=== PATIENT | male | born 1935 | race Caucasian/White ===

== ENCOUNTER 2017-12-20 06:50 | Day surgery (SDC) | payer MEDICARE, OTHER ==
[~2017-12-20] VITALS: Ht 172.7 cm; Wt 117.9 kg
[~2017-12-20 06:50] MED LIST: AMLODIPINE BESY10 MG PO; ANTI-DIARRHEA2 MG PO; ASPIRIN EC325 MG PO; CYCLOBENZAPRINE10 MG PO; DOXYCYCLINE HY100 M3 PO; GLYBURIDE5 MG PO; HYDROCHLOROTH12.5 MG PO; HYDROCODON-ACE1 EA10 PO; IMODIUM MULTI-1 EACH PO; LEVAQUIN500 MG PO; LOSARTAN POTAS100 MG PO; LOSARTAN POTASS25 MG PO; METOPROLOL TART25 MG PO; NORCO 5-325 TA1 EACH PO; NORTRIPTYLINE H10 MG PO; OMEPRAZOLE40 MG PO; OXYBUTYNIN CHLOR5 MG PO; PRILOSEC40 MG PO; PROBIOTIC1 EAC1 PO; REQUIP0.25 MG PO; ROPINIROLE HCL3 MG PO; TAMSULOSIN HCL0.4 MG PO; TUMS ULTRA400 MG PO; TUMS X-STR300 MG PO; TYLENOL EXTRA500 MG PO
--- NOTE | 2017-12-20 11:22 | NUR ---
12/20/17 Pierre2 Alvina Treviño 1116-PATIENT ARRIVED TO PACU ON 4L OM O2 SAT 100% PATIENT AWAKE DENIES PAIN OR NAUSEA. PATIENT REPORTS NUMBNESS TO FINGERS ABLE TO WIGGLE FINGERS AND MOVE HAND. 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 GOOD CAP REFILL AND WARMTH.
[2017-12-20] MEDS ORDERED: OXYCODON-ACETA1 EAC2 PO (11:29)
[2017-12-20] MEDS ORDERED: IBUPROFEN600 MG PO (11:29)
--- NOTE | 2017-12-20 11:50 | NUR ---
PT RESTING IN BED, ALERT AND ORIENTED. PT WAS DOING HIS BEST TO WAIT CALMLY FOR SURGERY. PT REQUESTED PRAYER, WILL CONTINUE TO FOLLOW NEEDED
--- NOTE | 2018-01-03 14:11 | OR ---
[facility] [address], [place] [address] Signed DATE OF OPERATION: 12/20/2017 SURGEON: Michael Lira MD PREOPERATIVE DIAGNOSIS: Right carpal tunnel syndrome. POSTOPERATIVE DIAGNOSIS: Right carpal tunnel syndrome. PROCEDURE: Right carpal tunnel release. ANESTHESIA: Right [place] block ( Efren Baxter CRNA) and local 10 mL of 0.25% Marcaine. INDICATION: This 82-year-old white man is a patient Dr. Quezada and has been evaluated by Dr. Perez as well for consideration of bilateral carpal tunnel syndrome. His main complaint of his hands is he has "dropping things all the time." He does not have the typical symptoms of tingling in the index, middle, and thumb areas, but does have difficulty in perception of holding objects and drop them all the time. This includes cups, paper, and so on. He does have some tingling of the left small finger suggestive of ulnar nerve entrapment. He does admit that he has "numbness" of his hands, right greater than left, generally speaking, and this has been going on for about 3 years. He underwent neurologic testing and evaluation by Dr. Perez in [place], confirming bilateral carpal tunnel syndrome. His neurologic studies show right worse than left findings. 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 He has been recommended by Dr. Perez to proceed with right carpal tunnel release followed by left carpal tunnel release in time. He understands the risks of operation including, but not limited to bleeding, infection, motor nerve injury and most importantly failure to cure his symptoms and signs. Understanding this, he wished to proceed. FINDINGS: The Colin block was good. Good exposure was noted. The right transverse carpal ligament was well identified and transected in the usual way to the distal wrist crease and onto the palmar fascia. The nerve itself was chronically inflamed. Limited neurolysis was undertaken as well. There was no complication noted at operation. DESCRIPTION OF PROCEDURE: Electronically Signed By: MICHAEL LIRA MD 01/03/18 1411 PATIENT NAME: DEEPALI JUDD OPERATIVE REPORT DATE OF : 35 REPORT #: [id number] PHYSICIAN: MICHAEL LIRA MD PCP: NATY QUEZADA DO REPORT IS CONFIDENTIAL AND NOT TO BE RELEASED WITHOUT AUTHORIZATION [facility] [address] [place] [id number] Signed The patient was brought to the operating room and given a right [place] block by the furnace installer. Preoperative antibiotic Ancef was given 2 g. Sequential compression device stockings were used as well. He was also given intravenous sedation. The right hand was prepared with a chlorhexidine solution and draped sterilely. A rolled blue towel was placed behind the right wrist and a malleable finger retractor applied to allow for good volar visualization. A small incision was made ulnar to the right thenar crease. Dissection carried through the subcutaneous tissue and the palmaris longus incision incised longitudinally revealing the underlying transverse carpal ligament. This was incised more fully. A hemostat was placed beneath it and further transection was undertaken onto the palmar fat. The hemostat was replaced proximally and the more proximal transverse carpal ligament transected using a 15-blade as well as tenotomy scissors under direct visualization with a hemostat protecting the underlying nerve. Examination of the nerve showed there to be chronic inflammatory change. A limited neurolysis was undertaken. Examination proximally and distally showed no sign of bleeding or other problem. A 10 mL of 0.25% Marcaine was injected locally during the course of the procedure, as he did have a mild amount of sensation during this time, though the block overall was good. The wound was then closed with interrupted 2-0 nylon suture. Xeroform dressing was applied as was a rolled piece of gauze and a Flexicon applied. As we were out of the usual cock-up wrist splint, a handmade fiberglass splint was made and the arm wrapped with an Angel wrap. Pressure was applied to the operative site and the tourniquet was taken down. Tourniquet time was 24 minutes. Once rubor returned and receded from the hand, pressure was withdrawn. The patient was transferred to recovery room in good condition having suffered no known complications. Sponge, needle, and counts reported as correct x3. MD JADYN Carlos/JOANNAL /[id number] cc: DO Michael You MD Electronically Signed By: MICHAEL LIRA MD 01/03/18 1411 PATIENT NAME: DEEPALI JUDD OPERATIVE REPORT DATE OF : 35 REPORT #: [id number] PHYSICIAN: MICHAEL LIRA MD PCP: NATY QUEZADA DO REPORT IS CONFIDENTIAL AND NOT TO BE RELEASED WITHOUT AUTHORIZATION [address] [place], [place] [address] Signed Copies: NATY QUEZADA JOHN MD ~ Electronically Signed By: MICHAEL LIRA MD 01/03/18 1411 PATIENT NAME: CARLALYDEEPALI OPERATIVE REPORT DATE OF : 35 REPORT #: [id number] PHYSICIAN: MICHAEL LIRA MD PCP: NATY QUEZADA DO REPORT IS CONFIDENTIAL AND NOT TO BE RELEASED WITHOUT AUTHORIZATION
== END 2017-12-20 12:30 | disposition home or self-care (01) ==
LOC: DS 06:50 → OPS 06:50 → DS 08:15 → OPS 12:30
PROVIDERS: Surgery
PROC: 01N50ZZ Release Median Nerve, Open Approach (ICD-10-PCS; principal; 2017-12-20 08:15)
DX: G56.03 Carpal tunnel syndrome, bilateral upper limbs (principal); E11.9 Type 2 diabetes mellitus without complications; K21.9 Gastro-esophageal reflux disease without esophagitis; E78.00 Pure hypercholesterolemia, unspecified; I10 Essential (primary) hypertension; G25.81 Restless legs syndrome; E66.01 Morbid (severe) obesity due to excess calories; Z88.8 Allergy status to other drugs, medicaments and biological substances; Z79.899 Other long term (current) drug therapy; Z90.49 Acquired absence of other specified parts of digestive tract; Z98.890 Other specified postprocedural states; Z68.39 Body mass index [BMI] 39.0-39.9, adult; Z85.46 Personal history of malignant neoplasm of prostate
CPT/HCPCS: 01810; J0690; J2250; J3010; J7120

== ENCOUNTER 2017-12-26 13:24 | Emergency (ER) | payer MEDICARE, OTHER ==
[~2017-12-26] VITALS: Ht 172.7 cm; Wt 116.1 kg
[~2017-12-26 13:24] MED LIST changes: +IBUPROFEN600 MG PO; +OXYCODON-ACETA1 EAC2 PO
== END 2017-12-26 14:56 | disposition home or self-care (01) ==
LOC: ED 13:24
DX: M79.661 Pain in right lower leg (principal); E78.5 Hyperlipidemia, unspecified; I10 Essential (primary) hypertension; I25.10 Atherosclerotic heart disease of native coronary artery without angina pectoris; E11.9 Type 2 diabetes mellitus without complications; K21.9 Gastro-esophageal reflux disease without esophagitis; E66.9 Obesity, unspecified; Z88.8 Allergy status to other drugs, medicaments and biological substances; Z79.899 Other long term (current) drug therapy; Z79.2 Long term (current) use of antibiotics; Z79.82 Long term (current) use of aspirin; Z85.46 Personal history of malignant neoplasm of prostate
CPT/HCPCS: 93971; 99284

== ENCOUNTER 2018-01-07 21:59 | Emergency (ER) | payer MEDICARE, OTHER ==
[~2018-01-07] VITALS: Ht 172.7 cm; Wt 117.9 kg
== END 2018-01-08 00:15 | disposition home or self-care (01) ==
LOC: ED 21:59
DX: G89.29 Other chronic pain (principal); M54.5 Low back pain; I10 Essential (primary) hypertension; E11.9 Type 2 diabetes mellitus without complications; K21.9 Gastro-esophageal reflux disease without esophagitis; E66.9 Obesity, unspecified; Z87.891 Personal history of nicotine dependence; Z88.8 Allergy status to other drugs, medicaments and biological substances; Z79.84 Long term (current) use of oral hypoglycemic drugs; Z79.899 Other long term (current) drug therapy; Z79.82 Long term (current) use of aspirin
CPT/HCPCS: 96374; 96375; 99283; J1885; J2930

== ENCOUNTER 2019-02-07 08:40 | Emergency (ER) | payer MEDICARE, OTHER ==
[~2019-02-07] VITALS: Ht 172.7 cm; Wt 115.7 kg
--- OUTSIDE RECORDS SUMMARY | ~2019-02-07 | XMS | Encounter Summary ---
Demographics + + + | Address | [address] | | | [place] [address] | + + + | Home Phone | | + + + | Preferred Language | Unknown | + + + | Marital Status | | + + + | Christian Affiliation | Unknown | + + + | Race | Unknown | + + + | Ethnic Group | Unknown | + + + Author + + + | Author | [facility] | | | and Rezaana | + + + | Organization | [facility] | | | and Rezaana | [...] Team Providers + +------+ + | Care Euclid Operator Name | Role | Phone | + [...] | | stenosis | [address] | [place] | | | | | Lumbar | [address] | [address] | | | | | stenosis | [place], | [facility] [place] | | | | | with | [place] [address] | [address] Phone: | | | | | neurogenic | Phone: | [phone] | | | | | claudication | [phone] | Fax: | | | | | Lumbar | Fax: | [phone] | | | | | radiculopath | [phone] | | | | | | y [...] | | stenosis | [place], | [place], [place] | | | | | with | [place] [address] | [address] Phone: | | | | | neurogenic | Phone: | [phone] | | | | | claudication | [phone] | Fax: | | | | | Lumbar | Fax: | [phone] | | | | | radiculopath | [phone] | | | | | | y [...] + + | 02/04/ | Office | [facility] | Jose Martinez, | Lumbar radiculopathy | | 2019 | Visit | PHYSIATRY [address] | PA-C [address] | (Primary Dx); | | | | [place], | [address] [place] | Lumbar foraminal | | | | [place] [address] | [place] [address] | stenosis; Lumbar | | | | [phone] | [phone] | stenosis with | | | | [...] of the procedure you must provide a shuttle van driver to take you home. For all [...] press against a nerve. Date Last Reviewed: 12/27/201719994877-7457 [employer]. [address] [place] [address], [place] [address]. [facility]. This information is not intended as a substitute for professional medical care. Always follow your healthcare professional's instructions. documented in this encounter Progress Notes Jose Martinez PA-C - 02/04/2019 1040 PDTFormatting of this note might be different from th e original. Jose Martinez PA-C [address] [facility], [address] [place] [address] FAX: PHYSICAL MEDICINE AND REHABILITATION H&P CHIEF [...] Dependent edema Due to inactivity Depression Diabetes ([facility]) Gastric reflux Heart disease Hereditary and idiopathic neuropathy, unspecified High cholesterol History of blood transfusion History of fracture Pars interarticularis History of ulceration Ulcer Hypertension Left atrial enlargement Lumbago Lumbar spondylosis Murmur Echo 09/2017 Neuropathy Feet Obstructive sleep apnea (adult) (pediatric) Other spondylosis, lumbar region Peripheral neuropathy Pneumonia Prostate cancer ([facility]) 1994 Radiation: 10/1995-12/1995, [facility] Right atrial enlargement Type 2 diabetes mellitus without complication ([facility]) PAST SURGICAL HISTORY: Past Surgical History: Procedure Laterality Date CARPAL TUNNEL RELEASE Right 12/17/2017 CATARACT REMOVAL Bilateral CORONARY ARTERY BYPASS GRAFT 07/31/2004 [facility] CORONARY ARTERY BYPASS GRAFT 07/09/2012 [facility] GALLBLADDER SURGERY 04/19/2007 Dr. 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 He has appropriate fund of knowledge [...] PT (multiple sessions over the years) and resident care aide. Unfortunately Feliz Martinez continues to have significant [...] | | | [address] [facility] | | | | | | [place] [address] | | | | | | [phone] | | | | | | | | | | | | [place] | | +--------+ + + + + [...] + +--------+ + + | Dr. Auguste[facility] | Routin | Lumbar foraminal | [...]
--- OUTSIDE RECORDS SUMMARY | ~2019-02-07 | XMS | Clinical Summary ---
Demographics + + + | Address | [address] | | | [place] [address] | + + + | Home Phone | | + + + | Preferred Language | Unknown | + + + | Marital Status | | + + + | Sabianist Affiliation | Unknown | + + + | Race | Unknown | + + + | Ethnic Group | Unknown | + + + Author + + + | Author | [facility] | | | and Rezaana | + + + | Organization | [facility] | | | and Rezaana [...] Team Providers + +------+ + | Care Gimp Tacker Name | Role | Phone | + [...] LComment: | | 09/25/2016 - letter from [facility]; poss exposure NTM in bypass Nov | [...] | 2018 | Encounter | | KEVIN Accounts Pay[employer] Professional, | | | | | | [facility] [...] | | | | | | [place] [address] | | | | | | [phone] | | | | | | | | | | | | Accounts Payable Professional, [facility] | | +--------+ + + + [...] + +--------+ | MEDICARE | MEDICA | [id number] | | [phone] | | Medica | | | RE | | 000-Pr | 5 | | re | | | PART A | | esent | | | | | | AND B | | | | | | + +--------+ +--------+ + +--------+ | MODA | MODA | [id number] | 10/29/19 | [phone] | [address] | Indemn | | | HEALTH | | 14-Pre | 9 | [address] | ity | | | MDCR | | sent | | [place], | | | | [place] | | | | [place] [address] | | + +--------+ +--------+ + +--------+ [...] | [address] [place] | | | [place] | | | 5 (Home) | [address] | + +--------+ +--------+ + + Advance Directives Patient has advance care planning documents on file. For more information, please contact:[facility] [address]
--- OUTSIDE RECORDS SUMMARY | ~2019-02-07 | XMS | Encounter Summary ---
Demographics + + + | Address | [address] | | | [place] [address] | + + + | Home Phone | | + + + | Preferred Language | Unknown | + + + | Marital Status | | + + + | Anglican Affiliation | Unknown | + + + | Race | Unknown | + + + | Ethnic Group | Unknown | + + + Author + + + | Author | [facility] | + + + | Organization | [facility] | + + + | Address | Unknown | + + + | Phone | Unavailable | + + + Support + + +---------+ + | Name | Relationship | Address | Phone | + + +---------+ + | Salas Martinez | ECON | Unknown | | + + +---------+ + Care Team Providers + +------+ + | Care Acid Tester Name | Role | Phone | + [...] [place] | | | | | | [address] | | | | | | [phone] | | | +--------+ + + + [...] | | | | | | [place] [address] | | | | | | [phone] | | | | | | | | +--------+---------+ + + + as of this encounter Visit Diagnoses Not on filein this encounter"
--- OUTSIDE RECORDS SUMMARY | ~2019-02-07 | XMS | Clinical Summary ---
Demographics + + + | Address | [address] | | | [place] [address] | + + + | Home Phone | | + + + | Preferred Language | Unknown | + + + | Marital Status | | + + + | Bahai Affiliation | Unknown | + + + | Race | Unknown | + + + | Ethnic Group | Unknown | + + + Author + + + | Author | [facility] | + + + | Organization | [facility] | + + + | Address | Unknown | + + + | Phone | Unavailable | + + + Support + + +---------+ + | Name | Relationship | Address | Phone | + + +---------+ + | Salas Martinez | ECON | Unknown | | + + +---------+ + Care Team Providers + +------+ + | Care Education Rn Name | Role | Phone | + [...] log | | | | | | [phone]) | +--------+ + + + + | 01/07/ | Office | | Henok Dumont, | Hypertension, | | 2018 | Visit | | MD | unspecified type | | | | | | (Primary Dx); | | | | | | Coronary artery | | | | | | disease involving | | | | | | [place] coronary | | | | | | artery of [place] | | | | | | heart with other | | | | | | form of angina | | | | | | pectoris ([facility]); S/P | | | | | | CABG x 3; S/P PTCA | | | | | | (percutaneous | | | | | | transluminal | | | | | | coronary | | | | | | angioplasty); NSTEMI | | | | | | (non-ST elevated | | | | | | myocardial | | | | | | infarction) ([facility]); | | | | | | Hyperlipidemia, [...] | | | | | | [place] [address] | | | | | | [phone] | | | | | | | [...] | | 2015 | 5 | | [id number]: Qty: 1 on | | | | | | /[id number] | | 07/09/2012 by Davi, | | [...] + + + + | Calculated P [place] | 33 | degrees | [facility] | + + + + + | Calculated R [place] | 9 | degrees | [facility] | + + + + + | Calculated T [place] | 27 | degrees | [facility] [...] | | | | | by [facility] Read Only, | | | | | [facility] Kate ([id number]), | | | | | assignment editor oKrey Deluna | | | | | (253) on 01/07/2019 | | | | | 3:14:57 PM | | | + + + + + + + + + + | Performing | Address | City/State/Zipcode | Phone Number | | Organization | | | | + + + + + | [facility] | [address] | [place] [address] | | + + + + + [...] +------+-------+ + | MEDICARE | MEDICA | [id number] | | | [address] | | | RE | | | | [place], [place] [address] | | | IP-OP | | | | | + +--------+ +------+-------+ + | ODS HEALTH PLAN | ODS - | [id number] | | | | | | GENERI [...] | | | [place] | | | [phone] | [address] | + +--------+ +--------+ + +
--- OUTSIDE RECORDS SUMMARY | ~2019-02-07 | XMS | Encounter Summary ---
Demographics + + + | Address | [address] | | | [place] [address] | + + + | Home Phone | | + + + | Preferred Language | Unknown | + + + | Marital Status | | + + + | Methodist Affiliation | Unknown | + + + | Race | Unknown | + + + | Ethnic Group | Unknown | + + + Author + + + | Author | [facility] | + + + | Organization | [facility] | + + + | Address | Unknown | + + + | Phone | Unavailable | + + + Support + + +---------+ + | Name | Relationship | Address | Phone | + + +---------+ + | Salas Martinez | ECON | Unknown | | + + +---------+ + Care Team Providers + +------+ + | Care Broker Assistant Name | Role | Phone | [...] + + | 01/07/ | Office | [facility] | Henok Dumont, | Hypertension, | | 2019 | Visit | Cardiology Fazal | MD [address] | unspecified type | | | | [address] | [place], | (Primary Dx); | | | | [facility] [address] | [place] [address] | Coronary artery | | | | [place] [address] | [phone] | disease involving | | | | [phone] | | [place] coronary | | | | | | artery of [place] | | | | | | heart with other | | | | | | form of angina | | | | | | pectoris ([facility]); S/P | | | | | [...] | | | | | | infarction) ([facility]); | | | | | | [...] 70-80% > 3.0 x 16 mm Taxus LLOA, patent ROSA, occlud ed SVGs to OM, [...] Hypertension Neuropathy NSTEMI (non-ST elevated myocardial infarction) ([facility]) 07/05/2012 NSTEMI Occlusion of carotid artery < 50% MAICOL stenosis 2011 Prostate cancer ([facility]) 1994 radiation therapy 1995 RLS (restless [...] - REDO; Surgeon: Lauren Tomlinson MD; Location: [facility]; Service: C ardiac; Laterality: N/A; [...] Electrocardiogram, 12-lead Coronary artery disease involving [place] coronary artery of [place] heart with other form of angina pectoris (HCC) S/P CABG x 3 S/P PTCA (percutaneous transluminal coronary angioplasty) NSTEMI (non-ST elevated myocardial infarction) ([facility]) Hyperlipidemia, unspecified hyperlipidemia type Pedal edema [...] | | | | | | [place] [address] | | | | | | [phone] | | | | | | | [...] + + + + | Calculated P [place] | 33 | degrees | [facility] | + + + + + | Calculated R [place] | 9 | degrees | [facility] | + + + + + | Calculated T [place] | 27 | degrees | [facility] [...] | | | | | by [facility] [place] Read Only, | | | | | [facility] Kate (299), | | | | | greeting card editor Korey Deluna | | | | | (253) on 01/07/2019 | | | | | 3:14:57 PM | | | + + + + + + + + + + | Performing | Address | City/State/Zipcode | Phone Number | | Organization | | | | + + + + + | [facility] | [address] | [place] [address] | | + + + + + in this encounter Visit Diagnoses + + | Diagnosis | + + | Hypertension, unspecified type - Primary | + + | Coronary artery disease involving [place] coronary artery of [place] heart with other | | form of [...]
--- OUTSIDE RECORDS SUMMARY | ~2019-02-07 | XMS | Encounter Summary ---
Demographics + + + | Address | [address] | | | [place] [address] | + + + | Home Phone | | + + + | Preferred Language | Unknown | + + + | Marital Status | | + + + | Amish Affiliation | Unknown | + + + | Race | Unknown | + + + | Ethnic Group | Unknown | + + + Author + + + | Author | [facility] | | | and Rezaana | + + + | Organization | [facility] | | | and [...] Team Providers + +------+ + | Care Automatic Buffer Name | Role | Phone | + [...] | | stenosis | [address] | [place] | | | | | Lumbar | [address] | [address] | | | | | stenosis | [place], | [facility] [place] | | | | | with | [place] [address] | [address] Phone: | | | | | neurogenic | Phone: | [phone] | | | | | claudication | [phone] | Fax: | | | | | Lumbar | Fax: | [phone] | | | | | radiculopath | [phone] | | | | | | y [...] | | stenosis | [place], | [place], [place] | | | | | with | [place] [address] | [address] Phone: | | | | | neurogenic | Phone: | [phone] | | | | | claudication | [phone] | Fax: | | | | | Lumbar | Fax: | [phone] | | | | | radiculopath | [phone] | | | | | | y [...] + + | 02/04/ | Office | [facility] | Jose Martinez, | Lumbar radiculopathy | | 2019 | Visit | PHYSIATRY [address] | PA-C [address] | (Primary Dx); | | | | [place], | [address] [place] | Lumbar foraminal | | | | [place] [address] | [place] [address] | stenosis; Lumbar | | | | [phone] | [phone] | stenosis with | | | | [...] of the procedure you must provide a guard driver to take you home. For all [...] press against a nerve. Date Last Reviewed: 12/27/201719993242-7946 [employer]. [address] [place] [address], [place] [address]. All [facility] center[facility] ts reserved. This information is not intended as a substitute for professional medical care. Always follow your healthcare professional's instructions. documented in this encounter Progress Notes Jose Martinez PA-C - 02/04/2019 1040 PDTFormatting of this note might be different from th e original. Jose Martinez PA-C [address] [facility], [address] [place] [address] FAX: PHYSICAL MEDICINE AND REHABILITATION H&P CHIEF [...] Dependent edema Due to inactivity Depression Diabetes ([facility]) Gastric reflux Heart disease Hereditary and idiopathic neuropathy, unspecified High cholesterol History of blood transfusion History of fracture Pars interarticularis History of ulceration Ulcer Hypertension Left atrial enlargement Lumbago Lumbar spondylosis Murmur Echo 09/2017 Neuropathy Feet Obstructive sleep apnea (adult) (pediatric) Other spondylosis, lumbar region Peripheral neuropathy Pneumonia Prostate cancer ([facility]) 1994 Radiation: 10/1995-12/1995, [facility] Right atrial enlargement Type 2 diabetes mellitus without complication ([facility]) PAST SURGICAL HISTORY: Past Surgical History: Procedure Laterality Date CARPAL TUNNEL RELEASE Right 12/17/2017 CATARACT REMOVAL Bilateral CORONARY ARTERY BYPASS GRAFT 07/31/2004 [facility] CORONARY ARTERY BYPASS GRAFT 07/09/2012 [facility] GALLBLADDER SURGERY 04/19/2007 Dr. Vinson, [facility] PROSTATE SURGERY 1994 Prostate Cancer [...] has no apparent deficits with short or watermelon harvesting supervisor memory. He has appropriate fund of [...] PT (multiple sessions over the years) and care team coordinator scheduler. Unfortunately Feliz Martinez continues to have significant [...] | | | | [address] [facility] | | | | | | [place] [address] | | | | | | [phone] | | | | | | | | | | | | Contracting ExecutiveDarrell | | +--------+ + + + + [...] + +--------+ + + | Dr. Auguste_Neurosurgery [facility] | Routin | Lumbar foraminal | Ordered: [...]
--- OUTSIDE RECORDS SUMMARY | ~2019-02-07 | XMS | Encounter Summary ---
Demographics + + + | Address | [address] | | | [place] [address] | + + + | Home Phone | | + + + | Preferred Language | Unknown | + + + | Marital Status | | + + + | Christian Affiliation | Unknown | + + + | Race | Unknown | + + + | Ethnic Group | Unknown | + + + Author + + + | Author | [facility] | | | and Rezaana | + + + | Organization | [facility] | | | and Rezaana [...] Team Providers + +------+ + | Care Pulp Roller Name | Role | Phone | + [...] + + | 11/25/ | Office | [facility] [place] | Juan, Jose, | Lumbar foraminal | | 2019 | Visit | PHYSIATRY [address] | PA-C [address] | stenosis (Primary | | | | [place], | [address] [place] | Dx); Lumbar stenosis | | | | [place] [address] | [place] [address] | with neurogenic | | | | [phone] | [phone] | claudication; Lumbar | | | | [...] of the procedure you must provide a emt driver to take you home. For all procedur es it is recommended that someone else drive you home. documented in this encounter Progress Notes Jose Martinez PA-C - 11/25/2018 1120 PSTFormatting of this note might be different from reva alan. Jose Martinez PA-C [address] [facility], [address] [place] [address] FAX: PHYSICAL MEDICINE AND REHABILITATION [...] Pneumonia Prostate cancer (HCC) 1994 Radiation: 10/1995-12/1995, [facility] Right atrial enlargement Type 2 diabetes mellitus without complication ([facility]) PAST SURGICAL HISTORY: Past Surgical History: Procedure Laterality Date CARPAL TUNNEL RELEASE Right 12/17/2017 CATARACT REMOVAL Bilateral CORONARY ARTERY BYPASS GRAFT 07/31/2004 [facility] CORONARY ARTERY BYPASS GRAFT 07/09/2012 [facility] GALLBLADDER SURGERY 04/19/2007 Dr. Vinson, [facility] PROSTATE SURGERY 1994 Prostate Cancer [...] (multiple sessions over the years) and career development director. Unfortunately Feliz Martinez continues to have significant [...] | | | | | | [place] [address] | | | | | | [phone] | | | | | | | | | | | | Child Adolescent Psychiatrist, [facility] | | +--------+ + + + [...]
--- OUTSIDE RECORDS SUMMARY | ~2019-02-07 | XMS | Encounter Summary ---
Demographics + + + | Address | [address] | | | [place] [address] | + + + | Home Phone | | + + + | Preferred Language | Unknown | + + + | Marital Status | | + + + | Catholic Affiliation | Unknown | + + + | Race | Unknown | + + + | Ethnic Group | Unknown | + + + Author + + + | Author | [facility] | + + + | Organization | [facility] | + + + | Address | Unknown | + + + | Phone | Unavailable | + + + Support + + +---------+ + | Name | Relationship | Address | Phone | + + +---------+ + | Salas Martinez | ECON | Unknown | | + + +---------+ + Care Team Providers + +------+ + | Care Credit Union Examiner Name | Role | Phone | + [...] | | [address] | | [phone]) | | | | [place] | | | | | | [address] | | | | | | [phone] | | | +--------+ + + + [...] | | | | | | [place] [address] | | | | | | [phone] | | | | | | | | +--------+---------+ + + + as of this encounter Visit Diagnoses Not on filein this encounter"
--- OUTSIDE RECORDS SUMMARY | ~2019-02-07 | XMS | Encounter Summary ---
Demographics + + + | Address | [address] | | | [place] [address] | + + + | Home Phone | | + + + | Preferred Language | Unknown | + + + | Marital Status | | + + + | Hinduism Affiliation | Unknown | + + + | Race | Unknown | + + + | Ethnic Group | Unknown | + + + Author + + + | Author | [facility] | | | and Rezaana | + + + | Organization | [facility] | | | and Rezaana [...] Team Providers + +------+ + | Care Rubber Tubing Backer Name | Role | Phone | + [...] + + | 11/25/ | Office | [facility] [place] | Juan, Jose, | Lumbar foraminal | | 2019 | Visit | PHYSIATRY [address] | PA-C [address] | stenosis (Primary | | | | [place], | [address] [place] | Dx); Lumbar stenosis | | | | [place] [address] | [place]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 For all procedur es it is recommended that someone else drive you home. documented in this encounter Progress Notes Jose Martinez PA-C - 11/25/2018 1120 PSTFormatting of this note might be different from reva alan. Jose Martinez PA-C [address] [facility], [address] [place] [address] FAX: PHYSICAL MEDICINE AND REHABILITATION [...] Pneumonia Prostate cancer (HCC) 1994 Radiation: 10/1995-12/1995, [facility] Right atrial enlargement Type 2 diabetes mellitus without complication ([facility]) PAST SURGICAL HISTORY: Past Surgical History: Procedure Laterality Date CARPAL TUNNEL RELEASE Right 12/17/2017 CATARACT REMOVAL Bilateral CORONARY ARTERY BYPASS GRAFT 07/31/2004 [facility] CORONARY ARTERY BYPASS GRAFT 07/09/2012 [facility] GALLBLADDER SURGERY 04/19/2007 Dr. Vinson, [facility] PROSTATE SURGERY 1994 Prostate Cancer CURRENT [...] has no apparent deficits with short or assisted memory. He has appropriate fund of knowledge [...] PT (multiple sessions over the years) and ambulatory care nurse. Unfortunately Feliz Martinez continues to [...] | | | | | | [place] [address] | | | | | | [phone] | | | | | | | | | | | | Channeler Runner, [facility] | | +--------+ + + + [...]
--- OUTSIDE RECORDS SUMMARY | ~2019-02-07 | XMS | Clinical Summary ---
Demographics + + + | Address | [address] | | | [place] [address] | + + + | Home Phone | | + + + | Preferred Language | Unknown | + + + | Marital Status | | + + + | Alevism Affiliation | Unknown | + + + | Race | Unknown | + + + | Ethnic Group | Unknown | + + + Author + + + | Author | [facility] | | | and Rezaana | + + + | Organization | [facility] | | | and Rezaana | [...] Team Providers + +------+ + | Care Regional Safety Manager Name | Role | Phone | [...] LComment: | | 09/25/2016 - letter from [facility]; poss exposure NTM in bypass Nov | [...] | 2018 | Encounter | | KEVIN Residential Solar Consultant, | | | | | | [facility] [...] | | | | | | [place] [address] | | | | | | [phone] | | | | | | | | | | | | Residential Solar Consultant, [facility] | | +--------+ + + + [...] + +--------+ | MEDICARE | MEDICA | [id number] | | [phone] | | Medica | | | RE | | 000-Pr | 5 | | re | | | PART A | | esent | | | | | | AND B | | | | | | + +--------+ +--------+ + +--------+ | MODA | MODA | [id number] | 10/29/19 | [phone] | [address] | Indemn | | | HEALTH | | 14-Pre | 9 | [address] | ity | | | MDCR | | sent | | [place], | | | | [place] | | | | [place] [address] | | + +--------+ +--------+ + +--------+ [...] rosey | | | 5 (Home) | [address] | + +--------+ +--------+ + + Advance Directives Patient has advance care planning documents on file. For more information, please contact:[facility] [place] [address]
--- OUTSIDE RECORDS SUMMARY | ~2019-02-07 | XMS | Encounter Summary ---
Demographics + + + | Address | [address] | | | [place] [address] | + + + | Home Phone | | + + + | Preferred Language | Unknown | + + + | Marital Status | | + + + | Anglican Affiliation | Unknown | + + + | Race | Unknown | + + + | Ethnic Group | Unknown | + + + Author + + + | Author | [facility] | | | and Rezaana | + + + | Organization | [facility] | | | and Rezaana [...] Team Providers + +------+ + | Care Airflight Attendants Supervisor Name | Role | Phone | [...] | Lumbar | Charli, | [address] | | | | | radiculopath | Elias Leal MD | [place], | | | | | y | [address] | [place] | | | | | Procedures | [place] | [address] | | | | | [place] INJECT | [place], [place] | Phone: | | | | | ANES/STEROID | [address] | [phone] | | | | | [place] | Phone: | Fax: | | | | | LUMBAR/SACRA | [phone] | [phone] | | | | | [address] | Fax: | | | | | | GUIDE ,1 | [phone] | | | | | | L[place]EL [place] | | | | | | | [...] + + | 11/25/ | Hospital | [facility] | Jose Martinez, | Lumbar radiculopathy | | 2019 | Encounter | MED CTR XRAY [address] | PA-C [address] | | | | | [place] | [address] [place] | | | | | [place] [address] | [place] [address] | | | | | [phone] | [phone] | | | | | | | | | | | | Avionics Systems Integration SpecialistMelany | | +--------+ + + + + [...] | | | | [address] [facility] | | | | | | [place] [address] | | | | | | [phone] | | | | | | | | | | | | Avionics Systems Integration SpecialistDarrell | | +--------+ + + + + [...]
--- OUTSIDE RECORDS SUMMARY | ~2019-02-07 | XMS | Encounter Summary ---
Demographics + + + | Address | [address] | | | [place] [address] | + + + | Home Phone | | + + + | Preferred Language | Unknown | + + + | Marital Status | | + + + | Scientologist Affiliation | Unknown | + + + | Race | Unknown | + + + | Ethnic Group | Unknown | + + + Author + + + | Author | [facility] | + + + | Organization | [facility] | + + + | Address | Unknown | + + + | Phone | Unavailable | + + + Support + + +---------+ + | Name | Relationship | Address | Phone | + + +---------+ + | Salas Martinez | ECON | Unknown | | + + +---------+ + Care Team Providers + +------+ + | Care Senior Management Consultant Name | Role | Phone | [...] | | [address] | | [address]) | | | | [place] | | | | | | [address] | | | | | | [phone] | | | +--------+ + + + [...] | | | | | | [place] [address] | | | | | | [phone] | | | | | | | | +--------+---------+ + + + as of this encounter Visit Diagnoses Not on filein this encounter"
--- OUTSIDE RECORDS SUMMARY | ~2019-02-07 | XMS | Clinical Summary ---
Demographics + + + | Address | [address] | | | [place] [address] | + + + | Home Phone | | + + + | Preferred Language | Unknown | + + + | Marital Status | | + + + | Holiness Affiliation | Unknown | + + + | Race | Unknown | + + + | Ethnic Group | Unknown | + + + Author + + + | Author | [facility] [email or web address] [facility] | + + + | Organization | [facility] [email or web address] [facility] | + + + | Address | Unknown | + + + | Phone | Unavailable | + + + Support + + +---------+ + | Name | Relationship | Address | Phone | + + +---------+ + | Salas Martinez | ECON | Unknown | | + + +---------+ + Care Team Providers + +------+ + | Care Carpenter Mold Name | Role | Phone | + [...] log | | | | | | [phone]) | +--------+ + + + + | 01/07/ | Office | | Henok Dumont, | Hypertension, | | 2018 | Visit | | MD | unspecified type | | | | | | (Primary Dx); | | | | | | Coronary artery | | | | | | disease involving | | | | | | moapa coronary | | | | | | artery of mo[place] | | | | | | heart [...] | | | | | | [place] [address] | | | | | | [phone] | | | | | | | [...] | | 2015 | 5 | | [id number]: Qty: 1 on | | | | | | /[id number] | | 07/09/2012 by Davi, | | [...] + + + + | Calculated P Sinai | 33 | degrees | [facility] EKG | + + + + + | Calculated R Sinai | 9 | degrees | [facility] EKG | + + + + + | Calculated T Sinai | 27 | degrees | [facility] EKG [...] | | | | | by [facility] [place] Read Only, | | | | | ICA Kate ([id number]), | | | | | clinical editor Korey Deluna | | | | | (253) on 01/07/2019 | | | | | 3:14:57 PM | | | + + + + + + + + + + | Performing | Address | City/State/Zipcode | Phone Number | | Organization | | | | + + + + + | [facility] | [address] | [place] [address] | | + + + + + [...] +------+-------+ + | MEDICARE | MEDICA | [id number] | | | [address] | | | RE | | | | [place], [place] [address] | | | IP-OP | | | | | + +--------+ +------+-------+ + | [employer] | ODS - | [id number] | | | | | | GENERI [...] | | | rosey | | | [phone] | [phone] | + +--------+ +--------+ + +
--- OUTSIDE RECORDS SUMMARY | ~2019-02-07 | XMS | Encounter Summary ---
Demographics + + + | Address | [address] | | | [place] [address] | + + + | Home Phone | | + + + | Preferred Language | Unknown | + + + | Marital Status | | + + + | Mandaen Affiliation | Unknown | + + + | Race | Unknown | + + + | Ethnic Group | Unknown | + + + Author + + + | Author | [facility] | + + + | Organization | [facility] | + + + | Address | Unknown | + + + | Phone | Unavailable | + + + Support + + +---------+ + | Name | Relationship | Address | Phone | + + +---------+ + | Salas Martinez | ECON | Unknown | | + + +---------+ + Care Team Providers + +------+ + | Care Java Programming Professor Name | Role | Phone | [...] 01/07/ | Office | [facility] | Henok Dumont, | Hypertension, | | 2019 | Visit | Cardiology Fazal | MD [address] | unspecified type | | | | [address] | [place], | (Primary Dx); | | | | [facility] [address] | [place] [address] | Coronary artery | | | | [place] [address] | [phone] | disease involving | | | | [phone] | | [place] coronary | | | | | | artery of [place] | | | | | | heart with other | | | | | | form of angina | | | | | | pectoris ([facility]); S/P | | | | | [...] | | | | | | infarction) ([facility]); | | | | | | [...] Hypertension Neuropathy NSTEMI (non-ST elevated myocardial infarction) ([facility]) 07/05/2012 NSTEMI Occlusion of carotid artery < 50% MAICOL stenosis 2011 Prostate cancer ([facility]) 1994 radiation therapy 1995 RLS (restless [...] - REDO; Surgeon: Lauren Tomlinson MD; Location: [facility] OR; Service: C ardiac; Laterality: [...] - Electrocardiogram, 12-lead 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 3 S/P PTCA (percutaneous transluminal coronary angioplasty) NSTEMI (non-ST elevated myocardial infarction) ([facility]) Hyperlipidemia, unspecified hyperlipidemia type Pedal edema [...] | | | | | | [place] [address] | | | | | | [phone] | | | | | | | [...] + + + + | Calculated P Redford | 33 | degrees | [facility] EKG | + + + + + | Calculated R Redford | 9 | degrees | [facility] EKG | + + + + + | Calculated T Redford | 27 | degrees | [facility] EKG [...] | | | | | by [facility] [place] Read Only, | | | | | ICA Kate ([id number]), | | | | | purchase request editor Korey Deluna | | | | | (253) on 01/07/2019 | | | | | 3:14:57 PM | | | + + + + + + + + + + | Performing | Address | City/State/Zipcode | Phone Number | | Organization | | | | + + + + + | [facility] | [address] | [place] [address] | | + + + + + in this encounter Visit Diagnoses + + | Diagnosis | + + | Hypertension, unspecified type - Primary | + + | Coronary artery disease involving guidivil[place] coronary artery of guidivil[place] heart with other | | form of [...]
--- OUTSIDE RECORDS SUMMARY | ~2019-02-07 | XMS | Encounter Summary ---
Demographics + + + | Address | [address] | | | [place] [address] | + + + | Home Phone | | + + + | Preferred Language | Unknown | + + + | Marital Status | | + + + | Presybeterian Affiliation | Unknown | + + + | Race | Unknown | + + + | Ethnic Group | Unknown | + + + Author + + + | Author | [facility] | | | and Rezaana | + + + | Organization | [facility] | | | and Rezaana [...] Team Providers + +------+ + | Care Room Cleaner Name | Role | Phone | [...] | Lumbar | Charli, | [address] | | | | | radiculopath | Elias Leal MD | [place], | | | | | y | [address] | [place] | | | | | Procedures | [place] | [address] | | | | | [place] INJECT | [place] | Phone: | | | | | ANES/STEROID | [address] | [phone] | | | | | FORAMEN | Phone: | Fax: | | | | | LUMBAR/SACRA | [phone] | [phone] | | | | | L [address] IMG | Fax: | | | | | | GUIDE ,1 | [phone] | | | | | | LEVEL [...] + + | 11/25/ | Hospital | [facility] | Jose Martinez, | Lumbar radiculopathy | | 2019 | Encounter | MED CTR XRAY [address] | PA-C [address] | | | | | [place] | [address] [place] | | | | | [place] [address] | [place] [address] | | | | | [phone] | [phone] | | | | | | | | | | | | Behavioral Health TechMelany | | +--------+ + + + + [...] | | | | [address] [facility] | | | | | | [place] [address] | | | | | | [phone] | | | | | | | | | | | | Behavioral Health TechDarrell | | +--------+ + + + + [...]
--- OUTSIDE RECORDS SUMMARY | ~2019-02-07 | XMS | Encounter Summary ---
Demographics + + + | Address | [address] | | | [place] [address] | + + + | Home Phone | | + + + | Preferred Language | Unknown | + + + | Marital Status | | + + + | Synagogue Affiliation | Unknown | + + + | Race | Unknown | + + + | Ethnic Group | Unknown | + + + Author + + + | Author | [facility] [employer] [facility] | + + + | Organization | [facility] [employer] [facility] | + + + | Address | Unknown | + + + | Phone | Unavailable | + + + Support + + +---------+ + | Name | Relationship | Address | Phone | + + +---------+ + | Salas Martinez | ECON | Unknown | | + + +---------+ + Care Team Providers + +------+ + | Care Cake Maker Name | Role | Phone | + [...] [place] | | | | | | [address] | | | | | | [phone] | | | +--------+ + + + [...] | | | | | | [place] [address] | | | | | | [phone] | | | | | | | | +--------+---------+ + + + as of this encounter Visit Diagnoses Not on filein this encounter"
[~2019-02-07 08:40] MED LIST changes: +ANTI-DIARRHEAL2 MG PO; +CEPHALEXIN500 MG PO; +CHOLESTYRAMINE P4 GM PO; +COLESTIPOL HCL5 GM PO; +COLESTIPOL PO; +DICLOFENAC SOD100 G1; +DOXAZOSIN MESYLA4 MG PO; +FLUOXETINE HCL20 M1 PO; +FLUOXETINE HCL20 MG PO; +GLIMEPIRIDE4 MG PO; -HYDROCHLOROTH12.5 MG PO; +HYDROCHLOROTHIA25 MG PO; +KAOPECTATE262 MG/15 PO; +NEURONTIN100 MG PO; +NITROGLYCERIN0.4 MG SL; +NORVASC5 MG PO; +OXYBUTYNIN CHLO10 MG PO; +PRAVASTATIN SOD40 MG PO; +TOLTERODINE TART4 MG PO; +TROSPIUM CHLORI60 MG PO; +VITAMIN B-121000 MC3 PO
--- OUTSIDE RECORDS SUMMARY | 2019-02-07 08:42 | XMS ---
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 Jose Angel VISIT COUNT (12 MO.) [address] [place] [address] TOTAL 3 NOTE: Visits indicate total known visits. 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
== END 2019-02-07 10:00 | disposition home or self-care (01) ==
LOC: ED 08:40
PROC: 4A0D7LZ Measurement of Urinary Volume, Via Natural or Artificial Opening (ICD-10-PCS; principal; 2019-02-07)
DX: T83.031A Leakage of indwelling urethral catheter, initial encounter (principal); N48.1 Balanitis; E78.5 Hyperlipidemia, unspecified; E11.9 Type 2 diabetes mellitus without complications; I10 Essential (primary) hypertension; I25.10 Atherosclerotic heart disease of native coronary artery without angina pectoris; K21.9 Gastro-esophageal reflux disease without esophagitis; Z85.46 Personal history of malignant neoplasm of prostate; E66.9 Obesity, unspecified; Z95.1 Presence of aortocoronary bypass graft; Z90.49 Acquired absence of other specified parts of digestive tract; Z88.8 Allergy status to other drugs, medicaments and biological substances; Z79.899 Other long term (current) drug therapy
CPT/HCPCS: 51798; 99283-25

== ENCOUNTER 2019-02-07 12:38 | Emergency (ER) | payer MEDICARE, OTHER ==
[~2019-02-07] VITALS: Ht 172.7 cm; Wt 115.7 kg
--- OUTSIDE RECORDS SUMMARY | ~2019-02-07 | XMS | Encounter Summary ---
Demographics + + + | Address | [address] | | | [place] [address] | + + + | Home Phone | | + + + | Preferred Language | Unknown | + + + | Marital Status | | + + + | Restorationism Affiliation | Unknown | + + + | Race | Unknown | + + + | Ethnic Group | Unknown | + + + Author + + + | Author | [facility] | | | and Rezaana | + + + | Organization | [facility] | | | and Rezaana | + + + | Address | Unknown | + + + | Phone | Unavailable | + + + Support + + +---------+ + | Name | Relationship | Address | Phone | + + +---------+ + | Salas Martinez | ECON | Unknown | | + + +---------+ + Care Team Providers + +------+ + | Care Supervisor Of Operations Name | Role | Phone | + +------+ + | Angelito Maxwell | PCP | | | MD | | | + +------+ + Reason for Referral Evaluate & Treat (Routine) + + + + + + + | Status | Reason | Specialty | Diagnoses / | Referred By | Referred To | | | | | Procedures | Contact | Contact | + + + + + + + | Authorized | Specialty | Neuropsycholo | Diagnoses | Juan | Rojas Torres | | | Services | gy | Lumbar | KEVIN Garcia | Marcel, PhD [address] | | | Required | | foraminal | [address] | [place] | | | | | stenosis | [address] | [place] | | | | | Lumbar | [address] | [address] | | | | | stenosis | [place], | [facility] [place] | | | | | with | [place] [address] | [address] Phone: | | | | | neurogenic | Phone: | [phone] | | | | | claudication | [phone] | Fax: | | | | | Lumbar | Fax: | [phone] | | | | | radiculopath | [phone] | | | | | | y | | | + + + + + + + Evaluate & Treat (Routine) + + + + + + + | Status | Reason | Specialty | Diagnoses / | Referred By | Referred To | | | | | Procedures | Contact | Contact | + + + + + + + | Authorized | Specialty | Neurosurgery | Diagnoses | Juan, | Tao, | | | Services | | Lumbar | KEVIN Garcia | Tyson E, MD | | | Required | | foraminal | [address] | | | | | stenosis | [address] | [place] | | | | | Lumbar | [address] | [address] | | | | | stenosis | [place], | [place], [place] | | | | | with | [place] [address] | [address] Phone: | | | | | neurogenic | Phone: | [phone] | | | | | claudication | [phone] | Fax: | | | | | Lumbar | Fax: | [phone] | | | | | radiculopath | [phone] | | | | | | y | | | + + + + + + + Reason for Visit + + + | Reason | Comments | + + + | Follow-up | Injection: bilateral L5-S1 TFESI 11/25/18 | + + + Encounter Details +--------+---------+ + + + | Date | Type | Department | Care Team | Description | +--------+---------+ + + + | 02/04/ | Office | [facility] | Jose Martinez, | Lumbar radiculopathy | | 2019 | Visit | PHYSIATRY [address] | PA-C [address] | (Primary Dx); | | | | [place], | [address] [place] | Lumbar foraminal | | | | [place] [address] | [place] [address] | stenosis; Lumbar | | | | [phone] | [phone] | stenosis with | | | | | | neurogenic | | | | | | claudication | +--------+---------+ + + + Social History + + + +--------+ + | Tobacco Use | Types | Packs/Day | Years | Date | | | | | Used | | + + + +--------+ + | Former Smoker | Cigarettes | 1 | 5 | 02/26/1953 - | | | | | | 02/26/1958 | + + + +--------+ + + +---+---+---+ | Smokeless Tobacco: | | | | | Never Used | | | | + +---+---+---+ + + +---------+ + | Alcohol Use | Drinks/We | oz/Week | Comments | | | ek | | | + + +---------+ + | Yes | | | Social, Frequently (more than twice a week) | + + +---------+ + + + + | Sex Assigned at | Date Recorded | | | | + + + | Not on file | | + + + + + + + | Job Start Date | Occupation | Industry | + + + + | Not on file | Not on file | Not on file | + + + + + + + + | Travel History | Travel Start | Travel End | + + + + + + | No recent travel history available. | + + documented as of this encounter Last Filed Vital Signs + + + + | Vital Sign | Reading | Time Taken | + + + + | Blood Pressure | 177/75 | 02/04/20191033 PDT | + + + + | Pulse | 67 | 02/04/20194 PDT | + + + + | Temperature | - | - | + + + + | Respiratory Rate | - | - | + + + + | Oxygen Saturation | - | - | + + + + | Inhaled Oxygen | - | - | | Concentration | | | + + + + | Weight | 117.9 kg (260 lb) | 02/04/2019 1034 PDT | + + + + | Height | 172.7 cm (5' 8") | 02/04/2019 1034 PDT | + + + + | Body Mass Index | 39.53 | 02/04/2019 1034 PDT | + + + + documented in this encounter Patient Instructions Patient Instructions Jose Martinez PA-C - 02/04/2019 10:40 PDTRepeat injections ordered to day. We'll call you once approved by insurance for scheduling. DISCONTINUE ASPIRIN 7 DAYS BEFORE ANY FUTURE INJECTIONS. Follow-up at the hospital thirty minutes before your scheduled procedure to allow for time to check in. You may eat and drink as usual on the day of the procedure. If you are scheduled for an epidural injection do not take any blood thinning medications f or at least 5-7 days prior to your procedure unless you have been instructed by another phys ician not to discontinue blood thinning medications. If you are having a procedure other than an epidural injection (i.e. facet injection, media l branch block, SI joint injection or other joint injection) it is not absolutely necessary to discontinue blood thinning medications but doing so will decrease the risk of bruising or bleeding. If you have had a prior stroke, DVT or PE or if you are taking blood thinning medication be cause you have atrial fibrillation, a prosthetic cardiac valve replacement or heart stenting do not stop taking your blood thinning medications unless you have permission from your car diologist or primary care provider. All other medications should be taken as usual on the day of the procedure. Common blood thinning medications include: Aspirin (a baby aspirin is o.k.) Ibuprofen (Advil or Motrin) Naproxen (Aleve) Nabumetone (Relafen) Clopidogrel (Plavix) Dipyridamole/ASA (Aggrenox) Warfarin (Coumadin) Dabigatran (Pradaxa) Rivaroxaban (Xarelto) There are many others. If you have questions about your medications and whether or not you should stop any medications please contact our office. If you are having an epidural injection or if you take any medication for relaxation/sedati on on the day of the procedure you must provide a tow truck driver to take you home. For all procedur es it is recommended that someone else drive you home. Possible Causes of Low Back or Leg Pain BIG: The symptoms in your back or leg may be due to pressure on a nerve. This pressure may be caused by a damaged disk or by abnormal bone growth. Either way, you may feel pain, burni ng, tingling, or numbness. If you have pressure on a nerve that connects to the sciatic nerv e, pain may shoot down your leg. Pressure from the disk Constant wear and tear can weaken a disk over time and cause back pain. The disk can then b e damaged by a sudden movement or injury. If its soft center starts to bulge, the disk may p ress on a nerve. Or the outside of the disk may tear, and the soft center may squeeze throug h and pinch a nerve. Pressure from bone As a disk wears out, the vertebrae right above and below the disk start to touch. This can put pressure on a nerve. Often, abnormal bone (called bone spurs) grows where the vertebrae rub against each other. This can cause the foramen or the spinal canal to narrow (called severiano nosis) and press against a nerve. Date Last Reviewed: 12/27/201719998032-0941 [employer]. [address] [place] [address], [place] [address]. All [facility] reserved. This information is not intended as a substitute for professional medical care. Always follow your healthcare professional's instructions. documented in this encounter Progress Notes Jose Martinez PA-C - 02/04/2019 1040 PDTFormatting of this note might be different from th e original. oJse Martinez PA-C [address] [facility], [address] [place] [address] FAX: PHYSICAL MEDICINE AND REHABILITATION H&P CHIEF COMPLAINT: Chief Complaint Patient presents with Follow-up Injection: bilateral L5-S1 TFESI 11/25/18 HISTORY OF PRESENT ILLNESS: The patient is a 83 y.o. male being seen today for follow up a fter bilateral L5-S1 TFESI. Patient reports approximately 85% relief since receiving injecti on on date: 11/25/18. Patient reports that since injection they have improved functionality. Patient reports that since injection they have decreased use of medication for pain/radicula r symptoms. Patient recently begin using topical diclofenac with great relief. Today he is i nterested in pursuing the SCS trial. He reports that the injections provided significant relief for the first 2 months or so but then began to wear off shortly after. The patient reports that the pain started with no kno wn incident or trauma. The symptoms have been gradually worsening. His last round of inje ctions were to bilateral SI joints for which he reported significant relief however it was a lso lasting for only 1-2 months. Today patient reports that low back pain is beginning to return, he also complains of left hip pain in which he has to lift his left leg in order to get in the car. His third compla int is of left shoulder pain that has been present for several years. He rates the back/hip pain as moderate to severe depending on activity. The symptoms are d aily, continuous. He describes the pain as aching, dull and sharp. He rates the pain a con stant 5 out of 10 with worst pain level being 8 out of 10, usually after walking or sitting for periods of time. He states he is unable to walk more than 1 city block before hip and lo w back pain is so severe he must take a break. The patient does not describe leg pain but he does describe a heavy sensation and fatigue i n his legs that limits his ability to walk. He also reports a history of restless leg syndr ome. The patient does not report numbness. The patient reports that when he is walking ar ound a grocery store he leans forward on the shopping cart which does help relieve back pain . He recently saw a new doctor who attributed his diarrhea incontinence to his diet and lack of gallbladder and since he has changed his diet his diarrhea incontinence has decreased in frequency. His urologist attributes his urinary incontinence to his prior prostate radiatio n. His symptoms improve with changing position, specifically relieved with back extension stre tches. He does also report that 1000mg of Tylenol, twice a day helps with the pain. His symptoms worsen with standing, sitting and walking. He has tried PT, massage, TENS and heat. He has been advised not to take NSAID's due to he art problems. The patient just completed physical therapy reporting that he went 2-3 times p er week for two months. The physical therapy just ended on February 272017. He continues to do a home exercise program daily which is helpful. He describes left shoulder pain as a chronic issue that has been around for several years. He also describes that it is not so much painful but his range of motion is inhibited signi ficantly. He reports he is only able to lift his arm to approximately 80-90. PAST MEDICAL HISTORY: Past Medical History: Diagnosis Date Anxiety Arthritis Cellulitis of right lower leg DDD (degenerative disc disease), lumbar 03/18/2018 Dependent edema Due to inactivity Depression Diabetes ([facility]) Gastric reflux Heart disease Hereditary and idiopathic neuropathy, unspecified High cholesterol History of blood transfusion History of fracture Pars interarticularis History of ulceration Ulcer Hypertension Left atrial enlargement Lumbago Lumbar spondylosis Murmur Echo 09/2017 Neuropathy Feet Obstructive sleep apnea (adult) (pediatric) Other spondylosis, lumbar region Peripheral neuropathy Pneumonia Prostate cancer ([facility]) 1994 Radiation: 10/1995-12/1995, [facility] Right atrial enlargement Type 2 diabetes mellitus without complication ([facility]) PAST SURGICAL HISTORY: Past Surgical History: Procedure Laterality Date CARPAL TUNNEL RELEASE Right 12/17/2017 CATARACT REMOVAL Bilateral CORONARY ARTERY BYPASS GRAFT 07/31/2004 [facility] CORONARY ARTERY BYPASS GRAFT 07/09/2012 [facility] GALLBLADDER SURGERY 04/19/2007 Dr. Vinson, [facility] PROSTATE SURGERY 1994 Prostate Cancer CURRENT MEDICATIONS: Current Outpatient Medications Medication Sig Dispense Refill acetaminophen (TYLENOL) 500 mg tablet Take 1,000 mg by mouth as needed for Pain. amLODIPine (NORVASC) 5 mg tablet Take 5 mg by mouth Daily. aspirin 325 MG EC tablet Take 325 mg by mouth nightly. bismuth subsalicylate (KAOPECTATE) 262 mg/15 mL suspension Take 15 mLs by mouth every 6 hours as needed for Indigestion. bismuth subsalicylate (PEPTO BISMOL) 262 MG TABS Take 262 mg by mouth Daily as needed. colestipol (COLESTID) 5 g packet Take 5 g by mouth Daily. 0 cyanocobalamin (VITAMIN B-12) 1000 MCG tablet Take 1,000 mcg by mouth every morning. doxycycline (VIBRAMYCIN) 100 mg tablet Take 50 mg by mouth every morning. FLUoxetine (PROZAC) 20 mg capsule Take 20 mg by mouth Daily. gabapentin (NEURONTIN) 100 mg capsule Take 200 mg by mouth nightly. glimepiride (AMARYL) 4 mg tablet Take 8 mg by mouth every morning. hydroCHLOROthiazide 25 mg tablet Take 25 mg by mouth Daily. loperamide (IMODIUM) 2 mg capsule Take 2 mg by mouth as needed for Diarrhea. losartan (COZAAR) 100 MG tablet Take 100 mg by mouth nightly. metoprolol tartrate (LOPRESSOR) 25 mg tablet Take 25 mg by mouth. Patient taking 25 mg qam and 50 mg qpm nitroglycerin (NITROSTAT) 0.4 mg SL tablet nitroglycerin 0.4 mg sublingual tablet omeprazole (PRILOSEC) 40 MG capsule Take 40 mg by mouth in the morning and in the eveni ng. rOPINIRole (REQUIP) 3 MG tablet Take 6 mg by mouth 3 times daily. tamsulosin (FLOMAX) 0.4 mg CAPS Take 0.4 mg by mouth nightly. tolterodine (DETROL LA) 4 MG 24 hr capsule Take 4 mg by mouth every morning. 0 Trospium Chloride 60 MG CP24 Take 60 mg by mouth every morning. No current facility-administered medications for this visit. ALLERGIES: Allergies Allergen Reactions Atorvastatin Other (See Comments) Myalgia Ibuprofen Other (See Comments) Told by physician not to take this medication due to his heart condition. Lisinopril Other (See Comments) Cough Metformin Diarrhea and Nausea And Vomiting SOCIAL HISTORY: The patient reports that he quit smoking about 60 years ago. His smoking use included ciga rettes. He started smoking about 65 years ago. He has a 5.00 pack-year smoking history. He h as never used smokeless tobacco. He reports that he drinks alcohol. He reports that he does not use drugs. FAMILY HISTORY: Family History Problem Relation Age of Onset Breast cancer Mother Cancer Mother Heart disease Mother Stroke Father 77 CVA No known problems Brother No known problems Maternal Grandmother No known problems Maternal Grandfather No known problems Paternal Grandmother No known problems Paternal Grandfather No known problems Brother Seizures Daughter 44 Grand mal seizure Early Daughter 44 Grand mal seizure No known problems Daughter No known problems Son ROS GENERALLY: No fever, no night sweats, no anemia, no fatigue, no recent profound weight ch anges. EYES: + eye problems, + use of corrective lenses, no eye injury, no double vision, no blin dness. EARS, NOSE, AND THROAT: No changes in taste or smell, + hearing difficulty, + ringing in t he ears, no ear drainage, no dizziness, no voice changes, no difficulty swallowing, no signi ficant snoring, no sleep apnea, no sinus problems, + major dental work. NEUROLOGICALLY:The patient has no numbness/pain of arms, + numbness/pain of legs, no awake with numbness/pain, no weakness, no muscle aching, no coordination difficulty, no change in walk, no head injury, no neck injury, no back injury, + pain in neck, + pain in back, no str amanda, no fainting spells, no loss of consciousness, no tremor/shaking, no seizures, no headac hes, no migraine, + memory loss, no speech difficulty, no confusion and no numbness of face. PSYCHIATRIC: + depression, + sleep disorders, + anxiety, no bipolar disorder, no psychotic episodes. CARDIOVASCULAR: No heart attacks, + heart murmur, no heart fluttering, no chest pain, + an kle swelling. LUNG DISEASE: + shortness of breath, no cough, no tuberculosis, no bloody cough, no asthm a, no emphysema/COPD. GASTROINTESTINAL: No bowel disease, + nausea or vomiting, no rectal bleeding, no constipat ion, no stool incontinence, no liver disease, no gallbladder disease, no abdominal pain, no ulcers. KIDNEY DISEASE: + urinary frequency, no painful or difficult urination, no incontinence. ENDOCRINE: + diabetes, no thyroid disease, no osteopenia or osteoporosis, no breast draina ge. SKIN: No breast lumps, no skin changes, no rashes, no itches. HEMATOLOGIC/LYMPHATIC: No enlarged lymph nodes, no easy or unusual bleeding, + personal hi story of cancer. RHEUMATOLOGIC: + joint arthritis, no rheumatoid arthritis. PHYSICAL EXAMINATION: Height 1.727 m (5' 8"), weight 117.9 kg (260 lb). Body mass index is 39.53 kg/m. GENERAL: The patient is well developed and well nourished. He does appear uncomfortable wh en seated. HEENT: HEAD/FACE: EYES: Normocephalic and atraumatic. There are no areas of recent trauma. Normal sclerae without icterus. SKIN Limited skin exam shows no significant rashes or lesions. There are not scars in the lumbar region. He does have long scars on the bilateral lower legs from prior triple bypass surgery. CHEST: The patient is in no acute respiratory distress with unlabored respirations. HEART: There is lower extremity edema. ABDOMEN: The patient is overweight. NEUROLOGIC: The patient is awake, alert, and oriented to time, place, person. He follows simple and complex commands. His speech is fluent. He comprehends speech well. He has no apparent deficits with short or terminal supervisor memory. He has appropriate fund of knowledge Cranial nerves 2-12 appear grossly intact. Sensory exam does not show diminished sensation to light touch in the upper and lower extre mities. REFLEX: RIGHT LEFT PATELLAR 1+ 1+ ACHILLES 0 0 PLANTAR Downgoing Downgoing MUSCULOSKELETAL There is no major palpable deformity of the spine. Straight leg raise and slump-sit are negative. Jonathan's maneuver and impingement testing were positive for groin pain on the LEFT. There was no tenderness to palpation over the gr eater trochanters or sacral sulci. The patient localized the majority of the pain to the L4 -L5 and L5-S1 region L>R. Facet loading was negative. Strength testing of the lower extr emities showed: Left lower extremity 4/5, right 4+/5. The patient was able to heel and toe w alk without definite weakness but he has poor balance. There was no redness, effusion, warm th or joint line tenderness in the knees or ankles. Mild discomfort with forward flexion and improvement with lumbar extension. Left Hip decreased ROM with internal/external rotation. Left hip flexion 4-/5 strength. RADIOGRAPHIC REVIEW: The patient's imaging was reviewed personally by me in detail with the patient during today 's visit. The xray of the lumbar spine from 12/10/2017 shows DDD, facet arthritis. Lumbar MRI from 04/08/18 shows multilevel degenerative changes and moderate central canals s tenosis from L2-S1, most severe at L4-L5. There is prominent bilateral neural foraminal can al stenosis throughout the lumbar spine from L1-S1. Facet hypertrophy was noted from L1-L5. IMPRESSION: Encounter Diagnoses Name Primary? 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 Patient's description of symptom s, physical exam, and imaging suggest this diagnosis at this time. 2) I counseled patient on treatment options which included conservative self management usi ng OTC NSAIDs/Ice and heat packs, physical therapy, prescription medications, epidural stero id injection, as well as possible surgical intervention. 3) Imaging: As descibed above in radiology review. 4) The patient has had significant conservative care including medications (NSAIDS and narc otics), PT (multiple sessions over the years) and respiratory care assistant. Unfortunately Feliz Martinez continues to have significant discomfort. It appears to me that the pain is pr imarily coming from bilateral L5-S1 region. I did feel that Feliz Martinez would be a good candidate for interventional proce dures and I offered a repeat bilateral L5-S1 TF KLAUS to be done. spinal cord stimulator discussed great detail today. Referral to neurosurgeon was placed to discuss surgical option. Referral to Dr Torres for neuropsych eval prior to SCS trial placed today 5) Patient will follow up with me 3 weeks post injection to discuss any imaging and/or prog ress with today's treatment plan. I spent 30 minutes in visit with Feliz Martinez today with the majority of time spen t counselling the patient on his diagnosis, options for his care, and coordinating his care. ELECTRONICALLY EDITED AND SIGNED BY: Jose Martinez PA-C, 02/04/2019 documented in this encou nter Plan of Treatment +--------+ + + + + | Date | Type | Specialty | Care Team | Description | +--------+ + + + + | 03/05/ | Appointment | Radiology | Jose Martinez, | | | 2018 | | | KEVIN [address] | | | | | | [address] [facility] | | | | | | [place] [address] | | | | | | [phone] | | | | | | | | | | | | [employer] | | +--------+ + + + + + +--------+ + + | Name | Priori | Associated Diagnoses | Order Schedule | | | ty | | | + +--------+ + + | FL KLAUS Lumbar Transforaminal | Routin | Lumbar foraminal | Expected: | | | e | stenosis Lumbar | 02/04/2019, Expires: | | | | stenosis with | 02/05/2020 | | | | neurogenic | | | | | claudication Lumbar | | | | | radiculopathy | | + +--------+ + + + +--------+ + + | Name | Priori | Associated Diagnoses | Order Schedule | | | ty | | | + +--------+ + + | Dr. Auguste_Neurosurgery [facility] | Routin | Lumbar foraminal | Ordered: 02/04/2019 | | | e | stenosis Lumbar | | | | | stenosis with | | | | | neurogenic | | | | | claudication Lumbar | | | | | radiculopathy | | + +--------+ + + | PET[facility]_ Dr. Torres | Routin | Lumbar foraminal | 1 Occurrences | | | e | stenosis Lumbar | starting 02/04/2019 | | | | stenosis with | until 02/05/2020 | | | | neurogenic | | | | | claudication Lumbar | | | | | radiculopathy | | + +--------+ + + documented as of this encounter Visit Diagnoses + + | Diagnosis | + + | Lumbar radiculopathy - Primary Thoracic or lumbosacral neuritis or radiculitis, | | unspecified | + + | Lumbar foraminal stenosis Spinal stenosis, lumbar region, without neurogenic | | claudication | + + | Lumbar stenosis with neurogenic claudication Spinal stenosis, lumbar region, with | | neurogenic claudication | + + documented in this encounter
--- OUTSIDE RECORDS SUMMARY | ~2019-02-07 | XMS | Encounter Summary ---
Demographics + + + | Address | [address] | | | [place] [address] | + + + | Home Phone | | + + + | Preferred Language | Unknown | + + + | Marital Status | | + + + | Advent Affiliation | Unknown | + + + | Race | Unknown | + + + | Ethnic Group | Unknown | + + + Author + + + | Author | [facility] | + + + | Organization | [facility] | + + + | Address | Unknown | + + + | Phone | Unavailable | + + + Support + + +---------+ + | Name | Relationship | Address | Phone | + + +---------+ + | Salas Martinez | ECON | Unknown | | + + +---------+ + Care Team Providers + +------+ + | Care Buyer Agent Name | Role | Phone | + +------+ + | Angelito Maxwell MD | PCP | | + +------+ + Reason for Visit + + + | Reason | Comments | + + + | Labs Only | | + + + Encounter Details +--------+ + + + + | Date | Type | Department | Care Team | Description | +--------+ + + + + | 01/16/ | Documentati | [facility] | Erna, | Labs Only | | 2019 | on Only | Cardiology [facility] | [facility] [place] | | | | | [address] | | | | | | [place] | | | | | | [address] | | | | | | [phone] | | | +--------+ + + + [...] | | | | | | [place] [address] | | | | | | [phone] | | | | | | | | +--------+---------+ + + + as of this encounter Visit Diagnoses Not on filein this encounter"
--- OUTSIDE RECORDS SUMMARY | ~2019-02-07 | XMS | Clinical Summary ---
Demographics + + + | Address | [address] | | | [place] [address] | + + + | Home Phone | | + + + | Preferred Language | Unknown | + + + | Marital Status | | + + + | Gnosticism Affiliation | Unknown | + + + | Race | Unknown | + + + | Ethnic Group | Unknown | + + + Author + + + | Author | [facility] | | | and Rezaana | + + + | Organization | [facility] | | | and Rezaana [...] Team Providers + +------+ + | Care Vallez Filter Operator Name | Role | Phone | + +------+ + | Angelito Maxwell | PP | | | MD | | | + +------+ + Allergies + + + + + + | Active Allergy | Reactions | Severity | Noted | Comments | | | | | Date | | + + + + + + | Atorvastatin | Other (See Comments) | Medium | 07/05/20 | Myalgia | | | | | 12 | | + + + + + + | Ibuprofen | Other (See Comments) | Medium | 01/16/20 | Told by physician | | | | | 18 | not to take this | | | | | | medication due to | | | | | | his heart condition. | + + + + + + | Lisinopril | Other (See Comments) | Low | 07/05/20 | Cough | | | | | 12 | | + + + + + + | Metformin | Diarrhea, Nausea And | Low | 07/05/20 | | | | Vomiting | | 12 | | + + + + + + Medications + + + +---------+------+------+-------+ | Medication | Sig | Dispensed | Refills | Star | End | Statu | | | | | | t | Date | s | | | | | | Date | | | + + + +---------+------+------+-------+ | tamsulosin | Take 0.4 mg by mouth | | 0 | | | Activ | | (FLOMAX) 0.4 mg CAPS | nightly. | | | | | e | + + + +---------+------+------+-------+ | cyanocobalamin | Take 1,000 mcg by | | 0 | | | Activ | | (VITAMIN B-12) 1000 | mouth every morning. | | | | | e | | MCG tablet | | | | | | | + + + +---------+------+------+-------+ | rOPINIRole | Take 6 mg by mouth 3 | | 0 | | | Activ | | (REQUIP) 3 MG tablet | times daily. | | | | | e | + + + +---------+------+------+-------+ | losartan (COZAAR) | Take 100 mg by mouth | | 0 | | | Activ | | 100 MG tablet | nightly. | | | | | e | + + + +---------+------+------+-------+ | doxycycline | Take 50 mg by mouth | | 0 | | | Activ | | (VIBRAMYCIN) 100 mg | every morning. | | | | | e | | tablet | | | | | | | + + + +---------+------+------+-------+ | omeprazole | Take 40 mg by mouth | | 0 | | | Activ | | (PRILOSEC) 40 MG | in the morning and | | | | | e | | capsule | in the evening. | | | | | | + + + +---------+------+------+-------+ | metoprolol | Take 25 mg by mouth. | | 0 | | | Activ | | tartrate (LOPRESSOR) | Patient taking 25 | | | | | e | | 25 mg tablet | mg qam and 50 mg qpm | | | | | | + + + +---------+------+------+-------+ | glimepiride | Take 8 mg by mouth | | 0 | | | Activ | | (AMARYL) 4 mg tablet | every morning. | | | | | e | + + + +---------+------+------+-------+ | nitroglycerin | nitroglycerin 0.4 mg | | 0 | | | Activ | | (NITROSTAT) 0.4 mg | sublingual tablet | | | | | e | | SL tablet | | | | | | | + + + +---------+------+------+-------+ | bismuth | Take 262 mg by mouth | | 0 | | | Activ | | subsalicylate (PEPTO | Daily as needed. | | | | | e | | BISMOL) 262 MG TABS | | | | | | | + + + +---------+------+------+-------+ | acetaminophen | Take 1,000 mg by | | 0 | | | Activ | | (TYLENOL) 500 mg | mouth as needed for | | | | | e | | tablet | Pain. | | | | | | + + + +---------+------+------+-------+ | aspirin 325 MG EC | Take 325 mg by mouth | | 0 | | | Activ | | tablet | nightly. | | | | | e | + + + +---------+------+------+-------+ | bismuth | Take 15 mLs by mouth | | 0 | | | Activ | | subsalicylate | every 6 hours as | | | | | e | | (KAOPECTATE) 262 | needed for | | | | | | | mg/15 mL suspension | Indigestion. | | | | | | + + + +---------+------+------+-------+ | | Take 25 mg by mouth | | 0 | 08/2 | | Activ | | hydroCHLOROthiazide | Daily. | | | 8/20 | | e | | 25 mg tablet | | | | 18 | | | + + + +---------+------+------+-------+ | gabapentin | Take 200 mg by mouth | | 0 | | | Activ | | (NEURONTIN) 100 mg | nightly. | | | | | e | | capsule | | | | | | | + + + +---------+------+------+-------+ | loperamide | Take 2 mg by mouth | | 0 | | | Activ | | (IMODIUM) 2 mg | as needed for | | | | | e | | capsule | Diarrhea. | | | | | | + + + +---------+------+------+-------+ | colestipol | Take 5 g by mouth | | 0 | 12/2 | | Activ | | (COLESTID) 5 g | Daily. | | | 8/20 | | e | | packet | | | | 18 | | | + + + +---------+------+------+-------+ | tolterodine | Take 4 mg by mouth | | 0 | 01/2 | | Activ | | (DETROL LA) 4 MG 24 | every morning. | | | 220 | | e | | hr capsule | | | | 19 | | | + + + +---------+------+------+-------+ | doxazosin | Take 4 mg by mouth | | 1 | 03/1 | | Activ | | (CARDURA) 4 mg | nightly. | | | 220 | | e | | tablet | | | | 19 | | | + + + +---------+------+------+-------+ | pravastatin | Take 40 mg by mouth | | 1 | 03/1 | | Activ | | (PRAVACHOL) 40 MG | nightly. | | | 220 | | e | | tablet | | | | 19 | | | + + + +---------+------+------+-------+ | diclofenac | Apply 2 g topically | | 0 | 03/2 | | Activ | | (VOLTAREN) 1% GEL | 2 times daily. | | | 06/17 | | e | | | | | | 19 | | | + + + +---------+------+------+-------+ | FLUoxetine | Take 20 mg by mouth | | 0 | 08/2 | 04/0 | Disco | | (PROZAC) 20 mg | Daily. | | | 9/20 | 9/20 | ntinu | | capsule | | | | 18 | 19 | ed | + + + +---------+------+------+-------+ | amLODIPine | Take 5 mg by mouth | | 0 | | 04/0 | Disco | | (NORVASC) 5 mg | Daily. | | | | 9/20 | ntinu | | tablet | | | | | 19 | ed | + + + +---------+------+------+-------+ | Trospium Chloride | Take 60 mg by mouth | | 0 | | 04/0 | Disco | | 60 MG CP24 | every morning. | | | | 9/20 | ntinu | | | | | | | 19 | ed | + + + +---------+------+------+-------+ Active Problems + + + | Problem | Noted Date | + + + | Lumbar radiculopathy | 11/25/2018 | + + + | Sensorineural hearing loss, bilateral | 07/09/2018 | + + + + + | Overview: No comments entered for problem. | + + + + + | History of surgical procedure | 07/09/2018 | + + + + + | Overview: Sep 17, 2017Entered By: JUANCARLOS HILL LComment: | | 1995 XRT 3 months [facility] cancer [facility] [place] [facility] | | 2017Entered By: JUANCARLOS HILL LComment: 2008 [facility] | | CholycystectomyNov 2016Entered By: JUANCARLOS HILL LComment: | | 2003 CABG, 2011 CABG | |Entered By: JUANCARLOS HILL L | |Comment: 2003 CABG, 2011 CABG | + + + + + | Lumbar stenosis with neurogenic claudication | 04/10/2018 | + + + | Lumbar foraminal stenosis | 04/10/2018 | + + + | Carcinoma of prostate | 04/10/2018 | + + + + + | Overview: Sep 17, 2017 | | Entered By: JUANCARLOS HILL L | | Comment: urinary incontinence | + + + + + | Chronic diarrhea | 04/10/2018 | + + + + + | Overview: No comments entered for problem. | + + + + + | Coronary arteriosclerosis | 04/10/2018 | + + + + + | Overview: Sep 28, 2017Entered By: JUANCARLOS HILL LComment: | | 09/25/2016 - letter from [facility]; poss exposure NTM in bypass Nov | 2016Entered By: JUANCARLOS HILL LComment: 2003 CABGx3; 2011 | | second CABG x3 [facility] | |Comment: 2003 CABGx3; 2011 second CABG x3 [facility] system | + + + + + | Coronary atherosclerosis | 04/10/2018 | + + + + + | Overview: Overview: | | Multivessel, with 2 bypasses and 3 coronary stents | + + + + + | Gastroesophageal reflux disease | 04/10/2018 | + + + + + | Overview: No comments entered for problem. | + + + + + | Restless legs | 04/10/2018 | + + + + + | Overview: No comments entered for problem. | + + + + + | Chronic bilateral low back pain - he denies significant leg pain | 03/18/2018 | | but does have weakness, inability to walk a distance and also has | | | bowel/bladder incontinence | | + + + | Degeneration of intervertebral disc | 03/18/2018 | + + + | Right wrist pain | 12/11/2017 | + + + | Chest pain | 07/05/2012 | + + + | DM type 2 (diabetes mellitus, type 2) | 07/05/2012 | + + + | Morbid obesity | 07/05/2012 | + + + | NSTEMI (non-ST elevated myocardial infarction) | 07/05/2012 | + + + + + | Overview: Overview: | | NSTEMI | + + + + + | HTN (hypertension) | 07/05/2012 | + + + | Dyslipidemia | 07/05/2012 | + + + Encounters +--------+ + + + + | Date | Type | Specialty | Care Team | Description | +--------+ + + + + | 02/04/ | Office | | Jose Martinez, | Lumbar radiculopathy | | 2019 | Visit | | PA-C | (Primary Dx); | | | | | | Lumbar foraminal | | | | | | stenosis; Lumbar | | | | | | stenosis with | | | | | | neurogenic | | | | | | claudication | +--------+ + + + + | 11/25/ | Hospital | | Jose Martinez, | Lumbar radiculopathy | | 2018 | Encounter | | [facility], | | | | | | [facility] | | +--------+ + + + + | 11/25/ | Office | | Jose Martinez, | Lumbar foraminal | | 2018 | Visit | | [facility] | stenosis (Primary | | | | | | Dx); Lumbar stenosis | | | | | | with neurogenic | | | | | | claudication; Lumbar | | | | | | radiculopathy | +--------+ + + + + from Last 3 Months Family History + + +------+ + | Medical History | Relation | Name | Comments | + + +------+ + | No known problems | Brother | GENE | | + + +------+ + | No known problems | Brother | DENISE | | + + +------+ + | Early | Daughter | | Grand mal seizure | + + +------+ + | Seizures | Daughter | | Grand mal seizure | + + +------+ + | No known problems | Daughter | | | + + +------+ + | Stroke | Father | | CVA | + + +------+ + | No known problems | Maternal | | | | | Grandfath | | | | | er | | | + + +------+ + | No known problems | Maternal | | | | | Grandmoth | | | | | er | | | + + +------+ + | Breast cancer | Mother | | | + + +------+ + | Cancer | Mother | | | + + +------+ + | Heart disease | Mother | | | + + +------+ + | No known problems | Paternal | | | | | Grandfath | | | | | er | | | + + +------+ + | No known problems | Paternal | | | | | Grandmoth | | | | | er | | | + + +------+ + | No known problems | Son | | | + + +------+ + + +------+ + + | Relation | Name | Status | Comments | + +------+ + + | Brother | GENE | | | | | | (Age | | | | | 86) | | + +------+ + + | Brother | DENISE | Alive | | + +------+ + + | Daughter | | | | | | | (Age | | | | | 44) | | + +------+ + + | Daughter | | Alive | | + +------+ + + | Father | | | CVA | | | | (Age | | | | | 77) | | + +------+ + + | Maternal Grandfather | | | | + +------+ + + | Maternal Grandmother | | | | + +------+ + + | Mother | | | Cancer, Heart | | | | (Age | | | | | 79) | | + +------+ + + | Paternal Grandfather | | | | + +------+ + + | Paternal Grandmother | | | | + +------+ + + | Son | | Alive | | + +------+ + + Social History + + + [...] recent travel history available. | + + Last Filed Vital Signs + + + + | Vital Sign | Reading | Time Taken | + + + + | Blood Pressure | 177/75 | 02/04/2019 1034 PDT | + + + + | Pulse | 67 | 02/04/2019 1034 PDT | + + [...] Weight | 117.9 kg (260 lb) | 02/04/20191033 PDT | + + + + | Height | 172.7 cm (5' 8") | 02/04/20191033 PDT | + + + + | Body Mass Index | 39.53 | 02/04/20191033 PDT | + + + + Plan of Treatment +--------+ + + + + | Date | Type | Specialty | Care Team | Description | +--------+ + + + + | 03/05/ | Appointment | | Jose Martinez, | | | 2019 | | | [facility] [address] | | | | | | [address] [place] | | | | | | [place] [address] | | | | | | [phone] | | | | | | | | | | | | [facility] [facility] | | +--------+ + + + + + + + + + | Health Maintenance | Due Date | Last Done | Comments | + + + + + | Diabetic Eye Exam | | | | | | 3 | | | + + + + + | Diabetic Foot Exam | | | | | | 3 | | | + + + + + | Hemoglobin A1c | | | | | Screening | 3 | | | + + + + + | Vaccine: Zoster (1 | | | | | of 2) | 5 | | | + + + + + | Adult Annual | | | | | Wellness Visit | 5 | | | + + + + + | Vaccine: | | 02/17/2016, 01/13/1985 | | | Dtap/Tdap/Td (2 - | 6 | | | | Td) | | | | + + + + + | Vaccine: | Completed | 02/17/2016, 07/08/2012 | | | Pneumococcal 65+ | | | | | High/Highest Risk | | | | + + + + + | Vaccine: Influenza | Completed | 06/12/2018, 05/31/2017, | | | | | 05/29/2017, Additional history | | | | | exists | | + + + + + Procedures + +--------+ + + + | Procedure Name | Priori | Date/Time | Associated Diagnosis | Comments | | | ty | | | | + +--------+ + + + | FL EPIDURAL STEROID | Routin | 11/25/2018 | Lumbar | Results for this | | INJECTION LUMBAR | e | 12:58 PST | radiculopathy | procedure are in the | | TRANSFORAMINAL | | | | results section. | + +--------+ + + + from Last 3 Months Results FL KLAUS Lumbar Transforaminal (11/25/2018 12:58 PST) + + | Specimen | + + | | + + + + -+ | Narrative | Performed At | + + -+ | 11/25/2018 | [facility] | | Bilateral Transforaminal Epidural Steroid Injections Diagnosis: Lumbar | | | radiculopathy ICD-10 Code M54.16 Feliz Martinez presents to | | | the fluoroscopy suite for fluoroscopically-guided bilateral L5-S1 | | | transforaminal epidural steroid injections as part of conservative | | | management for chronic pain with lumbar radiculopathy and degenerative | | | disc disease. After informed consent was obtained, the patient lay in | | | the prone position on the fluoroscopy table. The areas were | | | identified under fluoroscopic guidance. The areas were prepped and | | | draped in sterile fashion. A 25-gauge, 1.5-inch needle was inserted | | | into each region and approximately 3 mL of buffered 1% lidocaine was | | | infused. Then, a 22-gauge spinal needle was inserted into the | | | posterior superior transforaminal space bilaterally and advanced into | | | the epidural space under fluoroscopic guidance. Confirmation into the | | | epidural space was obtained with infusion of approximately 1 mL of | | | Omnipaque contrast which showed epidural flow as well as nerve sheath | | | flow. Then, a combination of 2 mL of 1% lidocaine and 2 mL of 6 mg/mL | | | betamethasone was infused, divided between the two sides. The patient | | | tolerated the procedure well without complications. Pre- and | | | post-procedure blood pressures were stable. The patient was given | | | verbal as well as written follow-up instructions. Prior to the start | | | of the procedure, the following were performed and/or verified, | | | including correct patient identity, correct site/side marked and | | | visible, agreement on the procedure to be done, correct patient | | | positioning and an accurate procedure consent form. Any safety | | | precautions based on clinical history and/or medication use have been | | | addressed. I personally performed the procedure above. Estimated blood | | | loss: MinimalComplications: NoneFindings: As expectedAnesthesia: | | | Local 1% Lidocaine | | |visible, agreement on the procedure to be done, correct patient | | |positioning and an accurate procedure consent form. Any safety precautions | | |based on clinical history and/or medication use have been addressed. I | | |personally performed the procedure above. | | | | | |Estimated blood loss: Minimal | | |Complications: None | | |Findings: As expected | | |Anesthesia: Local 1% Lidocaine | | | | | | | | + + -+ + +---------+ + + | Performing | Address | City/State/Zipcode | Phone Number | | Organization | | | | + +---------+ + + | [facility] | | | | + +---------+ + + from Last 3 Months Insurance + +--------+ +--------+ + +--------+ | Payer | Benefi | Subscriber | Effect | Phone | Address | Type | | | t Plan | ID | go | | | | | | / | | Dates | | | | | | Group | | | | | | + +--------+ +--------+ + +--------+ | MEDICARE | MEDICA | [id number] | | [phone] | | Medica | | | RE | | 000-Pr | 5 | | re | | | PART A | | esent | | | | | | AND B | | | | | | + +--------+ +--------+ + +--------+ | MODA | MODA | [id number] | 10/29/19 | [phone] | [address] | Indemn | | | HEALTH | | 14-Pre | 9 | [phone] | ity | | | MDCR | | sent | | [place], | | | | [place] | | | | [place] [address] | | + +--------+ +--------+ + +--------+ + +--------+ +--------+ + + | Guarantor Name | Accoun | Relation to | Date | Phone | Billing Address | | | t Type | Patient | of | | | | | | | | | | + +--------+ +--------+ + + | Feliz Martinez | Person | Self | [birth year] | [address] | | [place] | al/Fam | | 1935 | [phone] | [address] [place] | | | [place] | | | [address] (Home) | [phone] | + +--------+ +--------+ + + Advance Directives Patient has advance care planning documents on file. For more information, please contact:[facility] [place] [address]
--- OUTSIDE RECORDS SUMMARY | ~2019-02-07 | XMS | Clinical Summary ---
Demographics + + + | Address | [address] | | | [place] [address] | + + + | Home Phone | | + + + | Preferred Language | Unknown | + + + | Marital Status | | + + + | Baptist Affiliation | Unknown | + + + | Race | Unknown | + + + | Ethnic Group | Unknown | + + + Author + + + | Author | [facility] | + + + | Organization | [facility] | + + + | Address | Unknown | + + + | Phone | Unavailable | + + + Support + + +---------+ + | Name | Relationship | Address | Phone | + + +---------+ + | Salas Martinez | ECON | Unknown | | + + +---------+ + Care Team Providers + +------+ + | Care Director Of First Impressions Name | Role | Phone | + [...] + | 01/16/ | Documentati | | Erna, | Labs Only | | 2019 | on Only | | BESSY Milligan | | +--------+ + + + + | 01/08/ | Documentati | | Nena Farias, | Other (Patient's | | 2019 | on Only | | [place] | blood sugar log | | | | | | [phone]) | +--------+ + + + + | 01/07/ | Office | | Henok Dumont, | Hypertension, | | 2018 | Visit | | MD | unspecified type | | | | | | (Primary Dx); | | | | | | Coronary artery | | | | | | disease involving | | | | | | [place] coronary | | | | | | artery of [place] | | | | | | heart with other | | | | | | form of angina | | | | | | pectoris ([facility]); S/P | | | | | | CABG x 3; S/P PTCA | | | | | | (percutaneous | | | | | | transluminal | | | | | | coronary | | | | | | angioplasty); NSTEMI | | | | | | (non-ST elevated | | | | | | myocardial | | | | | | infarction) ([facility]); | | | | | | Hyperlipidemia, [...] + + + + Plan of Treatment +--------+---------+ + + + | Date | Type | Specialty | Care Team | Description | +--------+---------+ + + + | 05/20/ | Office | | Henok Dumont, | | | 2018 | Visit | | MD [address] | | | | | | [place], | | | | | | [place] [address] | | | | | | [phone] | | | | | | | | +--------+---------+ + + + + + + + [...] + + + | Vaccine: Influenza | 09/01/201 | | | | (Season Ended) | [...] | | 2015 | 5 | | [id number]: Qty: 1 on | | | | | | /[id number] | | 07/09/2012 by Davi, | | | | | | 151 | | MD Lauren | | | [...] Ventricular Rate | 62 | BPM | [facility] | + + + + + | Atrial Rate | 62 | BPM | [facility] | + + + [...] + + + + | Calculated P Sherrill | 33 | degrees | [facility] | + + + + + | Calculated R [place] | 9 | degrees | [facility] | + + + + + | Calculated T [place] | 27 | degrees | [facility] [...] | | | | | by [facility] Read Only, | | | | | [facility] Kate ([id number]), | | | | | newspaper or periodical editor Korey Deluna | | | | | (253) on 01/07/2019 | | | | | 3:14:57 PM | | | + + + + + + + + + + | Performing | Address | City/State/Zipcode | Phone Number | | Organization | | | | + + + + + | [facility] | [address] | [place] [address] | | + + + + + [...] +------+-------+ + | MEDICARE | MEDICA | [id number] | | | [address] | | | RE | | | | [place], [place] [address] | | | IP-OP | | | | | + +--------+ +------+-------+ + | ODS HEALTH PLAN | ODS - | [id number] | | | | | | GENERI [...] Self | [birth year] | Home: | [address] | | | al/Fam | | 1935 | [phone] | [address] [place] | | | [place] | | | [phone] | [phone] | + +--------+ +--------+ + +
--- OUTSIDE RECORDS SUMMARY | ~2019-02-07 | XMS | Encounter Summary ---
Demographics + + + | Address | [address] | | | [place] [address] | + + + | Home Phone | | + + + | Preferred Language | Unknown | + + + | Marital Status | | + + + | Congregation Affiliation | Unknown | + + + | Race | Unknown | + + + | Ethnic Group | Unknown | + + + Author + + + | Author | [facility] | + + + | Organization | [facility] | + + + | Address | Unknown | + + + | Phone | Unavailable | + + + Support + + +---------+ + | Name | Relationship | Address | Phone | + + +---------+ + | Salas Martinez | ECON | Unknown | | + + +---------+ + Care Team Providers + +------+ + | Care General Purchasing Agent Name | Role | Phone | [...] | | [address] | | [phone]) | | | | [place] | | | | | | [address] | | | | | | [phone] | | | +--------+ + + + [...] | | | | | | [place] [address] | | | | | | [phone] | | | | | | | | +--------+---------+ + + + as of this encounter Visit Diagnoses Not on filein this encounter"
--- OUTSIDE RECORDS SUMMARY | ~2019-02-07 | XMS | Encounter Summary ---
Demographics + + + | Address | [address] | | | [place] [address] | + + + | Home Phone | | + + + | Preferred Language | Unknown | + + + | Marital Status | | + + + | Sabianist Affiliation | Unknown | + + + | Race | Unknown | + + + | Ethnic Group | Unknown | + + + Author + + + | Author | [facility] | + + + | Organization | [facility] | + + + | Address | Unknown | + + + | Phone | Unavailable | + + + Support + + +---------+ + | Name | Relationship | Address | Phone | + + +---------+ + | Salas Martinez | ECON | Unknown | | + + +---------+ + Care Team Providers + +------+ + | Care Model And Mold Maker Plaster Name | Role | Phone | + [...] + + | 01/07/ | Office | [facility] | Henok Dumont, | Hypertension, | | 2019 | Visit | Cardiology Fazal | MD [address] | unspecified type | | | | [address] | [place], | (Primary Dx); | | | | [facility] [address] | [place] [address] | Coronary artery | | | | [place] [address] | [phone] | disease involving | | | | [phone] | | [place] coronary | | | | | | artery of [place] | | | | | | heart with other | | | | | | form of angina | | | | | | pectoris ([facility]); S/P | | | | [...] | | | | | | infarction) ([facility]); | | | | | [...] Hypertension Neuropathy NSTEMI (non-ST elevated myocardial infarction) ([facility]) 07/05/2012 NSTEMI Occlusion of carotid artery < 50% MAICOL stenosis 2011 Prostate cancer ([facility]) 1994 radiation therapy 1995 RLS (restless legs [...] - REDO; Surgeon: Lauren Tomlinson MD; Location: [facility] OR; Service: C ardiac; Laterality: N/A; [...] - Electrocardiogram, 12-lead Coronary artery disease involving [place] coronary artery of [place] heart with other form of angina pectoris (HCC) S/P CABG x 3 S/P PTCA (percutaneous transluminal coronary angioplasty) NSTEMI (non-ST elevated myocardial infarction) ([facility]) Hyperlipidemia, unspecified hyperlipidemia type Pedal edema SOB (shortness of breath) on exertion in this encounter Plan of Treatment +--------+---------+ + + + | Date | Type | Specialty | Care Team | Description | +--------+---------+ + + + | 05/20/ | Office | Cardiology | Henok Dumont, | | | 2018 | Visit | | MD [address] | | | | | | [place], | | | | | | [place] [address] | | | | | | [phone] | | | | | | | [...] + + + in this encounter Results EK STANDARD 12 LEAD (01/07/2019 10:43 AM) + + + + + | Component | Value | Ref Range | Performed At | + + + + + | Ventricular Rate | 62 | BPM | [facility] | + + + + + [...] + + + + | Calculated P [place] | 33 | degrees | [facility] | + + + + + | Calculated R [place] | 9 | degrees | [facility] | + + + + + | Calculated T [place] | 27 | degrees | [facility] [...] | | | | | by [facility] [place] Read Only, | | | | | [facility] Kate ([id number]), | | | | | marketing editor Korey Deluna | | | | | (253) on 01/07/2019 | | | | | 3:14:57 PM | | | + + + + + + + + + + | Performing | Address | City/State/Zipcode | Phone Number | | Organization | | | | + + + + + | [facility] | [address] | [place] [address] | | + + + + + in this encounter Visit Diagnoses + + | Diagnosis | + + | Hypertension, unspecified type - Primary | + + | Coronary artery disease involving [place] coronary artery of [place] heart with other | | form of [...]
--- OUTSIDE RECORDS SUMMARY | ~2019-02-07 | XMS | Encounter Summary ---
Demographics + + + | Address | [address] | | | [place] [address] | + + + | Home Phone | | + + + | Preferred Language | Unknown | + + + | Marital Status | | + + + | Scientology Affiliation | Unknown | + + + | Race | Unknown | + + + | Ethnic Group | Unknown | + + + Author + + + | Author | [facility] | + + + | Organization | [facility] | + + + | Address | Unknown | + + + | Phone | Unavailable | + + + Support + + +---------+ + | Name | Relationship | Address | Phone | + + +---------+ + | Salas Martinez | ECON | Unknown | | + + +---------+ + Care Team Providers + +------+ + | Care Line Producer Name | Role | Phone | + [...] | | [address] | | [phone]) | | | | [place] | | | | | | [address] | | | | | | [phone] | | | +--------+ + + + [...] | | | | | | [place] [address] | | | | | | [phone] | | | | | | | | +--------+---------+ + + + as of this encounter Visit Diagnoses Not on filein this encounter"
--- OUTSIDE RECORDS SUMMARY | ~2019-02-07 | XMS | Encounter Summary ---
Demographics + + + | Address | [address] | | | [place] [address] | + + + | Home Phone | | + + + | Preferred Language | Unknown | + + + | Marital Status | | + + + | Yazidi Affiliation | Unknown | + + + | Race | Unknown | + + + | Ethnic Group | Unknown | + + + Author + + + | Author | [facility] | + + + | Organization | [facility] | + + + | Address | Unknown | + + + | Phone | Unavailable | + + + Support + + +---------+ + | Name | Relationship | Address | Phone | + + +---------+ + | Salas Martinez | ECON | Unknown | | + + +---------+ + Care Team Providers + +------+ + | Care Vocal Music Instructor Name | Role | Phone | + [...] [place] | | | | | | [address] | | | | | | [phone] | | | +--------+ + + + [...] | | | | | | [place] [address] | | | | | | [phone] | | | | | | | | +--------+---------+ + + + as of this encounter Visit Diagnoses Not on filein this encounter"
--- OUTSIDE RECORDS SUMMARY | ~2019-02-07 | XMS | Clinical Summary ---
Demographics + + + | Address | [address] | | | [place] [address] | + + + | Home Phone | | + + + | Preferred Language | Unknown | + + + | Marital Status | | + + + | Adventism Affiliation | Unknown | + + + | Race | Unknown | + + + | Ethnic Group | Unknown | + + + Author + + + | Author | [facility] | + + + | Organization | [facility] | + + + | Address | Unknown | + + + | Phone | Unavailable | + + + Support + + +---------+ + | Name | Relationship | Address | Phone | + + +---------+ + | Salas Martinez | ECON | Unknown | | + + +---------+ + Care Team Providers + +------+ + | Care Photograph Retoucher Name | Role | Phone | + [...] log | | | | | | [phone]) | +--------+ + + + + | 01/07/ | Office | | Henok Dumont, | Hypertension, | | 2018 | Visit | | MD | unspecified type | | | | | | (Primary Dx); | | | | | | Coronary artery | | | | | | disease involving | | | | | | [place] coronary | | | | | | artery of [place] | | | | | | heart with other | | | | | | form of angina | | | | | | pectoris ([facility]); S/P | | | | | [...] | | | | | | infarction) ([facility]); | | | | | | [...] | | | | | | [place] [address] | | | | | | [phone] | | | | | | | [...] | | 2015 | 5 | | [id number]: Qty: 1 on | | | | | | /[id number] | | 07/09/2012 by Davi, | | [...] + + + + | Calculated P [place] | 33 | degrees | [facility] EKG | + + + + + | Calculated R [place] | 9 | degrees | [facility] EKG | + + + + + | Calculated T [place] | 27 | degrees | [facility] EKG [...] | | | | | by [facility] Read Only, | | | | | [facility] (036), | | | | | index editor Korey Deluna | | | | | (253) on 01/07/2019 | | | | | 3:14:57 PM | | | + + + + + + + + + + | Performing | Address | City/State/Zipcode | Phone Number | | Organization | | | | + + + + + | [facility] | [address] | [place] [address] | | + + + + + [...] +------+-------+ + | MEDICARE | MEDICA | [id number] | | | [address] | | | RE | | | | [place], [place] [address] | | | IP-OP | | | | | + +--------+ +------+-------+ + | [employer]AN | ODS - | [id number] | | | | | | GENERI [...] | | | rosey | | | [phone] | [phone] | + +--------+ +--------+ + +
--- OUTSIDE RECORDS SUMMARY | ~2019-02-07 | XMS | Encounter Summary ---
Demographics + + + | Address | [address] | | | [place] [address] | + + + | Home Phone | | + + + | Preferred Language | Unknown | + + + | Marital Status | | + + + | Restorationism Affiliation | Unknown | + + + | Race | Unknown | + + + | Ethnic Group | Unknown | + + + Author + + + | Author | [facility] | | | and Rezaana | + + + | Organization | [facility] | | | and Rezaana [...] Team Providers + +------+ + | Care Sammying Machine Operator Name | Role | Phone | [...] + + | 11/25/ | Office | [facility] [place] | Juan, Jose, | Lumbar foraminal | | 2019 | Visit | PHYSIATRY [address] | PA-C [address] | stenosis (Primary | | | | [place], | [address] [place] | Dx); Lumbar stenosis | | | | [place] [address] | [place]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 For all procedur es it is recommended that someone else drive you home. documented in this encounter Progress Notes Jose Martinez PA-C - 11/25/2018 1120 PSTFormatting of this note might be different from reva alan. Jose Martinez PA-C [address] [facility], [address] [place] [address] FAX: PHYSICAL MEDICINE AND REHABILITATION [...] Pneumonia Prostate cancer (HCC) 1994 Radiation: 10/1995-12/1995, [facility] Right atrial enlargement Type 2 diabetes mellitus without complication ([facility]) PAST SURGICAL HISTORY: Past Surgical History: Procedure Laterality Date CARPAL TUNNEL RELEASE Right 12/17/2017 CATARACT REMOVAL Bilateral CORONARY ARTERY BYPASS GRAFT 07/31/2004 [facility] CORONARY ARTERY BYPASS GRAFT 07/09/2012 [facility] GALLBLADDER SURGERY 04/19/2007 Dr. Vinson, [facility] PROSTATE SURGERY 1994 Prostate Cancer CURRENT MEDICATIONS: [...] has no apparent deficits with short or detention memory. He has appropriate fund of knowledge [...] (multiple sessions over the years) and care management coordinator. Unfortunately Feliz Martinez continues to have significant [...] | | | | | [place] [address] | | | | | | [phone] | | | | | | | | | | | | Supervisor Waterproofing, [facility] | | +--------+ + + + [...]
--- OUTSIDE RECORDS SUMMARY | ~2019-02-07 | XMS | Encounter Summary ---
Demographics + + + | Address | [address] | | | [place] [address] | + + + | Home Phone | | + + + | Preferred Language | Unknown | + + + | Marital Status | | + + + | Synagogue Affiliation | Unknown | + + + | Race | Unknown | + + + | Ethnic Group | Unknown | + + + Author + + + | Author | [facility] | | | and Rezaana | + + + | Organization | [facility] | | | and Rezaana [...] Team Providers + +------+ + | Care Painter Chassis Name | Role | Phone | + [...] | Lumbar | Charli, | [address] | | | | | radiculopath | Elias Leal MD | [place], | | | | | y | [address] | [place] | | | | | Procedures | ST [place] | [address] | | | | | [place] INJECT | [place], [place] | Phone: | | | | | ANES/STEROID | [address] | [phone] | | | | | [place] | Phone: | Fax: | | | | | LUMBAR/SACRA | [phone] | [phone] | | | | | [address] | Fax: | | | | | | GUIDE ,1 | [phone] | | | | | | [place] | | | | | | | [...] + + | 11/25/ | Hospital | [facility] | Jose Martinez, | Lumbar radiculopathy | | 2019 | Encounter | MED CTR XRAY [address] | PA-C [address] | | | | | [place] | [address] [place] | | | | | [place] [address] | [place] [address] | | | | | [phone] | | | | | | | | | | | | Superintendent Maintenance AirportsMelany | | +--------+ + + + + [...] | | | | [address] [facility] | | | | | | [place] [address] | | | | | | [phone] | | | | | | | | | | | | Superintendent Maintenance AirportsDarrell | | +--------+ + + + + [...]
--- OUTSIDE RECORDS SUMMARY | ~2019-02-07 | XMS | Encounter Summary ---
Demographics + + + | Address | [address] | | | [place] [address] | + + + | Home Phone | | + + + | Preferred Language | Unknown | + + + | Marital Status | | + + + | Christian Affiliation | Unknown | + + + | Race | Unknown | + + + | Ethnic Group | Unknown | + + + Author + + + | Author | [facility] | | | and Rezaana | + + + | Organization | 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 For all procedur es it is recommended that someone else drive you home. documented in this encounter Progress Notes Jose Martinez PA-C - 11/25/2018 1120 PSTFormatting of this note might be different from reva alan. Jose Martinez PA-C [address] [facility], [address] [place] [address] FAX: PHYSICAL MEDICINE AND REHABILITATION [...] Pneumonia Prostate cancer (HCC) 1994 Radiation: 10/1995-12/1995, [facility] Right atrial enlargement Type 2 diabetes mellitus without complication ([facility]) PAST SURGICAL HISTORY: Past Surgical History: Procedure Laterality Date CARPAL TUNNEL RELEASE Right 12/17/2017 CATARACT REMOVAL Bilateral CORONARY ARTERY BYPASS GRAFT 07/31/2004 [facility] CORONARY ARTERY BYPASS GRAFT 07/09/2012 [facility] GALLBLADDER SURGERY 04/19/2007 Dr. Vinson, [facility] PROSTATE SURGERY 1994 Prostate Cancer CURRENT [...] has no apparent deficits with short or senior living memory. He has appropriate fund of knowledge [...] (multiple sessions over the years) and care assistant. Unfortunately Feliz Martinez continues to [...] | | | | | | [place] [address] | | | | | | [phone] | | | | | | | | | | | | Benzol Still Operator, [facility] | | +--------+ + + [...]
--- OUTSIDE RECORDS SUMMARY | ~2019-02-07 | XMS | Clinical Summary ---
Demographics + + + | Address | [address] | | | [place] [address] | + + + | Home Phone | | + + + | Preferred Language | Unknown | + + + | Marital Status | | + + + | Hoahaoism Affiliation | Unknown | + + + | Race | Unknown | + + + | Ethnic Group | Unknown | + + + Author + + + | Author | [facility] | | | and Rezaana | + + + | Organization | [facility] | | | and Rezaana [...] Providers + +------+ + | Care Director Trading Name | Role | Phone | + [...] LComment: | | 09/25/2016 - letter from [facility]; poss exposure NTM in bypass [...] | 2018 | Encounter | | KEVIN Store Leader, | | | | | | [facility] [...] | | | | | | [place] [address] | | | | | | [phone] | | | | | | | | | | | | Store Leader, [facility] | | +--------+ + + + [...] + +--------+ | MEDICARE | MEDICA | [id number] | | [phone] | | Medica | | | RE | | 000-Pr | 5 | | re | | | PART A | | esent | | | | | | AND B | | | | | | + +--------+ +--------+ + +--------+ | MODA | MODA | [id number] | 10/29/19 | [phone] | [address] | Indemn | | | HEALTH | | 14-Pre | 9 | [address] | ity | | | MDCR | | sent | | [place], | | | | [place] | | | | [place] [address] | | + +--------+ +--------+ + +--------+ [...] rosey | | | 5 (Home) | [address] | + +--------+ +--------+ + + Advance Directives Patient has advance care planning documents on file. For more information, please contact:[facility] [place] [address]
--- OUTSIDE RECORDS SUMMARY | ~2019-02-07 | XMS | Encounter Summary ---
Demographics + + + | Address | [address] | | | [place] [address] | + + + | Home Phone [...] | [facility] | | | and Rezaana | + + + | Organization | [facility] | | | and Rezaana [...] Team Providers + +------+ + | Care Physical Plant Employee Name | Role | Phone | + [...] | | stenosis | [place], | [facility] [place] | | | | | with | [place] [address] | [address] Phone: | | | | | neurogenic | Phone: | [phone] | | | | | claudication | [phone] | Fax: | | | | | Lumbar | Fax: | [phone] | | | | | radiculopath | [phone] | | | | | | y [...] | | stenosis | [place], | [place], [place] | | | | | with | [place] [address] | [address] Phone: | | | | | neurogenic | Phone: | [phone] | | | | | claudication | [phone] | Fax: | | | | | Lumbar | Fax: | [phone] | | | | | radiculopath | [phone] | | | | | | y [...] + + | 02/04/ | Office | [facility] | Jose Martinez, | Lumbar radiculopathy | | 2019 | Visit | PHYSIATRY [address] | PA-C [address] | (Primary Dx); | | | | [place], | [address] [place] | Lumbar foraminal | | | | [place] [address] | [place] [address] | stenosis; Lumbar | | | | [phone] | [phone] | stenosis with | | | | [...] of the procedure you must provide a sales route driver to take you home. For all [...] press against a nerve. Date Last Reviewed: 12/27/201719994814-6208 [employer]. [address] [place] [address], [place] [address]. All [facility] hospital[facility] ts reserved. This information is not intended as a substitute for professional medical care. Always follow your healthcare professional's instructions. documented in this encounter Progress Notes Jose Martinez PA-C - 02/04/2019 1040 PDTFormatting of this note might be different from th e original. Jose Martinez PA-C [address] [facility], [address] [place] [address] FAX: PHYSICAL MEDICINE AND REHABILITATION H&P CHIEF [...] inactivity Depression Diabetes ([facility]) Gastric reflux Heart disease Hereditary and idiopathic neuropathy, unspecified High cholesterol History of blood transfusion History of fracture Pars interarticularis History of ulceration Ulcer Hypertension Left atrial enlargement Lumbago Lumbar spondylosis Murmur Echo 09/2017 Neuropathy Feet Obstructive sleep apnea (adult) (pediatric) Other spondylosis, lumbar region Peripheral neuropathy Pneumonia Prostate cancer ([facility]) 1994 Radiation: 10/1995-12/1995, [facility] Right atrial enlargement Type 2 diabetes mellitus without complication ([facility]) PAST SURGICAL HISTORY: Past Surgical History: Procedure Laterality Date CARPAL TUNNEL RELEASE Right 12/17/2017 CATARACT REMOVAL Bilateral CORONARY ARTERY BYPASS GRAFT 07/31/2004 [facility] CORONARY ARTERY BYPASS GRAFT 07/09/2012 [facility] GALLBLADDER SURGERY 04/19/2007 Dr. Vinson, [facility] PROSTATE SURGERY 1994 Prostate Cancer CURRENT MEDICATIONS: [...] has no apparent deficits with short or intermodal owner operator truck driver memory. He has appropriate fund [...] sessions over the years) and resident care coordinator. Unfortunately Feliz Martinez continues to have [...] care. ELECTRONICALLY EDITED AND SIGNED BY: Jose Martinze PA-C, 02/04/2019 documented in this encou nter Plan of Treatment +--------+ + + + + | Date | Type | Specialty | Care Team | Description | +--------+ + + + + | 03/05/ | Appointment | Radiology | Jose Martinez, | | | 2018 | | | KEVIN [address] | | | | | | [address] [facility] | | | | | | [place] [address] | | | | | | [phone] | | | | | | | | | | | | Station ExaminerDarrell | | +--------+ + + + + [...] + +--------+ + + | Dr. Auguste_Neurosurgery [facility] | Routin | Lumbar foraminal | Ordered: [...]
--- OUTSIDE RECORDS SUMMARY | ~2019-02-07 | XMS | Encounter Summary ---
Demographics + + + | Address | [address] | | | [place] [address] | + + + | Home Phone | | + + + | Preferred Language | Unknown | + + + | Marital Status | | + + + | Church Affiliation | Unknown | + + + | Race | Unknown | + + + | Ethnic Group | Unknown | + + + Author + + + | Author | [facility] | + + + | Organization | [facility] | + + + | Address | Unknown | + + + | Phone | Unavailable | + + + Support + + +---------+ + | Name | Relationship | Address | Phone | + + +---------+ + | Salas Martinez | ECON | Unknown | | + + +---------+ + Care Team Providers + +------+ + | Care Auto Winder Name | Role | Phone | + [...] + + | 01/07/ | Office | [facility] | Henok Dumont, | Hypertension, | | 2019 | Visit | Cardiology Fazal | MD [address] | unspecified type | | | | [address] | [place], | (Primary Dx); | | | | [facility] [address] | [place] [address] | Coronary artery | | | | [place] [address] | [phone] | disease involving | | | | [phone] | | [place] coronary | | | | | | artery of pit river | | | | | | heart [...] - REDO; Surgeon: Lauren Tomlinson MD; Location: [facility] OR; Service: C ardiac; Laterality: [...] ceFAZolin (ANCEF) injection, , Intravenous, PRN, Jorden oLmeli MD, 1 g at 07/09/12 17 19 [...] - Electrocardiogram, 12-lead Coronary artery disease involving [place] coronary artery of [place] heart with other form of angina pectoris [...] 2018 | Visit | | MD [address] | | | | | | [place], | | | | | | [place] [address] | | | | | | [phone] | | | | | | | [...] + + + + | Calculated P Hawarden | 33 | degrees | [facility] EKG | + + + + + | Calculated R Hawarden | 9 | degrees | [facility] EKG | + + + + + | Calculated T Ha[place] | 27 | degrees | [facility] EKG [...] | | | | | by [facility] Maxwell Read Only, | | | | | ICA Kate ([id number]), | | | | | state editor Korey Deluna | | | | | (253) on 01/07/2019 | | | | | 3:14:57 PM | | | + + + + + + + + + + | Performing | Address | City/State/Zipcode | Phone Number | | Organization | | | | + + + + + | [facility] | [address] | [place] [address] | | + + + + + in this encounter Visit Diagnoses + + | Diagnosis | + + | Hypertension, unspecified type - Primary | + + | Coronary artery disease involving pit [place] coronary artery of [place] river heart with other | | form of [...]
--- OUTSIDE RECORDS SUMMARY | ~2019-02-07 | XMS | Encounter Summary ---
Demographics + + + | Address | [address] | | | [place] [address] | + + + | Home Phone [...] Author | [facility] | | | and Rezaana | + + + | Organization | [facility] | | | and Rezaana [...] Team Providers + +------+ + | Care Template Storage Clerk Name | Role | Phone | [...] | Lumbar | Charli, | [address] | | | | | radiculopath | Elias Leal MD | [place], | | | | | y | [address] | [place] | | | | | Procedures | [place] | [address] | | | | | [place] INJECT | [place] | Phone: | | | | | ANES/STEROID | [address] | [phone] | | | | | FORAMEN | Phone: | Fax: | | | | | LUMBAR/SACRA | [phone] | [phone] | | | | | L W IMG | Fax: | | | | | | GUIDE ,1 | [phone] | | | | | | LEVEL [place] | | | | | | | [...] + + | 11/25/ | Hospital | [facility] | Jose Martinez, | Lumbar radiculopathy | | 2019 | Encounter | MED CTR XRAY [address] | PA-C [address] | | | | | [place] | [address] [place] | | | | | [place] [address] | [place] [address] | | | | | [phone] | [phone] | | | | | | | | | | | | Soft Iron InspectorMelany | | +--------+ + + + + [...] | | | | [address] [facility] | | | | | | [place] [address] | | | | | | [phone] | | | | | | | | | | | | Soft Iron InspectorDarrell | | +--------+ + + + + [...]
--- OUTSIDE RECORDS SUMMARY | 2019-02-07 12:40 | XMS ---
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 Jose Angel VISIT COUNT (12 MO.) [address] [place] [address] TOTAL 4 NOTE: Visits indicate total known visits. 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 - Gastro-esophageal reflux disease without esophagitis - Allergy status to other drugs, medicaments and biological substances status - Obesity, unspecified - Personal history of nicotine dependence - lobsterman (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
== END 2019-02-07 15:42 | disposition home or self-care (01) ==
LOC: ED 12:38
PROC: 0T9B70Z Drainage of Bladder with Drainage Device, Via Natural or Artificial Opening (ICD-10-PCS; principal; 2019-02-07)
DX: T83.091A Other mechanical complication of indwelling urethral catheter, initial encounter (principal); N48.1 Balanitis; E78.5 Hyperlipidemia, unspecified; E11.9 Type 2 diabetes mellitus without complications; I10 Essential (primary) hypertension; I25.10 Atherosclerotic heart disease of native coronary artery without angina pectoris; K21.9 Gastro-esophageal reflux disease without esophagitis; E66.9 Obesity, unspecified; Z85.46 Personal history of malignant neoplasm of prostate; Z90.49 Acquired absence of other specified parts of digestive tract; Z95.1 Presence of aortocoronary bypass graft; Z95.5 Presence of coronary angioplasty implant and graft; Z88.8 Allergy status to other drugs, medicaments and biological substances; Z79.899 Other long term (current) drug therapy; Z79.82 Long term (current) use of aspirin
CPT/HCPCS: 51702; 99283-25

== ENCOUNTER 2019-02-21 00:03 | Emergency (ER) | payer MEDICARE, OTHER ==
[~2019-02-21] VITALS: Ht 172.7 cm; Wt 115.7 kg
--- OUTSIDE RECORDS SUMMARY | ~2019-02-21 | XMS | Encounter Summary ---
Demographics + + + | Address | [address] [facility] [address] | | | [place] [address] | + + + | Home Phone | | + + + | Preferred Language | Unknown | + + + | Marital Status | | + + + | Islam Affiliation | Unknown | + + + | Race | Unknown | + + + | Ethnic Group | Unknown | + + + Author + + + | Author | [facility] | | | and Rezaana | + + + | Organization | [facility] | | | and Rezaana | [...] Team Providers + +------+ + | Care Family And Marriage Counsellor Name | Role | Phone | + +------+ + | Angelito Maxwell | PCP | | | MD | | | + +------+ + Reason for Referral Evaluate & Treat (Routine) +--------+ + + + + + | Status | Reason | Specialty | Diagnoses / | Referred By | Referred To | | | | | Procedures | Contact | Contact | +--------+ + + + + + | Closed | Specialty | Neuropsycholo | Diagnoses | Juan | Rojas Torres | | | Services | gy | Lumbar | KEVIN Garcia | Marcel, PhD [address] | | | Required | | foraminal | [address] | [place] | | | | | stenosis | [address] | [place] | | | | | Lumbar | [address] | [address] | | | | | stenosis | [place], | [place], [place] | | | | | with | [place] [address] | [address] Phone: | | | | | neurogenic | Phone: | [phone] | | | | | claudication | [phone] | Fax: | | | | | Lumbar | Fax: | [phone] | | | | | radiculopath | [phone] | | | | | | y | | | +--------+ + + + + + Evaluate & [...] | Lumbar | KEVIN Garcia | Tyson Barksdale MD | | | Required | | foraminal | [address] | [address] | | | | | stenosis | [address] | [place] | | | | | Lumbar | [address] | Drive | | | | | stenosis | [place], | [place], [place] | | | | | with | [place] [address] | [address] Phone: | | | | | neurogenic | Phone: | [phone] | | | | | claudication | [phone] | Fax: | | | | | Lumbar | Fax: | [phone] | | | | | radiculopath | [phone] | | | | | | y [...] + + | 02/04/ | Office | [facility] | Jose Martinez, | Lumbar radiculopathy | | 2019 | Visit | PHYSIATRY [address] | PA-C [address] | (Primary Dx); | | | | [place], | [address] [place] | Lumbar foraminal | | | | [place] [address] | [place] [address] | stenosis; Lumbar | | | | [phone] | [phone] | stenosis with | | | | [...] + + | Pulse | 67 | 02/04/20191033 PDT | + + + [...] of the procedure you must provide a hazmat truck driver to take you home. For [...] press against a nerve. Date Last Reviewed: 12/27/201719992326-3741 [employer]. [address] [place] [address]. All [facility] ts reserved. This information is not intended as a substitute for professional medical care. Always follow your healthcare professional's instructions. documented in this encounter Progress Notes Jose Martinez PA-C - 02/04/2019 1040 PDTFormatting of this note might be different from th e original. Jose Martinez PA-C [address] [facility], [address] [place] [address] FAX: PHYSICAL MEDICINE AND REHABILITATION H&P CHIEF [...] Dependent edema Due to inactivity Depression Diabetes (HCC) Gastric reflux Heart disease Hereditary and idiopathic neuropathy, unspecified High cholesterol History of blood transfusion History of fracture Pars interarticularis History of ulceration Ulcer Hypertension Left atrial enlargement Lumbago Lumbar spondylosis Murmur Echo 09/2017 Neuropathy Feet Obstructive sleep apnea (adult) (pediatric) Other spondylosis, lumbar region Peripheral neuropathy Pneumonia Prostate cancer ([facility]) 1994 Radiation: 10/1995-12/1995, [facility] Right atrial enlargement Type 2 diabetes mellitus without complication ([facility]) PAST SURGICAL HISTORY: Past Surgical History: Procedure Laterality Date CARPAL TUNNEL RELEASE Right 12/17/2017 CATARACT REMOVAL Bilateral CORONARY ARTERY BYPASS GRAFT 07/31/2004 [facility] CORONARY ARTERY BYPASS GRAFT 07/09/2012 [facility] GALLBLADDER SURGERY 04/19/2007 Dr. Vinson, [facility] PROSTATE SURGERY 1994 Prostate Cancer CURRENT MEDICATIONS: [...] has no apparent deficits with short or chcf memory. He has appropriate fund of knowledge [...] PT (multiple sessions over the years) and out of school hours care worker. Unfortunately Feliz Martinez continues to have significant [...] | | | | [address] [facility] | | | | | | [place] [address] | | | | | | [phone] | | | | | | | | | | | | Accounting ManagerDarrell | | +--------+ + + + + [...] + +--------+ + + | Dr. Auguste_Neurosurgery [facility] | Routin | Lumbar foraminal | [...]
--- OUTSIDE RECORDS SUMMARY | ~2019-02-21 | XMS | Encounter Summary ---
Demographics + + + | Address | [address] | | | [place] [address] | + + + | Home Phone | | + + + | Preferred Language | Unknown | + + + | Marital Status | | + + + | Jain Affiliation | Unknown | + + + | Race | Unknown | + + + | Ethnic Group | Unknown | + + + Author + + + | Author | [facility] | + + + | Organization | [facility] | + + + | Address | Unknown | + + + | Phone | Unavailable | + + + Support + + +---------+ + | Name | Relationship | Address | Phone | + + +---------+ + | Salas Martinez | ECON | Unknown | | + + +---------+ + Care Team Providers + +------+ + | Care Project Controller Name | Role | Phone | + +------+ + | Angelito Maxwell MD | PCP | | + +------+ + Reason for Visit +--------+ + | Reason | Comments | +--------+ + | Other | Patient's blood sugar log | +--------+ + Encounter Details +--------+ + + + + | Date | Type | Department | Care Team | Description | +--------+ + + + + | 01/08/ | Documentati | [facility] | Nena Farias, | Other (Patient's | | 2019 | on Only | Cardiology Ike | IMER | blood sugar log | | | | [address] | | [phone]) | | | | [place] | | | | | | [address] | | | | | | [phone] | | | +--------+ + + + [...] as of this encounter Plan of Treatment +--------+---------+ + + + | Date | Type | Specialty | Care Team | Description | +--------+---------+ + + + | 05/20/ | Office | Cardiology | Henok Dumont, | | | 2018 | Visit | | MD [address] | | | | | | [place], | | | | | | [place] [address] | | | | | | [phone] | | | | | | | | +--------+---------+ + + + as of this encounter Visit Diagnoses Not on filein this encounter"
--- OUTSIDE RECORDS SUMMARY | ~2019-02-21 | XMS | Encounter Summary ---
Demographics + + + | Address | [address] [facility] [address] | | | [place] [address] | + + + | Home Phone | | + + + | Preferred Language | Unknown | + + + | Marital Status | | + + + | Evangelical Affiliation | Unknown | + + + | Race | Unknown | + + + | Ethnic Group | Unknown | + + + Author + + + | Author | [facility] | | | and Rezaana | + + + | Organization | [facility] | | | and Rezaana | [...] Team Providers + +------+ + | Care Large Animal Veterinarian Name | Role | Phone | + +------+ + | Angelito Maxwell | PCP | | | MD | | | + +------+ + Reason for Visit Service/Procedure (Routine) +--------+--------+ + + + + | Status | Reason | Specialty | Diagnoses / | Referred By | Referred To | | | | | Procedures | Contact | Contact | +--------+--------+ + + + + | Closed | | Radiology | Diagnoses | | [facility] | | | | | Lumbar | Charli, | [address] | | | | | radiculopath | Elias Leal MD | Jesika Canchola, | | | | | y | [address] | [place] | | | | | Procedures | [address] [place] | [address] | | | | | MT INJECT | [place] | Phone: | | | | | ANES/STEROID | [address] | [phone] | | | | | FORAMEN | Phone: | Fax: | | | | | LUMBAR/SACRA | [phone] | [phone] | | | | | L W IMG | Fax: | | | | | | GUIDE ,1 | [phone] | | | | | | LEVEL MT | | | | | | | TRIAMCINOLON | | | | | | | E ACET INJ | | | | | | | NOS, 10 MG | | | | | | | Same Day | | | | | | | 11/25/18 | | | | | | | Bilat. L5-S1 | | | | | | | TFESI | | | +--------+--------+ + + + + Encounter Details +--------+ + + + + | Date | Type | Department | Care Team | Description | +--------+ + + + + | 11/25/ | Hospital | [facility] | Jose Martinez, | Lumbar radiculopathy | | 2019 | Encounter | MED CTR XRAY [address] | PA-C [address] | | | | | [place] | [address] [place] | | | | | [place] [address] | [place] [address] | | | | | [phone] | | | | | | | | | | | | Aircraft Engine InstallerMelany | | +--------+ + + + + Social History + + [...] this encounter Last Filed Vital Signs + +---------+ + | Vital Sign | Reading | Time Taken | + +---------+ + | Blood Pressure | 201/87 | 11/25/2018 1300 PST | + +---------+ + | Pulse | 68 | 11/25/2018 1300 PST | + +---------+ + | Temperature | - | - | + +---------+ + | Respiratory Rate | - | - | + +---------+ + | Oxygen Saturation | - | - | + +---------+ + | Inhaled Oxygen | - | - | | Concentration | | | + +---------+ + | Weight | - | - | + +---------+ + | Height | - | - | + +---------+ + | Body Mass Index | - | - | + +---------+ + documented in this encounter Medications at Time of Discharge + + + +---------+ + + | Medication | Sig | Dispensed | Refills | Start | End Date | | | | | | Date | | + + + +---------+ + + | acetaminophen | Take 1,000 mg by | | 0 | | | | (TYLENOL) 500 mg | mouth as needed for | | | | | | tablet | Pain. | | | | | + + + +---------+ + + | aspirin 325 MG EC | Take 325 mg by mouth | | 0 | | | | tablet | nightly. | | | | | + + + +---------+ + + | bismuth | Take 15 mLs by mouth | | 0 | | | | subsalicylate | every 6 hours as | | | | | | (KAOPECTATE) 262 | needed for | | | | | | mg/15 mL suspension | Indigestion. | | | | | + + + +---------+ + + | bismuth | Take 262 mg by mouth | | 0 | | | | subsalicylate (PEPTO | Daily as needed. | | | | | | BISMOL) 262 MG TABS | | | | | | + + + +---------+ + + | colestipol | Take 5 g by mouth | | 0 | 10/25/20 | | | (COLESTID) 5 g | Daily. | | | 18 | | | packet | | | | | | + + + +---------+ + + | cyanocobalamin | Take 1,000 mcg by | | 0 | | | | (VITAMIN B-12) 1000 | mouth every morning. | | | | | | MCG tablet | | | | | | + + + +---------+ + + | doxycycline | Take 50 mg by mouth | | 0 | | | | (VIBRAMYCIN) 100 mg | every morning. | | | | | | tablet | | | | | | + + + +---------+ + + | gabapentin | Take 200 mg by mouth | | 0 | | | | (NEURONTIN) 100 mg | nightly. | | | | | | capsule | | | | | | + + + +---------+ + + | glimepiride | Take 8 mg by mouth | | 0 | | | | (AMARYL) 4 mg tablet | every morning. | | | | | + + + +---------+ + + | | Take 25 mg by mouth | | 0 | 06/25/20 | | | hydroCHLOROthiazide | Daily. | | | 18 | | | 25 mg tablet | | | | | | + + + +---------+ + + | loperamide | Take 2 mg by mouth | | 0 | | | | (IMODIUM) 2 mg | as needed for | | | | | | capsule | Diarrhea. | | | | | + + + +---------+ + + | losartan (COZAAR) | Take 100 mg by mouth | | 0 | | | | 100 MG tablet | nightly. | | | | | + + + +---------+ + + | metoprolol | Take 25 mg by mouth. | | 0 | | | | tartrate (LOPRESSOR) | Patient taking 25 | | | | | | 25 mg tablet | mg qam and 50 mg qpm | | | | | + + + +---------+ + + | nitroglycerin | nitroglycerin 0.4 mg | | 0 | | | | (NITROSTAT) 0.4 mg | sublingual tablet | | | | | | SL tablet | | | | | | + + + +---------+ + + | omeprazole | Take 40 mg by mouth | | 0 | | | | (PRILOSEC) 40 MG | in the morning and | | | | | | capsule | in the evening. | | | | | + + + +---------+ + + | rOPINIRole | Take 6 mg by mouth 3 | | 0 | | | | (REQUIP) 3 MG tablet | times daily. | | | | | + + + +---------+ + + | tamsulosin | Take 0.4 mg by mouth | | 0 | | | | (FLOMAX) 0.4 mg CAPS | nightly. | | | | | + + + +---------+ + + | tolterodine | Take 4 mg by mouth | | 0 | 11/19/19 | | | (DETROL LA) 4 MG 24 | every morning. | | | 19 | | | hr capsule | | | | | | + + + +---------+ + + | amLODIPine | Take 5 mg by mouth | | 0 | | | | (NORVASC) 5 mg | Daily. | | | | 9 | | tablet | | | | | | + + + +---------+ + + | FLUoxetine | Take 20 mg by mouth | | 0 | 06/26/20 | | | (PROZAC) 20 mg | Daily. | | | 18 | 9 | | capsule | | | | | | + + + +---------+ + + | Trospium Chloride | Take 60 mg by mouth | | 0 | | | | 60 MG CP24 | every morning. | | | | 9 | + + + +---------+ + + documented as of this encounter Plan of Treatment +--------+ + + + + | Date | Type | Specialty | Care Team | Description | +--------+ + + + + | 03/05/ | Appointment | Radiology | Jose Martinez, | | | 2019 | | | KEV[address] | | | | | | [address] [facility] | | | | | | [place] [address] | | | | | | [phone] | | | | | | | | | | | | Aircraft Engine InstallerDarrell | | +--------+ + + + + documented as of this encounter Procedures + +--------+ [...] section. | + +--------+ + + + documented in this encounter Results FL KLAUS Lumbar Transforaminal (11/25/2018 12:58 [...] | | | + +---------+ + + documented in this encounter Visit Diagnoses + + | Diagnosis | + + | Lumbar radiculopathy Thoracic or lumbosacral neuritis or radiculitis, unspecified | + + documented in this encounter Administered Medications + +--------+ +-------+------+------+ | Medication Order | MAR | Action | Dose | Rate | Site | | | Action | Date | | | | + +--------+ +-------+------+------+ | betamethasone (CELESTONE | Given | 11/25/19 | 12 mg | | | | SOLUSPAN) injection 12 mg 12 mg, | | 19 12:40 | | | | | Other, ONCE, 11/25/18 at | | PST | | | | | 1245, For 1 dose, Shake well. Not | | | | | | | for IV use., | | | | | | + +--------+ +-------+------+------+ +---+---+ | | | +---+---+ + +-------+ +-------+---+---+ | iohexol (OMNIPAQUE 300) 300 | Given | 11/25/19 | 4 mLs | | | | mg/mL injection 4 mL 4 mL, | | 19 12:35 | | | | | INTRATHECAL, ONCE, 11/25/18 at | | PST | | | | | 1245, For 1 dose | | | | | | + +-------+ +-------+---+---+ +---+---+ | | | +---+---+ + +-------+ +-------+---+---+ | lidocaine (PF) 1% injection 2 | Given | 11/25/19 | 2 mLs | | | | mL 2 mL, Other, ONCE, Mon | | 19 12:40 | | | | | 11/25/18 at 1245, For 1 dose | | PST | | | | + +-------+ +-------+---+---+ +---+---+ | | | +---+---+ + +-------+ +--------+---+ + | lidocaine buffered 0.9% | Given | 11/25/19 | 10 mLs | | Other | | injection 10 mL 10 mL, | | 19 12:30 | | | (Comment | | Intradermal, ONCE, 11/25/18 at | | PST | | | ) | | 1245, For 1 dose | | | | | | + +-------+ +--------+---+ + +---+---+ | | | +---+---+ documented in this encounter"
--- OUTSIDE RECORDS SUMMARY | ~2019-02-21 | XMS | Clinical Summary ---
Demographics + + + | Address | [address] | | | [place] [address] | + + + | Home Phone | | + + + | Preferred Language | Unknown | + + + | Marital Status | | + + + | Moravian Affiliation | Unknown | + + + | Race | Unknown | + + + | Ethnic Group | Unknown | + + + Author + + + | Author | [facility] | | | and Rezaana | + + + | Organization | [facility] | | | and [...] Providers + +------+ + | Care Acid Concentrator Name | Role | Phone | + [...] LComment: | | 09/25/2016 - letter from [facility]; poss exposure NTM in bypass Nov [...] | 2018 | Encounter | | [facility] Hamper Maker, | | | | | | [facility] [...] | | | | | | [place] [address] | | | | | | [phone] | | | | | | | | | | | | Hamper Maker, [facility] | | +--------+ + + + [...] + +--------+ | MEDICARE | MEDICA | [id number] | | [phone] | | Medica | | | RE | | 000-Pr | 5 | | re | | | PART A | | esent | | | | | | AND B | | | | | | + +--------+ +--------+ + +--------+ | MODA | MODA | [id number] | 10/29/19 | [phone] | [address] | Indemn | | | HEALTH | | 14-Pre | 9 | [address] | ity | | | MDCR | | sent | | [place], | | | | [place] | | | | [place] [address] | | + +--------+ +--------+ + +--------+ [...] rosey | | | 5 (Home) | [address] | + +--------+ +--------+ + + Advance Directives Patient has advance care planning documents on file. For more information, please contact:[facility] [place] [address]
--- OUTSIDE RECORDS SUMMARY | ~2019-02-21 | XMS | Encounter Summary ---
Demographics + + + | Address | [address] [facility] [address] | | | [place] [address] | + + + | Home Phone | | + + + | Preferred Language | Unknown | + + + | Marital Status | | + + + | Confucianism Affiliation | Unknown | + + + | Race | Unknown | + + + | Ethnic Group | Unknown | + + + Author + + + | Author | [facility] | | | and Rezaana | + + + | Organization | [facility] | | | and [...] Team Providers + +------+ + | Care Pbx Repairer Name | Role | Phone | + +------+ + | Angelito Maxwell | PCP | | | MD | | | + +------+ + Reason for Visit + + + | Reason | Comments | + + + | Follow-up | Same Day Injection | + + + Encounter Details +--------+---------+ + + + | Date | Type | Department | Care Team | Description | +--------+---------+ + + + | 11/25/ | Office | [facility] [place] | Juan, Jose, | Lumbar foraminal | | 2019 | Visit | PHYSIATRY [address] | PA-C [address] | stenosis (Primary | | | | [place], | [address] [place] | Dx); Lumbar stenosis | | | | [place] [address] | [place] [address] | with neurogenic | | | | [phone] | [phone] | claudication; Lumbar | | | | | | radiculopathy | +--------+---------+ + + + Social History [...] + + + | Blood Pressure | 169/81 | 11/25/20181051 PST | + + + + | Pulse | 74 | 11/25/20181051 PST | + + + + | Temperature [...] Weight | 117.9 kg (260 lb) | 11/25/2018 1052 PST | + + + + | Height | 172.7 cm (5' 8") | 11/25/2018 1052 PST | + + + + | Body Mass Index | 39.53 | 11/25/2018 1052 PST | + + + + documented in this encounter Patient Instructions Patient Instructions Jose Martinez PA-C - 11/25/2018 11:20 PSTFollow up with Jose Martinez PA-C approximately 3 weeks after injection. Please remember to complete pain log form for t his visit. DISCONTINUE ASPIRIN 7 DAYS BEFORE ANY FUTURE [...] of the procedure you must provide a vibratory pile driver to take you home. For all procedur es it is recommended that someone else drive you home. documented in this encounter Progress Notes Jose Martinez PA-C - 11/25/2018 1120 PSTFormatting of this note might be different from reva alan. Jose Martinez PA-C [address] [facility] [place] [address] FAX: PHYSICAL MEDICINE AND REHABILITATION H&P CHIEF COMPLAINT: Chief Complaint Patient presents with Follow-up Same Day Injection HISTORY OF PRESENT ILLNESS: The patient is a 83 y.o. male being seen today for same day bi lateral L5-S1 TFESI. Received this injection the past with about 85% relief. Most recent i njection was in June 2018. He reports that the injections provided significant relief for the first month or so but then began to wear off shortly after The patient reports that the pain started with no known incident or trauma. The symptoms have been gradually worsen ing. His last round of injections were to bilateral SI joints for which she reported signif icant relief however it was also lasting for only 1-2 months. Today patient [...] which does help relieve back pain . The patient does report diarrhea which if difficult to predict but denies saddle anesthesia /bowel bladder incontinence. He does have a history of external beam radiation for prostate cancer ~20 years ago. He recently saw a new doctor who attributed his diarrhea incontinence to his diet and lack of gallbladder and since he has changed his diet his diarrhea incontin ence has decreased in frequency. His urologist attributes his urinary incontinence to his p rior prostate radiation. His symptoms improve with changing position, specifically [...] lumbar region Peripheral neuropathy Pneumonia Prostate cancer (HCC) 1994 Radiation: 10/1995-12/1995, [facility] Right atrial enlargement Type 2 diabetes mellitus without complication ([facility]) PAST SURGICAL HISTORY: Past Surgical History: Procedure Laterality Date CARPAL TUNNEL RELEASE Right 12/17/2017 CATARACT REMOVAL Bilateral CORONARY ARTERY BYPASS GRAFT 07/31/2004 [facility] CORONARY ARTERY BYPASS GRAFT 07/09/2012 [facility] GALLBLADDER SURGERY 04/19/2007 Dr. Vinson, [facility] PROSTATE SURGERY 1994 Prostate Cancer CURRENT MEDICATIONS: Current Outpatient Prescriptions Medication Sig Dispense Refill acetaminophen (TYLENOL) 500 [...] 60 years ago. His smoking use included Ciga rettes. He started smoking about 65 years ago. He has a 5.00 pack-year smoking history. He h as never used smokeless tobacco. He reports that he drinks alcohol. He reports that he does not use drugs. FAMILY HISTORY: Family History Problem Relation Age of Onset Breast cancer Mother Cancer Mother Heart disease Mother Stroke Father 77 CVA No Known Problems Brother No Known Problems Maternal Grandmother No Known Problems Maternal Grandfather No Known Problems Paternal Grandmother No Known Problems Paternal Grandfather No Known Problems Brother Seizures Daughter 44 Grand mal seizure Early Daughter 44 Grand mal seizure No Known Problems Daughter No Known Problems Son ROS GENERALLY: No fever, no night [...] joint arthritis, no rheumatoid arthritis. PHYSICAL EXAMINATION: Blood pressure 169/81, pulse 74, height 1.727 m (5' 8"), weight 117.9 kg (260 lb). Body mas s index is 39.53 kg/m. GENERAL: The patient [...] has no apparent deficits with short or care home memory. He has appropriate fund of knowledge [...] the lower extr emities showed: Left lower 4-/5, right 4+/5. The patient was able to heel and toe walk witho ut definite weakness but he has poor balance. There was no redness, effusion, warmth or faustino nt line tenderness in the knees or ankles. Mild discomfort with forward flexion and improvem ent with lumbar extension. Left Hip decreased ROM [...] stenosis Yes Lumbar stenosis with neurogenic claudication Lumbar radiculopathy PLAN: 1) Today we discussed the patient's [...] PT (multiple sessions over the years) and healthcare account manager. Unfortunately Feliz Martinez continues to have significant discomfort. It appears to me that the pain is pr imarily coming from bilateral L5-S1 region. I did feel that Feliz Martinez would be a good candidate for interventional proce dures and I offered a repeat bilateral L5-S1 TF KLAUS to be done. spinal cord stimulator discussed great detail today. Patient has received relief with i njections however is only 1-2 months of relief. At that radiate require several more inject ions per year than recommended. Patient does have multilevel central canal stenosis however he is not open to surgery. I encouraged him to at least me with a neurosurgeon if this inj ection is unsuccessful for a second opinion regarding his lumbar spine. If he is adamantly rejecting surgery then we will refer him to Dr. Torres for neuropsychol ogical evaluation and subsequent spinal cord stimulator trial. Spinal stimulator handouts we re provided today. 5) Patient will follow up with me 3 weeks post injection to discuss any imaging and/or prog ress with today's treatment plan. I spent 30 minutes in visit with Feliz Martinez today with the majority of time spen t counselling the patient on his diagnosis, options for his care, and coordinating his care. ELECTRONICALLY EDITED AND SIGNED BY: Jose Martinez PA-C, 11/25/2018 documented in this encou nter Plan of Treatment +--------+ + + + + | Date | Type | Specialty | Care Team | Description | +--------+ + + + + | 03/05/ | Appointment | Radiology | Jose Martinez, | | | 2018 | | | [address] | | | | | | [address] [place] | | | | | | [place] [address] | | | | | | [phone] | | | | | | | | | | | | [facility]d [facility], [facility] | | +--------+ + + + + documented as of this encounter Visit Diagnoses + + | Diagnosis | + + | Lumbar foraminal stenosis - Primary Spinal stenosis, lumbar region, without | | neurogenic claudication | + + | Lumbar stenosis with neurogenic claudication Spinal stenosis, lumbar region, with | | neurogenic claudication | + + | Lumbar radiculopathy Thoracic or lumbosacral neuritis or radiculitis, unspecified | + + documented in this encounter
--- OUTSIDE RECORDS SUMMARY | ~2019-02-21 | XMS | Encounter Summary ---
Demographics + + + | Address | [address] | | | [place] [address] | + + + | Home Phone | | + + + | Preferred Language | Unknown | + + + | Marital Status | | + + + | Jew Affiliation | Unknown | + + + | Race | Unknown | + + + | Ethnic Group | Unknown | + + + Author + + + | Author | [facility] | + + + | Organization | [facility] | + + + | Address | Unknown | + + + | Phone | Unavailable | + + + Support + + +---------+ + | Name | Relationship | Address | Phone | + + +---------+ + | Salas Martinez | ECON | Unknown | | + + +---------+ + Care Team Providers + +------+ + | Care Furnace Repairer Name | Role | Phone | [...] | | [address] | | [phone]) | | | | [place] | | | | | | [address] | | | | | | [phone] | | | +--------+ + + + [...] | | | | | | [place] [address] | | | | | | [phone] | | | | | | | | +--------+---------+ + + + as of this encounter Visit Diagnoses Not on filein this encounter"
--- OUTSIDE RECORDS SUMMARY | ~2019-02-21 | XMS | Encounter Summary ---
Demographics + + + | Address | [address] | | | [place] [address] | + + + | Home Phone | | + + + | Preferred Language | Unknown | + + + | Marital Status | | + + + | Hindu Affiliation | Unknown | + + + | Race | Unknown | + + + | Ethnic Group | Unknown | + + + Author + + + | Author | [facility] | + + + | Organization | [facility] | + + + | Address | Unknown | + + + | Phone | Unavailable | + + + Support + + +---------+ + | Name | Relationship | Address | Phone | + + +---------+ + | Salas Martinez | ECON | Unknown | | + + +---------+ + Care Team Providers + +------+ + | Care Chlorination Operator Name | Role | Phone | [...] [place] | | | | | | [address] | | | | | | [phone] | | | +--------+ + + + [...] | | | | | | [place] [address] | | | | | | [phone] | | | | | | | | +--------+---------+ + + + as of this encounter Visit Diagnoses Not on filein this encounter"
--- OUTSIDE RECORDS SUMMARY | ~2019-02-21 | XMS | Encounter Summary ---
Demographics + + + | Address | [address] | | | [place] [address] | + + + | Home Phone | | + + + | Preferred Language | Unknown | + + + | Marital Status | | + + + | Christian Affiliation | Unknown | + + + | Race | Unknown | + + + | Ethnic Group | Unknown | + + + Author + + + | Author | [facility] | + + + | Organization | [facility] | + + + | Address | Unknown | + + + | Phone | Unavailable | + + + Support + + +---------+ + | Name | Relationship | Address | Phone | + + +---------+ + | Salas Martinez | ECON | Unknown | | + + +---------+ + Care Team Providers + +------+ + | Care Watch Commander Name | Role | Phone | + [...] | 01/07/ | Office | [facility] | Henok Dumont, | Hypertension, | | 2019 | Visit | Cardiology [place] | MD [address] | unspecified type | | | | [address] | [place], | (Primary Dx); | | | | [facility] [address] | [place] [address] | Coronary artery | | | | [place] [address] | [phone] | disease involving | | | | [phone] | | solomon coronary | | | | | | artery of solomon | | | | | | heart with other | | | | | | form of angina | | | | | | pectoris ([facility]); S/P | | | | | | [...] | | | | infarction) ([facility]); | | | | | | Hyperlipidemia, [...] Hypertension Neuropathy NSTEMI (non-ST elevated myocardial infarction) ([facility]) 07/05/2012 NSTEMI Occlusion of carotid artery < 50% MAICOL stenosis 2011 Prostate cancer ([facility]) 1994 radiation therapy 1995 RLS (restless legs [...] - REDO; Surgeon: Lauren Tomlinson MD; Location: [facility] MAIN OR; Service: C ardiac; Laterality: [...] - Electrocardiogram, 12-lead 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 3 S/P PTCA (percutaneous transluminal coronary angioplasty) NSTEMI (non-ST elevated myocardial infarction) ([facility]) Hyperlipidemia, unspecified hyperlipidemia type Pedal edema SOB [...] | | | | | | [place] [address] | | | | | | [phone] | | | | | | | [...] + + + + | Calculated P [place] | 33 | degrees | [facility] EKG | + + + + + | Calculated R [place] | 9 | degrees | [facility] EKG | + + + + + | Calculated T [place] | 27 | degrees | [facility] EKG [...] | | | | | by [facility] Read Only, | | | | | [facility] ([id number]), | | | | | online content editor Korey Deluna | | | | | ([phone]) on 01/07/2019 | | | | | 3:14:57 PM | | | + + + + + + + + + + | Performing | Address | City/State/Zipcode | Phone Number | | Organization | | | | + + + + + | [facility] | [address] | [place] [address] | | + + + + + in this encounter Visit Diagnoses + + | Diagnosis | + + | Hypertension, unspecified type - Primary | + + | Coronary artery disease involving solomon coronary artery of solomon heart with other | | form of [...]
--- OUTSIDE RECORDS SUMMARY | ~2019-02-21 | XMS | Encounter Summary ---
Demographics + + + | Address | [address] [facility] [address] | | | [place] [address] | + + + | Home Phone | | + + + | Preferred Language | Unknown | + + + | Marital Status | | + + + | Presybeterian Affiliation | Unknown | + + + | Race | Unknown | + + + | Ethnic Group | Unknown | + + + Author + + + | Author | [facility] | | | and Rezaana | + + + | Organization | [facility] | | | and Rezaana [...] Team Providers + +------+ + | Care Marine Water Tender Name | Role | Phone | + [...] + | 11/25/ | [facility] | [facility] [place] | Juan, Jose, | Lumbar foraminal | | 2019 | Visit | PHYSIATRY [address] | PA-C [address] | stenosis (Primary | | | | [place], | [address] [place] | Dx); Lumbar stenosis | | | | [place] [address] | [place] [address] | with neurogenic | | | | [phone] | [phone] | claudication; Lumbar | | | | [...] of the procedure you must provide a party bus driver to take you home. For all procedur es it is recommended that someone else drive you home. documented in this encounter Progress Notes Jose Martinez PA-C - 11/25/2018 1120 PSTFormatting of this note might be different from reva alan. Jose Martinez PA-C [address] [facility], [address] [place] [address] FAX: PHYSICAL MEDICINE AND REHABILITATION [...] Pneumonia Prostate cancer (HCC) 1994 Radiation: 10/1995-12/1995, [facility] Right atrial enlargement Type 2 diabetes mellitus without complication ([facility]) PAST SURGICAL HISTORY: Past Surgical History: Procedure Laterality Date CARPAL TUNNEL RELEASE Right 12/17/2017 CATARACT REMOVAL Bilateral CORONARY ARTERY BYPASS GRAFT 07/31/2004 [facility] CORONARY ARTERY BYPASS GRAFT 07/09/2012 [facility] GALLBLADDER SURGERY 04/19/2007 Dr. Vinson, [facility] PROSTATE SURGERY 1994 Prostate Cancer CURRENT [...] has no apparent deficits with short or fci memory. He has appropriate fund of knowledge [...] PT (multiple sessions over the years) and rn care transition. 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
--- OUTSIDE RECORDS SUMMARY | ~2019-02-21 | XMS | Encounter Summary ---
Demographics + + + | Address | [address] | | | [place] [address] | + + + | Home Phone | | + + + | Preferred Language | Unknown | + + + | Marital Status | | + + + | Samaritan Affiliation | Unknown | + + + | Race | Unknown | + + + | Ethnic Group | Unknown | + + + Author + + + | Author | [facility] [facility] | + + + | Organization | [facility] [employer] [facility] | + + + | Address | Unknown | + + + | Phone | Unavailable | + + + Support + + +---------+ + | Name | Relationship | Address | Phone | + + +---------+ + | Salas Martinez | ECON | Unknown | | + + +---------+ + Care Team Providers + +------+ + | Care Entrepreneurial Finance Professor Name | Role | Phone | + [...] + + | 01/07/ | Office | [facility] | Henok Dumont, | Hypertension, | | 2019 | Visit | Cardiology Fazal | MD [address] | unspecified type | | | | [address] | [place], | (Primary Dx); | | | | [facility] [address] | [place] [address] | Coronary artery | | | | [place] [address] | [phone] | disease involving | | | | [phone] | | little traverse coronary | | | | | | artery of little traverse | | | | | | heart with other | | | | | | form of angina | | | | | | pectoris ([facility]); S/P | | | | [...] | | | | | | infarction) ([facility]); | | | | | [...] Hypertension Neuropathy NSTEMI (non-ST elevated myocardial infarction) ([facility]) 07/05/2012 NSTEMI Occlusion of carotid artery < 50% MAICOL stenosis 2011 Prostate cancer ([facility]) 1994 radiation therapy 1995 RLS [...] - REDO; Surgeon: Lauren Tomlinson MD; Location: [facility] MAIN OR; Service: C ardiac; [...] - Electrocardiogram, 12-lead 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 S/P PTCA (percutaneous transluminal coronary angioplasty) NSTEMI (non-ST elevated myocardial infarction) ([facility]) Hyperlipidemia, unspecified hyperlipidemia type Pedal [...] | | | | | | [place] [address] | | | | | | [phone] | | | | | | | [...] + + + + | Calculated P [place] | 33 | degrees | [facility] EKG | + + + + + | Calculated R [place] | 9 | degrees | [facility] EKG | + + + + + | Calculated T [place] | 27 | degrees | [facility] EKG [...] | | | | | by [facility] [place] Read Only, | | | | | [facility] Kate ([id number]), | | | | | web editor Korey Deluna | | | | | (253) on 01/07/2019 | | | | | 3:14:57 PM | | | + + + + + + + + + + | Performing | Address | City/State/Zipcode | Phone Number | | Organization | | | | + + + + + | [facility] | [address] 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
--- OUTSIDE RECORDS SUMMARY | ~2019-02-21 | XMS | Clinical Summary ---
Demographics + + + | Address | [address] | | | [place] [address] | + + + | Home Phone | | + + + | Preferred Language | Unknown | + + + | Marital Status | | + + + | Evangelical Affiliation | Unknown | + + + | Race | Unknown | + + + | Ethnic Group | Unknown | + + + Author + + + | Author | [facility] [employer] [facility] | + + + | Organization | [facility] [employer] [facility] | + + + | Address | Unknown | + + + | Phone | Unavailable | + + + Support + + +---------+ + | Name | Relationship | Address | Phone | + + +---------+ + | Salas Martinez | ECON | Unknown | | + + +---------+ + Care Team Providers + +------+ + | Care Financial Planner Name | Role | Phone | + [...] log | | | | | | [phone]) | +--------+ + + + + | 01/07/ | Office | | Henok Dumont, | Hypertension, | | 2018 | Visit | | MD | unspecified type | | | | | | (Primary Dx); | | | | | | Coronary artery | | | | | | disease involving | | | | | | [place] coronary | | | | | | artery of [place] | | | | | | heart [...] | | | | | | [place] [address] | | | | | | [phone] | | | | | | | [...] | | 2015 | 5 | | [id number]: Qty: 1 on | | | | | | /[id number] | | 07/09/2012 by Davi, | | [...] + + + + | Calculated P [place] | 33 | degrees | [facility] EKG | + + + + + | Calculated R [place] | 9 | degrees | [facility] EKG | + + + + + | Calculated T [place] | 27 | degrees | [facility] EKG [...] | | | | | by [facility] [place] Read Only, | | | | | [facility] Kate ([id number]), | | | | | food editor Korey Deluna | | | | | (253) on 01/07/2019 | | | | | 3:14:57 PM | | | + + + + + + + + + + | Performing | Address | City/State/Zipcode | Phone Number | | Organization | | | | + + + + + | [facility] | [address] | [place] [address] | | + + + + + [...] +------+-------+ + | MEDICARE | MEDICA | [id number] | | | [address] | | | RE | | | | [place], [place] [address] | | | IP-OP | | | | | + +--------+ +------+-------+ + | ODS HEALTH PLAN | ODS - | [id number] | | | | | | GENERI [...] | | | [place] | | | [address] | [address] | + +--------+ +--------+ + +
--- OUTSIDE RECORDS SUMMARY | ~2019-02-21 | XMS | Encounter Summary ---
Demographics + + + | Address | [address] [facility] [address] | | | [place] [address] | + + + | Home Phone | | + + + | Preferred Language | Unknown | + + + | Marital Status | | + + + | Samaritan Affiliation | Unknown | + + + | Race | Unknown | + + + | Ethnic Group | Unknown | + + + Author + + + | Author | [facility] | | | and Rezaana | + + + | Organization | [facility] | | | and Rezaana [...] Team Providers + +------+ + | Care Loft Worker Pile Driving Name | Role | Phone | + [...] | | stenosis | [place], | [place], [place] | | | | | with | [place] [address] | [address] Phone: | | | | | neurogenic | Phone: | [phone] | | | | | claudication | [phone] | Fax: | | | | | Lumbar | Fax: | [phone] | | | | | radiculopath | [phone] | | | | | | y [...] | | stenosis | [place], | [place], [place] | | | | | with | [place] [address] | [address] Phone: | | | | | neurogenic | Phone: | [phone] | | | | | claudication | [phone] | Fax: | | | | | Lumbar | Fax: | [phone] | | | | | radiculopath | [phone] | | | | | | y [...] + + | 02/04/ | Office | [facility] | Jose Martinez, | Lumbar radiculopathy | | 2019 | Visit | PHYSIATRY [address] | PA-C [address] | (Primary Dx); | | | | [facility], | [address] [place] | Lumbar foraminal | | | | [place] [address] | [place] [address] | stenosis; Lumbar | | | | [phone] | [phone] | stenosis with | | | | [...] of the procedure you must provide a route sales driver to take you home. For all [...] press against a nerve. Date Last Reviewed: 12/27/201719996835-1145 [employer]. [address] [place] [address]. All [facility] ts reserved. This information is not intended as a substitute for professional medical care. Always follow your healthcare professional's instructions. documented in this encounter Progress Notes Jose Martinez PA-C - 02/04/2019 1040 PDTFormatting of this note might be different from th e original. Jose Martinez PA-C [address] [facility], [address] [place] [address] FAX: PHYSICAL MEDICINE AND REHABILITATION H&P CHIEF [...] lumbar region Peripheral neuropathy Pneumonia Prostate cancer ([facility]) 1994 Radiation: 10/1995-12/1995, [facility] Right atrial enlargement Type 2 diabetes mellitus without complication ([facility]) PAST SURGICAL HISTORY: Past Surgical History: Procedure Laterality Date CARPAL TUNNEL RELEASE Right 12/17/2017 CATARACT REMOVAL Bilateral CORONARY ARTERY BYPASS GRAFT 07/31/2004 [facility] CORONARY ARTERY BYPASS GRAFT 07/09/2012 [facility] GALLBLADDER SURGERY 04/19/2007 Dr. Vinson, [facility] PROSTATE SURGERY 1994 Prostate Cancer CURRENT [...] has no apparent deficits with short or retirement memory. He has appropriate fund of knowledge [...] PT (multiple sessions over the years) and medical care manager. Unfortunately Feliz Martinez continues to have [...] | | | | [address] [facility] | | | | | | [place] [address] | | | | | | [phone] | | | | | | | | | | | | Border PoliceDarrell | | +--------+ + + + + [...] + +--------+ + + | Dr. Auguste_Neurosurgery [facility] | Routin | Lumbar foraminal | [...]
--- OUTSIDE RECORDS SUMMARY | ~2019-02-21 | XMS | Encounter Summary ---
Demographics + + + | Address | [address] | | | [place] [address] | + + + | Home Phone | | + + + | Preferred Language | Unknown | + + + | Marital Status | | + + + | Orthodoxy Affiliation | Unknown | + + + | Race | Unknown | + + + | Ethnic Group | Unknown | + + + Author + + + | Author | [facility] [facility] [facility] | + + + | Organization | [facility] [facility] [facility] | + + + | Address | Unknown | + + + | Phone | Unavailable | + + + Support + + +---------+ + | Name | Relationship | Address | Phone | + + +---------+ + | Salas Martinez | ECON | Unknown | | + + +---------+ + Care Team Providers + +------+ + | Care Rod Mill Operator Name | Role | Phone | [...] [place] | | | | | | [address] | | | | | | [phone] | | | +--------+ + + + [...] | | | | | | [place] [address] | | | | | | [phone] | | | | | | | | +--------+---------+ + + + as of this encounter Visit Diagnoses Not on filein this encounter"
--- OUTSIDE RECORDS SUMMARY | ~2019-02-21 | XMS | Encounter Summary ---
Demographics + + + | Address | [address] [facility] [address] | | | [place] [address] | + + + | Home Phone | | + + + | Preferred Language | Unknown | + + + | Marital Status | | + + + | Muslim Affiliation | Unknown | + + + | Race | Unknown | + + + | Ethnic Group | Unknown | + + + Author + + + | Author | [facility] | | | and Rezaana | + + + | Organization | [facility] | | | and Rezaana | [...] Team Providers + +------+ + | Care Living Advisor Name | Role | Phone | + [...] | Lumbar | Charli, | [address] | | | | | radiculopath | Elias Leal MD | Jesika Canchola, | | | | | y | [address] | [place] | | | | | Procedures | [place] | [address] | | | | | NE INJECT | [place], [place] | Phone: | | | | | ANES/STEROID | [address] | [phone] | | | | | FORAMEN | Phone: | Fax: | | | | | LUMBAR/SACRA | [phone] | [phone] | | | | | L W IMG | Fax: | | | | | | GUIDE ,1 | [phone] | | | | | | LEVEL NE | | | | | | | [...] + + | 11/25/ | Hospital | [facility] | Jose Martinez, | Lumbar radiculopathy | | 2019 | Encounter | MED CTR XRAY [address] | PA-C [address] | | | | | [address] [place] | [address] [place] | | | | | [place] [address] | [place] [address] | | | | | [phone] | [phone] | | | | | | | | | | | | Swatch ClerkMelany | | +--------+ + + + + [...] | | | [address] [facility] | | | | | | [place] [address] | | | | | | [phone] | | | | | | | | | | | | Swatch ClerkDarrell | | +--------+ + + + + [...]
--- OUTSIDE RECORDS SUMMARY | ~2019-02-21 | XMS | Clinical Summary ---
Demographics + + + | Address | [address] | | | [place] [address] | + + + | Home Phone | | + + + | Preferred Language | Unknown | + + + | Marital Status | | + + + | Moravian Affiliation | Unknown | + + + | Race | Unknown | + + + | Ethnic Group | Unknown | + + + Author + + + | Author | [facility] [employer] [facility] | + + + | Organization | [facility] [employer] [facility] | + + + | Address | Unknown | + + + | Phone | Unavailable | + + + Support + + +---------+ + | Name | Relationship | Address | Phone | + + +---------+ + | Salas Martinez | ECON | Unknown | | + + +---------+ + Care Team Providers + +------+ + | Care Director Shopper Marketing Name | Role | Phone | + [...] log | | | | | | [phone]) | +--------+ + + + + | 01/07/ | Office | | Henok Dumont, | Hypertension, | | 2018 | Visit | | MD | unspecified type | | | | | | (Primary Dx); | | | | | | Coronary artery | | | | | | disease involving | | | | | | [place]on coronary | | | | | | artery of benton | | | | | | heart with other | | | | | | form of angina | | | | | | pectoris ([facility]); S/P | | | | [...] | | | | | | infarction) ([facility]); | | | | | [...] | | | | | | [place] [address] | | | | | | [phone] | | | | | | | [...] | | 2015 | 5 | | [id number]: Qty: 1 on | | | | | | /[id number] | | 07/09/2012 by Davi, | | [...] + + + + | Calculated P [place] | 33 | degrees | [facility] EKG | + + + + + | Calculated R [place] | 9 | degrees | [facility] EKG | + + + + + | Calculated T [place] | 27 | degrees | [facility] EKG [...] | | | | | by [facility] [employer] Read Only, | | | | | [facility] Kate ([id number]), | | | | | map editor Korey Deluna | | | | | (253) on 01/07/2019 | | | | | 3:14:57 PM | | | + + + + + + + + + + | Performing | Address | City/State/Zipcode | Phone Number | | Organization | | | | + + + + + | [facility] | [address] | [place] [address] | | + + + + + [...] +------+-------+ + | MEDICARE | MEDICA | [id number] | | | [address] | | | RE | | | | [place], [place] [address] | | | IP-OP | | | | | + +--------+ +------+-------+ + | [employer]DS HEALTH PLAN | ODS - | [id number] | | | | | | GENERI [...] | | | [place] | | | [address] | [address] | + +--------+ +--------+ + +
--- OUTSIDE RECORDS SUMMARY | ~2019-02-21 | XMS | Clinical Summary ---
Demographics + + + | Address | [address] | | | [place] [address] | + + + | Home Phone | | + + + | Preferred Language | Unknown | + + + | Marital Status | | + + + | Gnosticist Affiliation | Unknown | + + + | Race | Unknown | + + + | Ethnic Group | Unknown | + + + Author + + + | Author | [facility] | | | and Rezaana | + + + | Organization | [facility] | | | and Rezaana [...] Team Providers + +------+ + | Care Boiler Room Helper Name | Role | Phone | [...] LComment: | | 09/25/2016 - letter from [facility]; poss exposure NTM in bypass Nov [...] | 2018 | Encounter | | KEVIN Story Editor, | | | | | | [facility] [...] | | | | | | [place] [address] | | | | | | [phone] | | | | | | | | | | | | Story Editor, [facility] | | +--------+ + + + [...] + +--------+ | MEDICARE | MEDICA | [id number] | | [phone] | | Medica | | | RE | | 000-Pr | 5 | | re | | | PART A | | esent | | | | | | AND B | | | | | | + +--------+ +--------+ + +--------+ | MODA | MODA | [id number] | 10/29/19 | [phone] | [address] | Indemn | | | HEALTH | | 14-Pre | 9 | [address] | ity | | | MDCR | | sent | | [place], | | | | [place] | | | | [place] [address] | | + +--------+ +--------+ + +--------+ [...] [place] | | | 5 (Home) | [address] | + +--------+ +--------+ + + Advance Directives Patient has advance care planning documents on file. For more information, please contact:[facility] [address]
--- OUTSIDE RECORDS SUMMARY | 2019-02-21 00:06 | XMS ---
PreManage Notification: DEEPALI JUDD Security Bow String Maker Events No recent Security Events currently on file CRITERIA MET - [facility] - Has Care Guidelines - [facility] - 2 Visits in 30 Days CARE PROVIDERS KATHE RAJPUT Family Medicine 02/10/2019-Current PHONE: Unknown Vernon Irving MD Primary Care 01/08/2018 PHONE: [phone] Jude Lawrence Primary Care Current PHONE: [phone] Niko has no Care Guidelines for this patient. Care History Medical/Surgical 02/10/2019 [facility] - PATIENT HAS NOT SEEN UROLOGIST DR SCANLON SINCE 07/25/2018 AND CANCELLED HIS FOLLOWING APTS. - W NOTIFIED DR SCANLON UROLOGIST OF THE CURRENT ED VISITS- ED NOTES PROVIDED. - [facility] CONTACTED DR RAJPUT OFFICE- PATIENT HAS A FOLLOW UP APT WITH DR RAJPUT ON 03/04/19. Jose Angel VISIT COUNT (12 MO.) 5 [facility]TH[facility] [place] TOTAL 5 NOTE: Visits indicate total known visits. ED/UCC VISIT TRACKING (12 MO.) 02/21/2019 00:04 [facility] [place] TYPE: Emergency COMPLAINT: - URINE PROBLEM 02/07/2019 12:38 [facility] [place] TYPE: Emergency COMPLAINT: - CATH PROBLEM DIAGNOSES: - Presence of aortocoronary bypass graft - Type 2 diabetes mellitus without complications - Obesity, unspecified - skilled nursing (current) use of aspirin - Presence of coronary angioplasty implant and graft - Essential (primary) hypertension - Acquired absence of other specified parts of digestive tract - Leakage of indwelling urethral catheter, initial encounter - Other mechanical complication of indwelling urethral catheter, initial encounter - Balanitis - Hyperlipidemia, unspecified - 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 - Other supervisor intermediates (current) drug therapy - Allergy status to other drugs, medicaments and biological substances status - Personal history of malignant neoplasm of prostate - Gastro-esophageal reflux disease without esophagitis 02/07/2019 08:40 [facility] [place] TYPE: Emergency COMPLAINT: - CATHETER PROBLEM DIAGNOSES: - Allergy status to other drugs, medicaments and biological substances status - Gastro-esophageal reflux disease without esophagitis - Hyperlipidemia, unspecified - Obesity, unspecified - Type 2 diabetes mellitus without complications - Presence of aortocoronary bypass graft - Other supervisor intermediates (current) drug therapy - Acquired absence of other specified parts of digestive tract - Balanitis - Personal history of malignant neoplasm of prostate - Essential (primary) hypertension - Leakage of indwelling urethral catheter, initial encounter - 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 02/06/2019 20:05 [facility] [place] TYPE: Emergency COMPLAINT: - URINE PROBLEM DIAGNOSES: - Obesity, unspecified - Acquired absence of other specified parts of digestive tract - Presence of coronary angioplasty implant and graft - Retention of urine, unspecified - Type 2 diabetes mellitus without complications - Dysuria - Personal history of malignant neoplasm of prostate - Essential (primary) hypertension - Hyperlipidemia, unspecified - Gastro-esophageal reflux disease without esophagitis - 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 - Presence of aortocoronary bypass graft - skilled nursing (current) use of aspirin - Balanitis - Other supervisor intermediates (current) drug therapy - intermediate project manager (current) use of oral hypoglycemic drugs 09/12/2018 09:12 [facility] [place] TYPE: Emergency COMPLAINT: - CHEST PAIN/DIZZINESS DIAGNOSES: - skilled nursing (current) use of aspirin - Gastro-esophageal reflux disease without esophagitis - Allergy status to other drugs, medicaments and biological substances status - Obesity, unspecified - Personal history of nicotine dependence - skilled nursing (current) use of oral hypoglycemic drugs - 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
== END 2019-02-21 01:02 | disposition home or self-care (01) ==
LOC: ED 00:03
PROC: 0T9B70Z Drainage of Bladder with Drainage Device, Via Natural or Artificial Opening (ICD-10-PCS; principal; 2019-02-21)
PROC: 4A0D7LZ Measurement of Urinary Volume, Via Natural or Artificial Opening (ICD-10-PCS; 2019-02-21)
DX: R33.9 Retention of urine, unspecified (principal); E78.5 Hyperlipidemia, unspecified; E11.9 Type 2 diabetes mellitus without complications; I10 Essential (primary) hypertension; I25.2 Old myocardial infarction; K21.9 Gastro-esophageal reflux disease without esophagitis; E66.9 Obesity, unspecified; Z85.46 Personal history of malignant neoplasm of prostate; Z87.891 Personal history of nicotine dependence; Z95.5 Presence of coronary angioplasty implant and graft; Z95.1 Presence of aortocoronary bypass graft; Z90.49 Acquired absence of other specified parts of digestive tract; Z88.8 Allergy status to other drugs, medicaments and biological substances; Z79.82 Long term (current) use of aspirin; Z79.84 Long term (current) use of oral hypoglycemic drugs; Z79.899 Other long term (current) drug therapy
CPT/HCPCS: 51702; 51798; 99283-25

== ENCOUNTER 2019-03-01 11:17 | Emergency (ER) | payer MEDICARE, OTHER ==
[~2019-03-01] VITALS: Ht 172.7 cm; Wt 115.7 kg
--- OUTSIDE RECORDS SUMMARY | ~2019-03-01 | XMS | Encounter Summary ---
Demographics + + + | Address | [address] | | | [place] [address] | + + + | Home Phone | | + + + | Preferred Language | Unknown | + + + | Marital Status | | + + + | Oriental Orthodox Affiliation | Unknown | + + + | Race | Unknown | + + + | Ethnic Group | Unknown | + + + Author + + + | Author | [facility] | | | and Rezaana | + + + | Organization | [facility] | | | and [...] Team Providers + +------+ + | Care Packaging Sales Consultant Name | Role | Phone | + [...] | | stenosis | [address] | [place] | | | | | Lumbar | [address] | [address] | | | | | stenosis | [place], | [place], [place] | | | | | with | [place] [address] | [address] Phone: | | | | | neurogenic | Phone: | [phone] | | | | | claudication | [phone] | Fax: | | | | | Lumbar | Fax: | [phone] | | | | | radiculopath | [phone] | | | | | | y [...] | | stenosis | [place], | [place], [place] | | | | | with | [place] [address] | [address] Phone: | | | | | neurogenic | Phone: | [phone] | | | | | claudication | [phone] | Fax: | | | | | Lumbar | Fax: | [phone] | | | | | radiculopath | [phone] | | | | | | y [...] + + | 02/04/ | Office | [facility] | Jose Martinez, | Lumbar radiculopathy | | 2019 | Visit | PHYSIATRY [address] | PA-C [address] | (Primary Dx); | | | | [place], | [address] [place] | Lumbar foraminal | | | | [place] [address] | [place] [address] | stenosis; Lumbar | | | | [phone] | [phone] | stenosis with | | | | [...] of the procedure you must provide a rolloff truck driver to take you home. For [...] press against a nerve. Date Last Reviewed: 12/27/201719998941-2312 [employer]. [address] [place] [address]. All [facility] ts reserved. This information is not intended as a substitute for professional medical care. Always follow your healthcare professional's instructions. documented in this encounter Progress Notes Jose Martinez PA-C - 02/04/2019 1040 PDTFormatting of this note might be different from th e original. Jose Martinez PA-C [address] [facility], [address] [place] [address] FAX: PHYSICAL MEDICINE AND REHABILITATION H&P CHIEF [...] lumbar region Peripheral neuropathy Pneumonia Prostate cancer ([facility]) 1994 Radiation: 10/1995-12/1995, [facility] Right atrial enlargement Type 2 diabetes mellitus without complication ([facility]) PAST SURGICAL HISTORY: Past Surgical History: Procedure Laterality Date CARPAL TUNNEL RELEASE Right 12/17/2017 CATARACT REMOVAL Bilateral CORONARY ARTERY BYPASS GRAFT 07/31/2004 [facility] CORONARY ARTERY BYPASS GRAFT 07/09/2012 [facility] GALLBLADDER SURGERY 04/19/2007 Dr. Vinson, [facility] PROSTATE SURGERY 1994 Prostate Cancer CURRENT [...] has no apparent deficits with short or long-term memory. 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 Unfortunately Feliz Martinez continues to have significant [...] | | | | [address] [facility] | | | | | | [place] [address] | | | | | | [phone] | | | | | | | | | | | | Lead DesignerDarrell | | +--------+ + + + + [...] + +--------+ + + | Dr. Auguste_Neurosurgery [facility] | Routin | Lumbar foraminal | [...]
--- OUTSIDE RECORDS SUMMARY | ~2019-03-01 | XMS | Encounter Summary ---
Demographics + + + | Address | [address] | | | [place] [address] | + + + | Home Phone | | + + + | Preferred Language | Unknown | + + + | Marital Status | | + + + | Zoroastrianism Affiliation | Unknown | + + + | Race | Unknown | + + + | Ethnic Group | Unknown | + + + Author + + + | Author | [facility] [employer] [facility] | + + + | Organization | [facility] [employer] [facility] | + + + | Address | Unknown | + + + | Phone | Unavailable | + + + Support + + +---------+ + | Name | Relationship | Address | Phone | + + +---------+ + | Salas Martinez | ECON | Unknown | | + + +---------+ + Care Team Providers + +------+ + | Care Wildlife Ecologist Name | Role | Phone | + [...] | | [address] | | [phone] | | | | [place] | | | | | | [address] | | | | | | [phone] | | | +--------+ + + + [...] | 05/20/ | Office | Cardiology | Heonk Dumont, | | | 2018 | Visit | | MD [address] | | | | | | [place], | | | | | | [place] [address] | | | | | | [phone] | | | | | | | | +--------+---------+ + + + as of this encounter Visit Diagnoses Not on filein this encounter"
--- OUTSIDE RECORDS SUMMARY | ~2019-03-01 | XMS | Encounter Summary ---
Demographics + + + | Address | [address] | | | [place] [address] | + + + | Home Phone | | + + + | Preferred Language | Unknown | + + + | Marital Status | | + + + | Latter-Day Affiliation | Unknown | + + + | Race | Unknown | + + + | Ethnic Group | Unknown | + + + Author + + + | Author | [facility] [email or web address] [facility] | + + + | Organization | [facility] [employer] [facility] | + + + | Address | Unknown | + + + | Phone | Unavailable | + + + Support + + +---------+ + | Name | Relationship | Address | Phone | + + +---------+ + | Salas Martinez | ECON | Unknown | | + + +---------+ + Care Team Providers + +------+ + | Care Floorworker Name | Role | Phone | + [...] | | [address] | | [phone]) | | | | [place] | | | | | | [address] | | | | | | [phone] | | | +--------+ + + + [...] | | | | | | [place] [address] | | | | | | [phone] | | | | | | | | +--------+---------+ + + + as of this encounter Visit Diagnoses Not on filein this encounter"
--- OUTSIDE RECORDS SUMMARY | ~2019-03-01 | XMS | Encounter Summary ---
Demographics + + + | Address | [address] | | | [place] [address] | + + + | Home Phone | | + + + | Preferred Language | Unknown | + + + | Marital Status | | + + + | Buddhist Affiliation | Unknown | + + + | Race | Unknown | + + + | Ethnic Group | Unknown | + + + Author + + + | Author | [facility] | + + + | Organization | [facility] | + + + | Address | Unknown | + + + | Phone | Unavailable | + + + Support + + +---------+ + | Name | Relationship | Address | Phone | + + +---------+ + | Salas Martinez | ECON | Unknown | | + + +---------+ + Care Team Providers + +------+ + | Care Director Hospice Operations Name | Role | Phone | [...] + + | 01/07/ | Office | [facility] | Henok Dumont, | Hypertension, | | 2019 | Visit | Cardiology Fazal | MD [address] | unspecified type | | | | [address] | [place], | (Primary Dx); | | | | [facility] [address] | [place] [address] | Coronary artery | | | | [place] [address] | [phone] | disease involving | | | | [phone] | | [place] coronary | | | | | | artery of [place] | | | | | | heart with other | | | | | | form of angina | | | | | | pectoris ([facility]); S/P | | | | | [...] | | | | | | infarction) ([facility]); | | | | | | [...] Hypertension Neuropathy NSTEMI (non-ST elevated myocardial infarction) ([facility]) 07/05/2012 NSTEMI Occlusion of carotid artery < 50% MAICOL stenosis 2011 Prostate cancer ([facility]) 1994 radiation therapy 1995 RLS (restless [...] REDO; Surgeon: Lauren Tomlinson MD; Location: [facility] MAIN OR; Service: C ardiac; [...] - Electrocardiogram, 12-lead Coronary artery disease involving [place] coronary artery of [place] heart with other form of angina pectoris (HCC) S/P CABG x 3 S/P PTCA (percutaneous transluminal coronary angioplasty) NSTEMI (non-ST elevated myocardial infarction) ([facility]) Hyperlipidemia, unspecified hyperlipidemia type Pedal edema [...] | | | | | | [place] [address] | | | | | | [phone] | | | | | | | [...] + + + + | Calculated P H[place] | 33 | degrees | [facility] EKG | + + + + + | Calculated R Hague | 9 | degrees | [facility] EKG | + + + + + | Calculated T Hague | 27 | degrees | [facility] EKG [...] | | | | | by [facility] [place] Read Only, | | | | | [facility] Kate ([id number]), | | | | | medical transcription editor Korey Deluna | | | | | (253) on 01/07/2019 | | | | | 3:14:57 PM | | | + + + + + + + + + + | Performing | Address | City/State/Zipcode | Phone Number | | Organization | | | | + + + + + | [facility] | [address] | [place] [address] | | + + + + + in this encounter Visit Diagnoses + + | Diagnosis | + + | Hypertension, unspecified type - Primary | + + | Coronary artery disease involving [place] coronary artery of [place] heart with other | | form of [...]
--- OUTSIDE RECORDS SUMMARY | ~2019-03-01 | XMS | Clinical Summary ---
Demographics + + + | Address | [address] | | | [place] [address] | + + + | Home Phone | | + + + | Preferred Language | Unknown | + + + | Marital Status | | + + + | Scientology Affiliation | Unknown | + + + | Race | Unknown | + + + | Ethnic Group | Unknown | + + + Author + + + | Author | [facility] | + + + | Organization | [facility] | + + + | Address | Unknown | + + + | Phone | Unavailable | + + + Support + + +---------+ + | Name | Relationship | Address | Phone | + + +---------+ + | Salas Martinez | ECON | Unknown | | + + +---------+ + Care Team Providers + +------+ + | Care Access Clerk Name | Role | Phone | + [...] log | | | | | | [phone]) | +--------+ + + + + | 01/07/ | Office | | Henok Dumont, | Hypertension, | | 2018 | Visit | | MD | unspecified type | | | | | | (Primary Dx); | | | | | | Coronary artery | | | | | | disease involving | | | | | | [place] coronary | | | | | | artery of [place] | | | | | | heart with other | | | | | | form of angina | | | | | | pectoris ([facility]); S/P | | | | [...] | | | | infarction) ([facility]); | | | | | [...] | | | | | | [place] [address] | | | | | | [phone] | | | | | | | [...] | | 2015 | 5 | | [id number]: Qty: 1 on | | | | | | /[id number] | | 07/09/2012 by Davi, | | [...] + + + + | Calculated P [place] | 33 | degrees | [facility] E[facility] | + + + + + | Calculated R [place] | 9 | degrees | [facility] E[facility] | + + + + + | Calculated T [place] | 27 | degrees | [facility] E[facility] [...] | | | | | by [facility] [place] Read Only, | | | | | [facility] Kate ([id number]), | | | | | wind farm operations manager Korey Deluna | | | | | (253) on 01/07/2019 | | | | | 3:14:57 PM | | | + + + + + + + + + + | Performing | Address | City/State/Zipcode | Phone Number | | Organization | | | | + + + + + | [facility] | [address] | [place] [address] | | + + + + + [...] +------+-------+ + | MEDICARE | MEDICA | [id number] | | | [address] | | | RE | | | | [place], [place] [address] | | | IP-OP | | | | | + +--------+ +------+-------+ + | [employer] PLAN | ODS - | [id number] | | | | | | GENERI [...] | | | [place] | | | [phone] | [address] | + +--------+ +--------+ + +
--- OUTSIDE RECORDS SUMMARY | ~2019-03-01 | XMS | Clinical Summary ---
Demographics + + + | Address | [address] | | | [place] [address] | + + + | Home Phone | | + + + | Preferred Language | Unknown | + + + | Marital Status | | + + + | Christianity Affiliation | Unknown | + + + | Race | Unknown | + + + | Ethnic Group | Unknown | + + + Author + + + | Author | [facility] | | | and Rezaana | + + + | Organization | [facility] | | | and Rezaana [...] Team Providers + +------+ + | Care Process Consultant Name | Role | Phone | [...] XRT 3 months prostate cancer - [facility] [place] , | | 2017Entered By: JUANCARLOS [...] LComment: | | 09/25/2016 - letter from [facility]; poss exposure NTM in bypass Nov [...] | | | | | | [address] [place] | | | | | | [place] [address] | | | | | | [phone] | | | | | | | | | | | | Rotary Drill Operator, [facility] | | +--------+ + + + [...] + +--------+ | MEDICARE | MEDICA | [id number] | | [phone] | | Medica | | | RE | | 000-Pr | 5 | | re | | | PART A | | esent | | | | | | AND B | | | | | | + +--------+ +--------+ + +--------+ | MODA | MODA | [id number] | 10/29/19 | [phone] | [address] | Indemn | | | HEALTH | | 14-Pre | 9 | [address] | ity | | | MDCR | | sent | | [place], | | | | [place] | | | | [place] [address] | | + +--------+ +--------+ + +--------+ [...] | [address] | | [address]orje | [address]/Y[address] | | 1935 | [phone] | [address] [place] | | | [place] | | | 5 (Home) | [address] | + +--------+ +--------+ + + Advance Directives Patient has advance care planning documents on file. For more information, please contact:[facility] [place] [address]
--- OUTSIDE RECORDS SUMMARY | ~2019-03-01 | XMS | Clinical Summary ---
Demographics + + + | Address | [address] | | | [place] [address] | + + + | Home Phone | | + + + | Preferred Language | Unknown | + + + | Marital Status | | + + + | Jewish Affiliation | Unknown | + + + | Race | Unknown | + + + | Ethnic Group | Unknown | + + + Author + + + | Author | [facility] | | | and Rezaana | + + + | Organization | [facility] | | | and [...] Team Providers + +------+ + | Care Certified Nurses Aide Name | Role | Phone | + [...] LComment: | | 09/25/2016 - letter from [facility]; poss exposure NTM in bypass Nov [...] [address] | | | | | | [place] [address] | | | | | | [phone] | | | | | | | | | | | | Heel Lining Paster, [facility] | | +--------+ + + + [...] + +--------+ | MEDICARE | MEDICA | [id number] | | [phone] | | Medica | | | RE | | 000-Pr | 5 | | re | | | PART A | | esent | | | | | | AND B | | | | | | + +--------+ +--------+ + +--------+ | MODA | MODA | [id number] | 10/29/19 | [phone] | [address] | Indemn | | | HEALTH | | 14-Pre | 9 | [address] | ity | | | MDCR | | sent | | [place], | | | | [place] | | | | [place] [address] | | + +--------+ +--------+ + +--------+ [...] Jorje | bren[address]/Yonas | | 1935 | [phone] | [address] [place] | | | [place] | | | 5 (Home) | [address] | + +--------+ +--------+ + + Advance Directives Patient has advance care planning documents on file. For more information, please contact:[facility] [place] [address]
--- OUTSIDE RECORDS SUMMARY | ~2019-03-01 | XMS | Encounter Summary ---
Demographics + + + | Address | [address] | | | [place] [address] | + + + | Home Phone | | + + + | Preferred Language | Unknown | + + + | Marital Status | | + + + | Christianity Affiliation | Unknown | + + + | Race | Unknown | + + + | Ethnic Group | Unknown | + + + Author + + + | Author | [facility] | + + + | Organization | [facility] | + + + | Address | Unknown | + + + | Phone | Unavailable | + + + Support + + +---------+ + | Name | Relationship | Address | Phone | + + +---------+ + | Salas Martinez | ECON | Unknown | | + + +---------+ + Care Team Providers + +------+ + | Care Windrower Operator Name | Role | Phone | [...] [place] | | | | | | [address] | | | | | | [phone] | | | +--------+ + + + [...] | 05/20/ | Office | Cardiology | Henko Dumont, | | | 2018 | Visit | | MD [address] | | | | | | [place], | | | | | | [place] [address] | | | | | | [phone] | | | | | | | | +--------+---------+ + + + as of this encounter Visit Diagnoses Not on filein this encounter"
--- OUTSIDE RECORDS SUMMARY | ~2019-03-01 | XMS | Encounter Summary ---
Demographics + + + | Address | [address] | | | [place] [address] | + + + | Home Phone | | + + + | Preferred Language | Unknown | + + + | Marital Status | | + + + | Restorationism Affiliation | Unknown | + + + | Race | Unknown | + + + | Ethnic Group | Unknown | + + + Author + + + | Author | [facility] | | | and Rezaana | + + + | Organization | [facility] | [...] Team Providers + +------+ + | Care Hazardous Waste Management Specialist Name | Role | Phone | + [...] | | stenosis | [address] | [place] | | | | | Lumbar | [address] | [address] | | | | | stenosis | [place], | [place], [place] | | | | | with | [place] [address] | [address] Phone: | | | | | neurogenic | Phone: | [phone] | | | | | claudication | [phone] | Fax: | | | | | Lumbar | Fax: | [phone] | | | | | radiculopath | [phone] | | | | | | y [...] | | stenosis | [place], | [place], [place] | | | | | with | [place] [address] | [address] Phone: | | | | | neurogenic | Phone: | [phone] | | | | | claudication | [phone] | Fax: | | | | | Lumbar | Fax: | [phone] | | | | | radiculopath | [phone] | | | | | | y [...] + + | 02/04/ | Office | [facility] | Jose Martinez, | Lumbar radiculopathy | | 2019 | Visit | PHYSIATRY [address] | PA-C [address] | (Primary Dx); | | | | [place], | [address] [place] | Lumbar foraminal | | | | [place] [address] | [place] [address] | stenosis; Lumbar | | | | [phone] | [phone] | stenosis with | | | | [...] of the procedure you must provide a pickup driver to take you home. For all [...] press against a nerve. Date Last Reviewed: 12/27/201719994332-1983 [employer]. [address] [place] [address]. All [facility] ts reserved. This information is not intended as a substitute for professional medical care. Always follow your healthcare professional's instructions. documented in this encounter Progress Notes Jose Martinez PA-C - 02/04/2019 1040 PDTFormatting of this note might be different from th e original. Jose Martinez PA-C [address] [facility], [address] [place] [address] FAX: PHYSICAL MEDICINE AND REHABILITATION H&P CHIEF [...] lumbar region Peripheral neuropathy Pneumonia Prostate cancer ([facility]) 1994 Radiation: 10/1995-12/1995, [facility] Right atrial enlargement Type 2 diabetes mellitus without complication ([facility]) PAST SURGICAL HISTORY: Past Surgical History: Procedure Laterality Date CARPAL TUNNEL RELEASE Right 12/17/2017 CATARACT REMOVAL Bilateral CORONARY ARTERY BYPASS GRAFT 07/31/2004 [facility] CORONARY ARTERY BYPASS GRAFT 07/09/2012 [facility] GALLBLADDER SURGERY 04/19/2007 Dr. 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 Unfortunately Feliz Martinez continues to have significant [...] | | | | [address] [facility] | | | | | | [place] [address] | | | | | | [phone] | | | | | | | | | | | | Tool SupervisorDarrell | | +--------+ + + + + [...]
--- OUTSIDE RECORDS SUMMARY | ~2019-03-01 | XMS | Encounter Summary ---
Demographics + + + | Address | [address] | | | [place] [address] | + + + | Home Phone | | + + + | Preferred Language | Unknown | + + + | Marital Status | | + + + | Protestant Affiliation | Unknown | + + + | Race | Unknown | + + + | Ethnic Group | Unknown | + + + Author + + + | Author | [facility] | + + + | Organization | [facility] | + + + | Address | Unknown | + + + | Phone | Unavailable | + + + Support + + +---------+ + | Name | Relationship | Address | Phone | + + +---------+ + | Salas Martinez | ECON | Unknown | | + + +---------+ + Care Team Providers + +------+ + | Care Refinery Superintendent Name | Role | Phone | + [...] [place] | | | | | | [address] | | | | | | [phone] | | | +--------+ + + + [...] | | | | | | [place] [address] | | | | | | [phone] | | | | | | | | +--------+---------+ + + + as of this encounter Visit Diagnoses Not on filein this encounter"
--- OUTSIDE RECORDS SUMMARY | ~2019-03-01 | XMS | Encounter Summary ---
Demographics + + + | Address | [address] | | | [place] [address] | + + + | Home Phone | | + + + | Preferred Language | Unknown | + + + | Marital Status | | + + + | Church Affiliation | Unknown | + + + | Race | Unknown | + + + | Ethnic Group | Unknown | + + + Author + + + | Author | [facility] | + + + | Organization | [facility] [facility] | + + + | Address | Unknown | + + + | Phone | Unavailable | + + + Support + + +---------+ + | Name | Relationship | Address | Phone | + + +---------+ + | Salas Martinez | ECON | Unknown | | + + +---------+ + Care Team Providers + +------+ + | Care Lime Plant Operator Name | Role | Phone | [...] | (Primary Dx); | | | | [facility] [address] | [place] [address] | Coronary artery | | | | [place] [address] | [phone] | disease involving | | | | [phone] | | [place] coronary | | | | | | artery of [place] | | | | | | [...] - REDO; Surgeon: Lauren Tomlinson MD; Location: [facility] MAIN OR; Service: C ardiac; Laterality: [...] 07/09/12 1046 midazolam (VERSED) injection, , , PRNJoredn MD, 3 mg at 07/09/12 1608 protamine [...] - Electrocardiogram, 12-lead Coronary artery disease involving [place] coronary artery of [place] heart with other form of angina [...] | | | | | | [place] [address] | | | | | | [phone] | | | | | | | [...] + + + + | Calculated P Felt | 33 | degrees | [facility] E[facility] | + + + + + | Calculated R Felt | 9 | degrees | [facility] E[facility] | + + + + + | Calculated T Felt | 27 | degrees | [facility] EKG [...] | | | | | by [facility] [place] Read Only, | | | | | [facility] Kate ([id number]), | | | | | manuscript editor Korey Deluna | | | | | (253) on 01/07/2019 | | | | | 3:14:57 PM | | | + + + + + + + + + + | Performing | Address | City/State/Zipcode | Phone Number | | Organization | | | | + + + + + | [facility] | [address] | [place] [address] | | + + + + + in this encounter Visit Diagnoses + + | Diagnosis | + + | Hypertension, unspecified type - Primary | + + | Coronary artery disease involving [place] coronary artery of [place] heart with other | | form [...]
--- OUTSIDE RECORDS SUMMARY | ~2019-03-01 | XMS | Clinical Summary ---
Demographics + + + | Address | [address] | | | [place] [address] | + + + | Home Phone | | + + + | Preferred Language | Unknown | + + + | Marital Status | | + + + | Confucianism Affiliation | Unknown | + + + | Race | Unknown | + + + | Ethnic Group | Unknown | + + + Author + + + | Author | [facility] | + + + | Organization | [facility] | + + + | Address | Unknown | + + + | Phone | Unavailable | + + + Support + + +---------+ + | Name | Relationship | Address | Phone | + + +---------+ + | Salas Martinez | ECON | Unknown | | + + +---------+ + Care Team Providers + +------+ + | Care Manager Services Name | Role | Phone | + [...] log | | | | | | [phone]) | +--------+ + + + + | 01/07/ | Office | | Henok Dumont, | Hypertension, | | 2018 | Visit | | MD | unspecified type | | | | | | (Primary Dx); | | | | | | Coronary artery | | | | | | disease involving | | | | | | [place] coronary | | | | | | artery of [place] | | | | | | heart with other | | | | | | form of angina | | | | | | pectoris ([facility]); S/P | | | | [...] | | | | infarction) ([facility]); | | | | | [...] | | | | | | [address], | | | | | | [place] [address] | | | | | | [phone] | | | | | | | [...] | | 2015 | 5 | | [id number]: Qty: 1 on | | | | | | /[id number] | | 07/09/2012 by Davi, | | [...] + + + + | Calculated P [place] | 33 | degrees | [facility] | + + + + + | Calculated R [place] | 9 | degrees | [facility] | + + + + + | Calculated T [place] | 27 | degrees | [facility] [...] | | | | | by [facility] Read Only, | | | | | [facility] Kate ([id number]), | | | | | assistant film editor Korey Deluna | | | | | (253) on 01/07/2019 | | | | | 3:14:57 PM | | | + + + + + + + + + + | Performing | Address | City/State/Zipcode | Phone Number | | Organization | | | | + + + + + | [facility] | [address] | [place] [address] | | + + + + + [...] +------+-------+ + | MEDICARE | MEDICA | [id number] | | | [address] | | | RE | | | | [place], [place] [address] | | | IP-OP | | | | | + +--------+ +------+-------+ + | [employer]AN | ODS - | [id number] | | | | | | GENERI [...] | | | [place] | | | [phone] | [phone] | + +--------+ +--------+ + +
--- OUTSIDE RECORDS SUMMARY | 2019-03-01 11:20 | XMS ---
PreManage Notification: DEEPALI JUDD Security Cyber Operator Events No recent Security Events currently on file CRITERIA MET - 6 ED Visits in 6 Months - [facility] - Has Care Guidelines - [facility] - 2 Visits in 30 Days CARE PROVIDERS KATHE RAJPUT Family Medicine 02/10/2019-Current PHONE: Unknown Vernon Irving MD Primary Care 01/08/2018 PHONE: [phone] Jude Lawrence Primary Care Current PHONE: [phone] Niko has no Care Guidelines for this patient. Care History Medical/Surgical 02/21/2019 [facility] - PER RECENT ED VISIT- PATIENT IS NOW SEEING DR CORTES -UROLOGIST [place]. - PATIENT HAS AN APT WITH UROLOGIST ON SUNDAY FEBRUARY 24, 2019. 02/10/2019 [facility] - PATIENT HAS NOT SEEN UROLOGIST DR SCANLON SINCE 07/25/2018 AND CANCELLED HIS FOLLOWING APTS. - W NOTIFIED DR SCANLON UROLOGIST OF THE CURRENT ED VISITS- ED NOTES PROVIDED. - CHW CONTACTED DR RAJPUT OFFICE- PATIENT HAS A FOLLOW UP APT WITH DR RAJPUT ON 03/04/19. E.D. VISIT COUNT (12 MO.) 6 [facility] TOTAL 6 NOTE: Visits indicate total known visits. ED/UCC VISIT TRACKING (12 MO.) 03/01/2019 11:17 [facility] [place] TYPE: Emergency COMPLAINT: - POSS STROKE SYMPTOMS 02/21/2019 00:04 [facility] [place] TYPE: Emergency COMPLAINT: - URINE PROBLEM DIAGNOSES: - Obesity, unspecified - Other exterminator (current) drug therapy - termite exterminator (current) use of oral hypoglycemic drugs - Retention of urine, unspecified - Personal history of malignant neoplasm of prostate - Presence of aortocoronary bypass graft - Essential (primary) hypertension - Acquired absence of other specified parts of digestive tract - Type 2 diabetes mellitus without complications - Personal history of nicotine dependence - Gastro-esophageal reflux disease without esophagitis - half-way (current) use of aspirin - Hyperlipidemia, unspecified - Presence of coronary angioplasty implant and graft - Old myocardial infarction - Allergy status to other drugs, medicaments and biological substances status 02/07/2019 12:38 [facility] [place] TYPE: Emergency COMPLAINT: - CATH PROBLEM DIAGNOSES: - Presence of aortocoronary bypass graft - Type 2 diabetes mellitus without complications - Obesity, unspecified - termite exterminator (current) use of aspirin - Presence of coronary angioplasty implant and graft - Essential (primary) hypertension - Acquired absence of other specified parts of digestive tract - Leakage of indwelling urethral catheter, initial encounter - Other mechanical complication of indwelling urethral catheter, initial encounter - Balanitis - Hyperlipidemia, unspecified - Atherosclerotic heart disease of [place] coronary artery without angina pectoris - Other half-way (current) drug therapy - Allergy status to [...] Presence of aortocoronary bypass graft - Other exterminator (current) drug therapy - Acquired absence of other specified parts of digestive tract - Balanitis - Personal history of malignant neoplasm of prostate - Essential (primary) hypertension - Leakage of indwelling urethral catheter, initial encounter - Atherosclerotic heart disease of [place] coronary artery without angina pectoris 02/06/2019 20:05 [...] without esophagitis - Atherosclerotic heart disease of [place] coronary artery without angina pectoris - Presence of aortocoronary bypass graft - termite exterminator (current) use of aspirin - Balanitis - Other exterminator (current) drug therapy - termite exterminator (current) use of oral hypoglycemic drugs 09/12/2018 09:12 [facility] [place] TYPE: Emergency COMPLAINT: - CHEST PAIN/DIZZINESS DIAGNOSES: - termite exterminator (current) use of aspirin - Gastro-esophageal reflux disease without esophagitis - Allergy status to other drugs, medicaments and biological substances status - Obesity, unspecified - Personal history of nicotine dependence - termite exterminator (current) use of oral hypoglycemic drugs - Atherosclerotic heart disease of [place] coronary artery without angina pectoris - Dehydration - Other chest pain - Essential (primary) hypertension - Type 2 diabetes mellitus without complications - Other half-way (current) drug therapy INPATIENT VISIT TRACKING (12 MO.) No inpatient visits to display in this time frame [email or web address]
[2019-03-01] MEDS ORDERED: AMOXICILLIN500 MG (12:00)
--- NOTE | 2019-03-01 18:45 | EKG ---
[facility] [address] [facility] [place] [address] Signed Normal sinus rhythm Incomplete right bundle branch block Minimal voltage criteria for LVH, may be normal variant Inferior infarct (cited on or before 05-SEP-2016) Abnormal ECG When compared with ECG of 12-SEP-2018 09:19, No significant change was found Confirmed by DONTE BUTTS DO ([id number]) on 03/01/2019 6:45:37 PM Electronically Signed By: DONTE BUTTS DO 03/01/19 1845 PATIENT NAME: NOAH JUDDGERI WHYTE Electrocardiogram DATE OF : 35 PHYSICIAN: DONTE BUTTS DO REPORT #: [id number] REPORT IS CONFIDENTIAL AND NOT TO BE RELEASED WITHOUT AUTHORIZATION
== END 2019-03-01 16:00 | disposition short-term general hospital (02) ==
LOC: ED 11:17
DX: I63.9 Cerebral infarction, unspecified (principal); E78.5 Hyperlipidemia, unspecified; E11.9 Type 2 diabetes mellitus without complications; I25.10 Atherosclerotic heart disease of native coronary artery without angina pectoris; K21.9 Gastro-esophageal reflux disease without esophagitis; I10 Essential (primary) hypertension; E66.9 Obesity, unspecified; Z85.46 Personal history of malignant neoplasm of prostate; Z90.49 Acquired absence of other specified parts of digestive tract; Z95.5 Presence of coronary angioplasty implant and graft; Z95.1 Presence of aortocoronary bypass graft; Z79.84 Long term (current) use of oral hypoglycemic drugs; Z79.899 Other long term (current) drug therapy; Z79.82 Long term (current) use of aspirin
CPT/HCPCS: 70450; 70496; 70498; 71045; 80053; 84484; 85025; 85610; 85730; 93005; 93010; 99291; G0390; J2997; Q9967

== ENCOUNTER → 2019-03-23 | Emergency (ER) | payer MEDICARE, OTHER ==
[~2019-03-23] VITALS: Ht 172.7 cm; Wt 115.7 kg
[~2019-03-23] MED LIST changes: +AMOXICILLIN500 MG
--- OUTSIDE RECORDS SUMMARY | ~2019-03-23 | XMS | Clinical Summary ---
Demographics + + + | Address | [address] | | | [place] [address] | + + + | Home Phone | | + + + | Preferred Language | Unknown | + + + | Marital Status | | + + + | Christian Affiliation | Unknown | + + + | Race | Unknown | + + + | Ethnic Group | Unknown | + + + Author + + + | Author | [facility] | + + + | Organization | [facility] | + + + | Address | Unknown | + + + | Phone | Unavailable | + + + Support + + +---------+ + | Name | Relationship | Address | Phone | + + +---------+ + | Salas Martinez | ECON | Unknown | | + + +---------+ + Care Team Providers + +------+ + | Care Communication Manager Name | Role | Phone | + +------+ + | Angelito Maxwell MD | PP | | + +------+ + Allergies + [...] + + + + | Lisinopril | Cough | Low | 07/05/20 | | | | | | 12 | | + + + + + + | Metformin | Diarrhea | Low | 07/05/20 | | | | | | 12 | | + + + + + + Current Medications + + +--------+---------+------+------+-------+ | Prescription | Sig. | Disp. | Refills | Star | End | Statu | | | | | | t | Date | s | | | | | | Date | | | + + +--------+---------+------+------+-------+ | omeprazole | Take 40 mg by mouth | | | | | Activ | | (PRILOSEC) 40 MG | 2 (two) times daily. | | | | | e | | capsule | | | | | | | + + +--------+---------+------+------+-------+ | doxycycline | Take 50 mg by mouth | | | | | Activ | | (VIBRAMYCIN) 50 MG | daily. | | | | | e | | capsule | | | | | | | + + +--------+---------+------+------+-------+ | ropinirole | Take 3 mg by mouth 3 | | | | | Activ | | (REQUIP) 3 MG | (three) times | | | | | e | | tabletIndications: | daily. 3 mg in am, 6 | | | | | | | Restless Leg | mg at 1600, 6 mg at | | | | | | | Syndrome | bedtime. | | | | | | | | Indications: | | | | | | | | Restless Leg | | | | | | | | Syndrome | | | | | | + + +--------+---------+------+------+-------+ | aspirin 325 MG EC | Take 325 mg by mouth | | | | | Activ | | tablet | every evening. | | | | | e | + + +--------+---------+------+------+-------+ | | Take 25 mg by mouth | | | | | Activ | | hydrochlorothiazide | every morning. | | | | | e | | (HYDRODIURIL) 25 MG | | | | | | | | tablet | | | | | | | + + +--------+---------+------+------+-------+ | gabapentin | Take 100 mg by mouth | | | | | Activ | | (NEURONTIN) 100 MG | 2 (two) times | | | | | e | | capsule | daily. | | | | | | + + +--------+---------+------+------+-------+ | losartan (COZAAR) | Take 100 mg by mouth | | | | | Activ | | 100 MG tablet | every evening. | | | | | e | + + +--------+---------+------+------+-------+ | glimepiride | Take 4 mg by mouth 2 | | | | | Activ | | (AMARYL) 4 MG tablet | (two) times daily. | | | | | e | + + +--------+---------+------+------+-------+ | tamsulosin | Take 0.4 mg by mouth | | | | | Activ | | (FLOMAX) 0.4 MG | After dinner. | | | | | e | | capsule | | | | | | | + + +--------+---------+------+------+-------+ | acetaminophen | Take 1,000 mg by | | | | | Activ | | (TYLENOL) 500 MG | mouth 3 (three) | | | | | e | | tablet | times daily. | | | | | | + + +--------+---------+------+------+-------+ | cyanocobalamin | Take 1,000 mcg by | | | | | Activ | | (VITAMIN B-12) 1000 | mouth every morning. | | | | | e | | MCG tablet | | | | | | | + + +--------+---------+------+------+-------+ | Bismuth | Take 262 mg by mouth | | | | | Activ | | Subsalicylate | daily as needed. | | | | | e | | (KAOPECTATE) 262 MG | | | | | | | | TABS | | | | | | | + + +--------+---------+------+------+-------+ | metoprolol | 1 pill every AM, 2 | 90 | 11 | 07/3 | | Activ | | (LOPRESSOR) 25 MG | pills (50 mg) every | tablet | | 11/17 | | e | | tablet | evening | | | 18 | | | + + +--------+---------+------+------+-------+ | tolterodine | Take 4 mg by mouth | | | | | Activ | | (DETROL LA) 4 MG 24 | daily. | | | | | e | | hr capsule | | | | | | | + + +--------+---------+------+------+-------+ | UNABLE TO FIND | Med Name: colestipol | | | | | Activ | | | hydrochloride | | | | | e | + + +--------+---------+------+------+-------+ | loperamide | Take 2 mg by mouth 4 | | | | | Activ | | (IMODIUM) 2 MG | (four) times daily | | | | | e | | capsule | as needed for | | | | | | | | Diarrhea. | | | | | | + + +--------+---------+------+------+-------+ | pravastatin | Take 1 tablet by | 30 | 11 | 03/1 | 03/1 | Activ | | (PRAVACHOL) 40 MG | mouth nightly. | tablet | | 2/20 | 1/20 | e | | tablet | | | | 19 | 20 | | + + +--------+---------+------+------+-------+ | nitroGLYCERIN | Place 1 tablet under | 25 | 11 | 03/1 | | Activ | | (NITROSTAT) 0.4 MG | the tongue every 5 | tablet | | 2/20 | | e | | SL tablet | (five) minutes as | | | 19 | | | | | needed for Chest | | | | | | | | pain. | | | | | | + + +--------+---------+------+------+-------+ | doxazosin | Take 1 tablet by | 30 | 11 | 12/27 | 12/27 | Activ | | (CARDURA) 4 MG | mouth nightly. | tablet | | 12/18 | 11/17 | e | | tablet | | | | 19 | 20 | | + + +--------+---------+------+------+-------+ Active Problems + + + | Problem | Noted Date | + + + | Chest pain | 07/05/2012 | + + + | HTN (hypertension) | 07/05/2012 | + + + | DM type 2 (diabetes mellitus, type 2) | 07/05/2012 | + + + | Dyslipidemia | 07/05/2012 | + + + | GERD (gastroesophageal reflux disease) | 07/05/2012 | + + + | Morbid obesity (HCC) | 07/05/2012 | + + + | NSTEMI (non-ST elevated myocardial infarction) | 07/05/2012 | + + + | NSTEMI (non-ST elevated myocardial infarction) (HCC) | 07/05/2012 | + + + + + | Overview: NSTEMI | + + + +---+ | Coronary artery disease | | + +---+ + + | Overview: Multivessel, with 2 bypasses and 3 coronary stents | + + Encounters +--------+ + + + + | Date | Type | Specialty | Care Team | Description | +--------+ + + + + | 03/19/ | Documentati | | Yanni Sullivan, | | | 2018 | on Only | | MD | | +--------+ + + + + | 03/14/ | Documentati | | Mitchell Auguste DO | | | 2019 | on Only | | | | +--------+ + + + + | 01/16/ | Documentati | | Tori Umanzor Only | | 2019 | on Only | | BESSY Milligan | | +--------+ + + + + | 01/08/ | Documentati | | Nena Farias, | Other (Patient's | | 2019 | on Only | | [place] | blood sugar log | | | | | | [phone]) | +--------+ + + + + | 01/07/ | Office | | Henok Dumont, | Hypertension, | | 2019 | Visit | | MD | unspecified type | | | | | | (Primary Dx); | | | | | | Coronary artery | | | | | | disease involving | | | | | | [place] coronary | | | | | | artery of [place] | | | | | | heart with other | | | | | | form of angina | | | | | | pectoris ([facility]); S/P | | | | | | CABG x 3; S/P PTCA | | | | | | (percutaneous | | | | | | transluminal | | | | | | coronary | | | | | | angioplasty); NSTEMI | | | | | | (non-ST elevated | | | | | | myocardial | | | | | | infarction) ([facility]); | | | | | | Hyperlipidemia, | | | | | | unspecified | | | | | | hyperlipidemia type; | | | | | | Pedal edema; SOB | | | | | | (shortness of | | | | | | breath) on exertion | +--------+ + + + + from Last 3 Months Immunizations + + + + | Name | Dates Previously Given | Next Due | + + + + | Pneumococcal | 07/08/2012 | | | Polysaccharide | | | | 23-valent | | | + + + + Family History + + +------+ + | Medical History | Relation | Name | Comments | + + +------+ + | Seizures | Daughter | | | + + +------+ + | Restless Leg | Daughter | | | | Syndrome | | | | + + +------+ + | Hypertension | Father | | | + + +------+ + | Stroke | Father | | | + + +------+ + | Cancer | Mother | | breast CA | + + +------+ + | Diabetes type II | Mother | | | + + +------+ + | Restless Leg | Son | | | | Syndrome | | | | + + +------+ + + +------+ + + | Relation | Name | Status | Comments | + +------+ + + | Brother | | | unknown cause of | | | | (Age | | | | | 87) | | + +------+ + + | Brother | | Alive | | + +------+ + + | Daughter | | | seizure | | | | (Age | | | | | 44) | | + +------+ + + | Daughter | | Alive | | + +------+ + + | Father | | | HTN, CVA | | | | (Age | | | | | 77) | | + +------+ + + | Mother | | | breast cancer, DMII | | | | (Age | | | | | 79) | | + +------+ + + | Son | | Alive | | + +------+ + + Social History + +-------+ +--------+ [...] on file | | + + + Last Filed Vital Signs + + + + | Vital Sign | Reading | Time Taken | + + + + | Blood Pressure | 156/68 | 01/07/2019 10:37 AM PDT | + + + + | Pulse | 67 | 01/07/2019 10:37 AM PDT | + + + + | Temperature | 36.7 C (98.1 F) | 05/07/2018 11:56 AM PDT | + + + + | Respiratory Rate | 18 | 05/07/2018 2:43 PM PDT | + + + + | Oxygen Saturation | 94% | 01/07/2019 10:37 AM PDT | + + + + | Inhaled Oxygen | - | - | | Concentration | | | + + + + | Weight | 116.2 kg (256 lb 3.2 | 01/07/2019 10:37 AM PDT | | | oz) | | + + + + | Height | 172.7 cm (5' 8") | 01/07/2019 10:37 AM PDT | + + + + | Body Mass Index | 38.96 | 01/07/2019 10:37 AM PDT | + + + + Plan of Treatment +--------+ + + + + | Date | Type | Specialty | Care Team | Description | +--------+ + + + + | 03/25/ | Documentati | | | | | 2019 | on Only | | | | +--------+ + + + + | 04/04/ | Office | | Mehul Cash ARNP | | | 2019 | Visit | | [address] | | | | | | [place] [address] | | | | | | [phone] | | | | | | | | +--------+ + + + + | 05/20/ | Office | | Henok Dumont, | | | 2018 | Visit | | MD [address] | | | | | | [place], | | | | | | [place] [address] | | | | | | [phone] | | | | | | | | +--------+ + + + + | 06/25/ | Documentati | | | | | 2019 | on Only | | | | +--------+ + + + + | 09/24/ | Documentati | | | | | 2019 | on Only | | | | +--------+ + + + + | 12/24/ | Documentati | | | | | 2020 | on Only | | | | +--------+ + + + + + + + + + | Health Maintenance | Due Date | Last Done | Comments | + + + + + | Diabetic Eye Exam | | | | | | 5 | | | + + + + + | Diabetic Foot Exam | | | | | | 5 | | | + + + + + | Microalbumin | | | | | Screening | 5 | | | + + + + + | Vaccine: | | | | | Dtap/Tdap/Td (1 - | 4 | | | | Tdap) | | | | + + + + + | Vaccine: Zoster (1 | | | | | of 2) | 5 | | | + + + + + | Hemoglobin A1c | | 07/10/2012 | | | | 2 | | | + + + + + | Vaccine: Influenza | | | | | (Season Ended) | 9 | | | + + + + + | Vaccine: | Completed | 02/17/2016, 07/08/2012 | | | Pneumococcal 65+ | | | | | Low/Medium Risk | | | | + + + + + Implants + +------+-------+ +--------+--------+--------+ | Implanted | Type | Area | Manufacture | Device | Expira | Model | | | | | r | | tion | / | | | | | | Identi | Date | Serial | | | | | | fier | | / Lot | + +------+-------+ +--------+--------+--------+ | Pacing Wire Dual | | N/A: | MEDLINE | | 09/27/ | 030-00 | | 030-005 - | | Heart | | | 2015 | 5 | | [id number]: Qty: 1 on | | | | | | [id number] | | 07/09/2012 by Davi, | | | | | | 5 /151 | | MD Lauren | | | | | | | + +------+-------+ +--------+--------+--------+ Procedures + +--------+ + + + | Procedure Name | Priori | Date/Time | Associated Diagnosis | Comments | | | ty | | | | + +--------+ + + + | EKG STANDARD 12 LEAD | Routin | 01/07/2019 | Hypertension, | Results for this | | | e | 10:43 AM | unspecified type | procedure are in the | | | | PDT | | results section. | + +--------+ + + + from Last 3 Months Results EKG STANDARD 12 LEAD (01/07/2019 10:43 AM) + + + + + | Component | Value | Ref Range | Performed At | + + + + + | Ventricular Rate | 62 | BPM | [facility] | + + + + + | Atrial Rate | 62 | BPM | [facility] | + + + + + | P-R Interval | 192 | ms | [facility] | + + + + + | QRS Duration | 112 | ms | [facility] | + + + + + | Q-T Interval | 422 | ms | [facility] | + + + + + | QTC Calculation | 428 | ms | [facility] | | (Bezet) | | | | + + + + + | Calculated P [place] | 33 | degrees | [facility] | + + + + + | Calculated R [place] | 9 | degrees | [facility] | + + + + + | Calculated T [place] | 27 | degrees | [facility] | + + + + + | Diagnosis | Normal sinus | | [facility] | | | rhythmIncomplete right | | | | | bundle branch | | | | | blockBorderline ECGWhen | | | | | compared with ECG of | | | | | 15-JAN-2018 14:28,No | | | | | significant change was | | | | | foundPlease refer to | | | | | Providers office visit | | | | | note for Providers | | | | | Interpretation.Confirmed | | | | | by [facility] [place] Read Only, | | | | | [facility] Enrique ([id number]), | | | | | food editor Korey Deluna | | | | | ([id number]) on 01/07/2019 | | | | | 3:14:57 PM | | | + + + + + + + + + + | Performing | Address | City/State/Zipcode | Phone Number | | Organization | | | | + + + + + | [facility] | [address] | [facility] [place] [address] | | + + + + + from Last 3 Months Insurance + +--------+ +------+-------+ + | Payer | Benefi | Subscriber | Type | Phone | Address | | | t Plan | ID | | | | | | / | | | | | | | Group | | | | | + +--------+ +------+-------+ + | MEDICARE | MEDICA | [id number] | | | [address] | | | RE | | | | [place] [phone] | | | IP-OP | | | | | + +--------+ +------+-------+ + | [employer]AN | ODS - | [id number] | | | | | | GENERI | | | | | | | C | | | | | + +--------+ +------+-------+ + + +--------+ +--------+ + + | Guarantor Name | Accoun | Relation to | Date | Phone | Billing Address | | | t Type | Patient | of | | | | | | | | | | + +--------+ +--------+ + + | DEEPALI MARTINEZ | Person | Self [birth year] Home: | [address] | | | al/Fam | | [phone] | [phone] [address] [place] | | | [place] | | | [phone] | + +--------+ +--------+ + +
--- OUTSIDE RECORDS SUMMARY | ~2019-03-23 | XMS | Encounter Summary ---
Demographics + + + | Address | [address] | | | [place] [address] | + + + | Home Phone | | + + + | Preferred Language | Unknown | + + + | Marital Status | | + + + | Jewish Affiliation | Unknown | + + + | Race | Unknown | + + + | Ethnic Group | Unknown | + + + Author + + + | Author | [facility] | + + + | Organization | [facility] | + + + | Address | Unknown | + + + | Phone | Unavailable | + + + Support + + +---------+ + | Name | Relationship | Address | Phone | + + +---------+ + | Salas Martinez | ECON | Unknown | | + + +---------+ + Care Team Providers + +------+ + | Care Malware Analyst Name | Role | Phone | + +------+ + | Angelito Maxwell MD | PCP | | + +------+ + Encounter Details +--------+ + + + + | Date | Type | Department | Care Team | Description | +--------+ + + + + | 03/14/ | Documentati | [facility] | Mitchell Auguste DO | | | 2019 | on Only | [facility] | [address] | | | | | [address] | [place] | | | | | [place] | [address] | | | | | [address] | | | | | | [phone] | | | +--------+ + + + [...] + as of this encounter Progress Notes [facility] - 03/14/2019 1:37 PM PDTReferralin this encounter Plan of Treatment +--------+ + + + + | Date | Type | Specialty | Care Team | Description | +--------+ + + + + | 03/25/ | Documentati | Cardiology | | | | 2019 | on Only | | | | +--------+ + + + + | 04/04/ | Office | Orthopedic Surgery | Mehul Cash ARNP | | | 2019 | Visit | | [address] | | | | | | [place] [address] | | | | | | [phone] | | | | | | | | +--------+ + + + + | 05/20/ | Office | Cardiology | Henok Dumont, | | | 2018 | Visit | | MD [address] | | | | | | [place], | | | | | | [place] [address] | | | | | | [phone] | | | | | | | [...]
--- OUTSIDE RECORDS SUMMARY | ~2019-03-23 | XMS | Encounter Summary ---
Demographics + + + | Address | [address] | | | [place] [address] | + + + | Home Phone | | + + + | Preferred Language | Unknown | + + + | Marital Status | | + + + | Yarsani Affiliation | Unknown | + + + | Race | Unknown | + + + | Ethnic Group | Unknown | + + + Author + + + | Author | [facility] | + + + | Organization | [facility] | + + + | Address | Unknown | + + + | Phone | Unavailable | + + + Support + + +---------+ + | Name | Relationship | Address | Phone | + + +---------+ + | Salas Martinez | ECON | Unknown | | + + +---------+ + Care Team Providers + +------+ + | Care Electrotype Caster Name | Role | Phone | + +------+ + | Angelito Maxwell MD | PCP | | + +------+ + Reason for Visit + + + | Reason | Comments | + + + | Follow-up | 6 months | + + + Encounter Details +--------+---------+ + + + | Date | Type | Department | Care Team | Description | +--------+---------+ + + + | 01/07/ | Office | [facility] | Henok Dumont, | Hypertension, | | 2019 | Visit | Cardiology Fazal | MD [address] | unspecified type | | | | [address] | [place], | (Primary Dx); | | | | [facility] [address] | [place] [address] | Coronary artery | | | | [place] [address] | [phone] | disease involving | | | | [phone] | | mcgrath coronary | | | | | | artery of mcgrath | | | | | | heart with other | | | | | | form of angina | | | | | | pectoris ([facility]); S/P | | | | [...] | | | | | | infarction) ([facility]); | | | | | | Hyperlipidemia, | | | | | | unspecified | | | | | | hyperlipidemia type; | | | | | | Pedal edema; SOB | | | | | | (shortness of | | | | | | breath) on exertion | +--------+---------+ + + + Social History + +-------+ [...] + + + as of this encounter Last Filed Vital [...] AM PDT | + + + + in this encounter Progress Notes Henok Dumont MD - 01/07/2019 10:30 AM PDTFormatting of this note may be different from the original. Subjective: Patient ID: Feliz Martinez is a 83 y.o. male. HPI The following portions of the patient's history were reviewed and updated as appropriate an d is available elsewhere in the record: allergies, current medications, past family history, past medical history, past social history, past surgical history and problem list. Mr. Martinez, a former patient of Geoffrey Sainz M.D., came to the office today for a follo w-up visit for his extensive history of CAD, with 2 previous CABG surgeries, intracoronary stenting, and multiple other medical problems that I reviewed in detail. He has been "up an d down", feels well some days, but on the other days he is more "tired... Some days are more depressing than others", attributed to his back pain, which is chronic. He has significant dyspnea on exertion, cannot walk around the block before it stops him. This is unchanged from when I saw him several months ago. This is quite different from his previous anginal eq uivalent of "heavy chest pressure", which he has not been experiencing lately. He also has significant pedal edema, right greater than left, probably due to venous harvest's for his 2 bypass surgeries, as he had a total of 5 vein grafts. He had a recent echocardiogram showi ng normal LV systolic function and only mild diastolic dysfunction, with no clinically signi ficant valvular abnormalities, so this is clearly not the cause, and there is no reason for him to have congestive heart failure. He has no history of significant luminary abnormaliti es. He underwent a Lexiscan Cardiolite stress test 01/29/18, which was technically difficult, but abnormal, a relatively high risk study, showing a fairly large area of moderate reversi ble ischemia in the inferior, inferolateral, lateral and anterolateral segments, with normal LV systolic function, EF of 64%. Diagnostic Cardiac Catheterization 05/07/18 revealed sever e 3 vessel CAD, with an occluded left main, heavily stented right coronary with multiple, se heide lesions, but all 4 grafts were patent. He is adequately revascularized. His pedal edema is improved off Amlodipine, but his BP is still elevated. His HR is in the 60s, and I do not think that I can increase his metoprolol dose any further. He will be st arted on doxazosin 4 mg hs. His pain is probably elevating his blood pressure. He experien dennise a fair amount of relief with his last KLAUS, but the effects have now worn off, and he memo l be seen by his pain management physician soon, and is thinking of a radiofrequency ablatio n. Meanwhile, his blood sugars are quite elevated related, frequently greater than 200, and he will see his PCP regarding this.. From a cardiac standpoint, he appears to be stable ot herwise. He had stopped his atorvastatin due to side effects, and I started him on pravasta tin 40 mg daily. He will need a lipid panel and CMP prior to the next appointment for in 4 months. Review of Systems CONSTITUTIONAL: Morbid obesity. No recent significant weight change, denies recent fever, chills, night sweats, significant fatigue NEUROLOGIC: No history of CVA, TIA, migraines, seizures, syncope. He has Diabetic Periphe ral Neuropathy with Numbness in his feet and fingers, no other paresthesias, dizziness, ligh theadedness. He developed Memory Loss since his second CABG operation, mostly recovered. EYES: No amaurosis, diplopia, recent visual changes or glaucoma ENT: Bilateral hearing loss, "constant" Tinnitus, denies epistaxis, dysphagia ENDOCRINE: He has type II Diabetes mellitus. No history of thyroid disorders or other endo crine problems. Low Testosterone, Gynecomastia. No excessive hunger, thirst. PULMONARY/SLEEP: He has Dyspnea on exertion, walking up stairs or around the block. He de nies orthopnea, paroxysmal nocturnal dyspnea. No history of asthma, emphysema. He had Pneu monia 2015. He has RLS. Denies significant snoring, daytime somnolence. Sleep is not refr eshing (sleeps in 1.5-2 hour "blocks" due to RLS and nocturia. CARDIOVASCULAR: Denies chest pain, pressure or discomfort. He has an extensive history of CAD, NSTEMI 07/05/12 (angina was "heavy pressure on my chest"), 3-vessel CABG 07/31/04 (ROSA>L AD was patent, occluded SVGs to OM2 and the distal RCA seen on cardiac catheterization 08/23), stenting of the mid RCA 08/23/07, and a staged stenting of the left main into the left circumflex 09/06/07, followed by repeat 3 vessel CABG 07/11/12, with vein grafts to the PDA, PLV and OM branch. No history of heart failure. No history of cardiac arrhythmias. No palpit ations. He has a heart Murmur, history of rheumatic fever. He has a history of essential H ypertension, Hyperlipidemia. He has bilateral Pedal Edema, Right > Left, has 0.5 block Samanta dication symptoms, Left > Right. No h/o an AAA. -- Cardiac Cath (05/07/18): LVEDP 23, no gradient across the AoV. LM-occluded. RCA-multipl e stents, severe disease. ROSA>LAD-patent, mild-moderate stenosis distal to the anastomosis. SVG>OM-patent, 30% prox stenosis. SVG>Left PLV-normal. SVG>Left PDA-normal. -- Lexiscan Cardiolite stress test (01/29/18): TDS, large, moderate intensity reversible isch emic defect in the inferior, inferolateral, lateral and anterolateral segments (LCx territor y), EF 64% -- Echo (10/04/17): EF 60-65%, grade 1 diastolic dysfunction, normal RV size and function, m ild bi-AE, mild-moderate TR, PI, RVSP 31, aortic root dilated 4.0 cm -- 3 vessel CABG (07/11/12): SVG>PDA, SVG>PLV, SVG>OM -- Staged PCI (09/06/07): 3.5x16mm Taxus LOLA in the LM extending into the LCx -- Cardiac Cath (08/23/07): EF 65%, LVEDP 6, prox LM-70-80%, LAD-occluded proximally after D1. LCx-ostial 90%, the rest of the vessel was diffusely diseased, OM 2-occluded. RCA-medi um, codominant, ostial 70%, proximal-mid 70-80% > 3.0 x 16 mm Taxus LOLA, patent ROSA, occlud ed SVGs to OM, distal RCA -- Carotid U/S (07/09/12): Proximal MAICOL < 50%, no significant disease in the LICA -- 3-vessel CABG (07/31/04): ROSA>LAD - patent, occluded SVG>OM, occluded SVG>distal RCA GASTROINTESTINAL: GERD. 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 He has a cedrick te h/o PUD, denies melena, hematochezia, hepatitis. RENAL/: No history of kidney disease. No dysuria, hematuria, urinary urgency, hesitancy , but has urinary incontinence following radiation treatment for prostate cancer. He has No cturia (4x per night) HEMATOLOGY/ONCOLOGY: No h/o bleeding disorders, DVT, PE. Denies easy bruisability or ble eding. No history of anemia, transfusions. He has a history of Prostate Cancer. MUSCULOSKELETAL: No myalgias, has has an L5 compression fracture, L2-3 disc bulging, Osteo arthritis with low back arthralgias. No history of rheumatologic or autoimmune diseases. CUTANEOUS: No rashes, pruritus, lesions. PSYCHIATRIC: He has a prior history of Depression, denies anxiety or other psychiatric pro blems. Past Medical History Diagnosis Date Coronary artery disease Multivessel, with 2 bypasses and 3 coronary stents Diabetes mellitus type II 2007 with peripheral Neuropathy GERD (gastroesophageal reflux disease) Hyperlipidemia Hypertension Neuropathy NSTEMI (non-ST elevated myocardial infarction) ([facility]) 07/05/2012 NSTEMI Occlusion of carotid artery < 50% MAICOL stenosis 2011 Prostate cancer ([facility]) 1994 radiation therapy 1995 RLS (restless legs syndrome) Past Surgical History Procedure Laterality Date CARDIAC CATHETERIZATION CARPAL TUNNEL RELEASE Right 12/20/2017 CATARACT EXTRACTION Bilateral removal CHOLECYSTECTOMY 2006 COLONOSCOPY CORONARY ANGIOPLASTY WITH STENT PLACEMENT 2006 3.5x16 Taxus LOLA - LM into LCx (09/06/07); 3.0x16 Taxus LOLA mid RCA (08/23/17) CORONARY ARTERY BYPASS GRAFT CORONARY ARTERY BYPASS GRAFT N/A 07/09/2012 Procedure: CABG - REDO; Surgeon: Lauren Tomlinson MD; Location: [facility] MAIN OR; Service: C ardiac; Laterality: N/A; KATHERIN, Sternotomy, Right EVH, Right SVG steroid injec TONSILLECTOMY Family History Problem Relation Age of Onset Cancer Mother breast CA Diabetes type II Mother Stroke Father Hypertension Father Seizures Daughter Restless Leg Syndrome Daughter Restless Leg Syndrome Son Social History Substance Use Topics Smoking status: Former Smoker Packs/day: 0.25 Years: 4.00 Quit date: 1959 Smokeless tobacco: Never Used Alcohol use 2.4 oz/week 4 Cans of beer per week Allergies Allergen Reactions Atorvastatin Other (See Comments) Myalgia Ibuprofen Other (See Comments) Told by physician not to take this medication due to his heart condition. Lisinopril Cough Metformin Diarrhea Current Outpatient Prescriptions: acetaminophen (TYLENOL) 500 MG tablet, Take 1,000 mg by mouth 3 (three) times daily., Disp: , Rfl: aspirin 325 MG EC tablet, Take 325 mg by mouth every evening., Disp: , Rfl: Bismuth Subsalicylate (KAOPECTATE) 262 MG TABS, Take 262 mg by mouth daily as needed., Disp: , Rfl: cyanocobalamin (VITAMIN B-12) 1000 MCG tablet, Take 1,000 mcg by mouth every morning., Disp: , Rfl: doxycycline (VIBRAMYCIN) 50 MG capsule, Take 50 mg by mouth daily. , Disp: , Rfl: gabapentin (NEURONTIN) 100 MG capsule, Take 100 mg by mouth 2 (two) times daily., Disp : , Rfl: glimepiride (AMARYL) 4 MG tablet, Take 4 mg by mouth 2 (two) times daily., Disp: , Rfl : hydrochlorothiazide (HYDRODIURIL) 25 MG tablet, Take 25 mg by mouth every morning., Di sp: , Rfl: loperamide (IMODIUM) 2 MG capsule, Take 2 mg by mouth 4 (four) times daily as needed f or Diarrhea., Disp: , Rfl: losartan (COZAAR) 100 MG tablet, Take 100 mg by mouth every evening., Disp: , Rfl: metoprolol (LOPRESSOR) 25 MG tablet, 1 pill every AM, 2 pills (50 mg) every evening, D isp: 90 tablet, Rfl: 11 nitroGLYCERIN (NITROSTAT) 0.4 MG SL tablet, Place 0.4 mg under the tongue every 5 (fiv e) minutes as needed for Chest pain., Disp: , Rfl: omeprazole (PRILOSEC) 40 MG capsule, Take 40 mg by mouth 2 (two) times daily., Disp: , Rfl: oxybutynin (DITROPAN-XL) 10 MG 24 hr tablet, Take 10 mg by mouth daily., Disp: , Rfl: 0 ropinirole (REQUIP) 3 MG tablet, Take 3 mg by mouth 3 (three) times daily. 3 mg in am, 6 mg at 1600, 6 mg at bedtime. Indications: Restless Leg Syndrome, Disp: , Rfl: tamsulosin (FLOMAX) 0.4 MG capsule, Take 0.4 mg by mouth After dinner., Disp: , Rfl: tolterodine (DETROL LA) 4 MG 24 hr capsule, Take 4 mg by mouth daily., Disp: , Rfl: UNABLE TO FIND, Med Name: colestipol hydrochloride, Disp: , Rfl: atorvastatin (LIPITOR) 40 MG tablet, Take 40 mg by mouth daily. , Disp: , Rfl: No current facility-administered medications for this visit. Facility-Administered Medications Ordered in Other Visits: aminocaproic acid (AMICAR) injection, , , PRNJorden MD, 10 g at 07/09/12 121 1 ceFAZolin (ANCEF) injection, , Intravenous, PRN, Jorden Lomeli MD, 1 g at 07/09/12 17 19 dexmedetomidine in NS 4 mcg/mL (PRECEDEX) 4 mcg/mL infusion, , , Continuous PRN, Suki Lomeli MD, Last Rate: 11.3 mL/hr at 07/09/12 1730, 0.4 mcg/kg/hr at 07/09/12 1730 EPINEPHrine in NS 32 mcg/mL infusion, , , Continuous PRN, Jorden Lomeli MD, Last Rate : 7.5 mL/hr at 07/09/12 1654, 4 mcg/min at 07/09/12 1654 etomidate (AMIDATE) injection, , , PRNJorden MD, 16 mg at 07/09/12 1046 fentaNYL (SUBLIMAZE) injection, , , PRNJorden MD, 500 mcg at 07/09/12 1148 heparin (porcine) injection, , , PRJorden Morales MD, 45,000 Units at 07/09/12 1255 insulin regular 1 unit/mL (HUMULIN R,NOVOLIN R) infusion, , , Continuous PRNJorden MD, Last Rate: 6 mL/hr at 07/09/12 1602, 6 Units/hr at 07/09/12 1602 lidocaine 1 % injection, , , PRJorden Morales MD, 50 mg at 07/09/12 1046 midazolam (VERSED) injection, , , PRNJorden MD, 3 mg at 07/09/12 1608 protamine injection, , , PRJorden Morales MD, 450 mg at 07/09/12 1647 rocuronium (ZEMURON) injection, , , PRJorden Morales MD, 100 mg at 07/09/12 1046 sodium chloride 0.9 % infusion, , , Continuous PRN, Jorden Lomeli MD vecuronium (NORCURON) injection, , , PRN, Jorden Lomeli MD, 10 mg at 07/09/12 1403 Objective: Physical Exam BP 156/68 (BP Location: Right upper arm, Patient Position: Sitting) | Pulse 67 | Ht 1.727 m (5' 8") | Wt 116.2 kg (256 lb 3.2 oz) | SpO2 94% | BMI 38.96 kg/m GENERAL: Well developed, well nourished, moderately obese elderly male, in no di stress. Appears approximately stated age. He spent our interview standing, turning his hip s from side to side due to back pain. HEENT: Normocephalic, atraumatic. EYES: Healed iridectomies. PERRL, sclerae anicteric, no xanthelsasmas MOUTH: Oral mucosae moist, dentition adequate, no lesions noted NECK: No JVD, lymphadenopathy, thyromegaly, bruits. Carotid pulses are 2+ bilaterally LUNGS: Clear bilaterally, with no rales, rhonchi or wheezing noted, respirations unlabored HEART: Well-healed sternotomy incision. Nondisplaced PMI, regular rate and rhythm, S1, S2 normal. No murmurs, rubs or gallops noted. ABDOMEN: Obese. Soft, nontender, no organomegaly, masses or bruits. Bowel sounds are nor mal in all 4 quadrants. The abdominal aortic pulsation is not palpable. EXTREMITIES: Healed bilateral venous harvest incisions. Trace + pedal edema bilaterally. Radial pulses 2+ bilaterally. Femoral pulses are 2+ bilaterally without bruits. DP pulses are 2+ bilaterally, PT pulses were harder to palpate due to edema. SKIN: Warm and dry, capillary refill is normal, no lesions. NEUROLOGIC: Awake, alert and oriented x 3. No focal motor deficits. PSYCHIATRIC: Appropriate, affect appears normal EKG: Normal sinus rhythm, rate 62, incompl ete right bundle branch block, otherwise normal tracing EKG: Normal sinus rhythm, incomplete right bundle branch block, otherwise normal tracing Assessment and Plan: Feliz was seen today for follow-up. Hypertension, unspecified type - Electrocardiogram, 12-lead Coronary artery disease involving mcgrath coronary artery of mcgrath heart with other form of angina pectoris ([facility]) S/P CABG x 3 S/P PTCA (percutaneous transluminal coronary angioplasty) NSTEMI (non-ST elevated myocardial infarction) ([facility]) Hyperlipidemia, unspecified hyperlipidemia type Pedal edema SOB (shortness of breath) on exertion in this encounter Plan of Treatment +--------+ + [...] [address] | | | | | | [place] [address] | | | | | | [phone] | | | | | | | | +--------+ + + + + | 05/20/ | Office | Cardiology | Henok Dumont, | | | 2018 | Visit | | MD [address] | | | | | | [place], | | | | | | [place] [address] | | | | | | [phone] | | | | | | | [...] + + + as of this encounter Procedures + +--------+ + + + | [...] section. | + +--------+ + + + in this encounter Results EKG STANDARD 12 LEAD (01/07/2019 10:43 [...] + + + + | Calculated P [place] | 33 | degrees | [facility] | + + + + + | Calculated R [place] | 9 | degrees | [facility] | + + + + + | Calculated T [place] | 27 | degrees | [facility] | + + + + + | Diagnosis | Normal sinus | | [facility] | | | rhythmIncomplete right | [...] | | | | | by [facility] [place] Read Only, | | | | | [facility] Enrique ([id number]), | | | | | editorial writer Korey Deluna | | | | | ([id number]) on 01/07/2019 | | | | | 3:14:57 PM | | | + + + + + + + + + + | Performing | Address | City/State/Zipcode | Phone Number | | Organization | | | | + + + + + | [facility] | [address] | [place] [address] | | + + + + + in this encounter Visit Diagnoses + + | Diagnosis | + + | Hypertension, unspecified type - Primary | + + | Coronary artery disease involving mcgrath coronary artery of mcgrath heart with other | | form of angina pectoris (HCC) | + + | S/P CABG x 3 | + + | Postsurgical aortocoronary bypass status | + + | S/P PTCA (percutaneous transluminal coronary angioplasty) | + + | Postsurgical percutaneous transluminal coronary angioplasty status | + + | NSTEMI (non-ST elevated myocardial infarction) (HCC) | + + | Acute myocardial infarction, subendocardial infarction, episode of care unspecified | + + | Hyperlipidemia, unspecified hyperlipidemia type | + + | Pedal edema | + + | Edema | + + | SOB (shortness of breath) on exertion | + + | Shortness of breath | + +
--- OUTSIDE RECORDS SUMMARY | ~2019-03-23 | XMS | Encounter Summary ---
Demographics + + + | Address | [address] [facility] [address] | | | [place] [address] | + + + | Home Phone | | + + + | Preferred Language | Unknown | + + + | Marital Status | | + + + | Moravian Affiliation | Unknown | + + + | Race | Unknown | + + + | Ethnic Group | Unknown | + + + Author + + + | Author | [facility] | | | and Rezaana | + + + | Organization | [facility] | | | and Rezaana [...] Team Providers + +------+ + | Care Blender Snuff Name | Role | Phone | + [...] | | stenosis | [address] | [place] | | | | | Lumbar | [address] | [address] | | | | | stenosis | [place], | [place], [place] | | | | | with | [place] [address] | [address] Phone: | | | | | neurogenic | Phone: | [phone] | | | | | claudication | [phone] | Fax: | | | | | Lumbar | Fax: | [phone] | | | | | radiculopath | [phone] | | | | | | y [...] | | | | | stenosis | [address], | [place], [place] | | | | | with | [place] [address] | [address] Phone: | | | | | neurogenic | Phone: | [phone] | | | | | claudication | [phone] | Fax: | | | | | Lumbar | Fax: | [phone] | | | | | radiculopath | [phone] | | | | | | y | | | | | | | Procedures | | | | | | | HIM | | | | | | | 03/12/2019 | | | + + + + + + + Reason for Visit + + + | Reason | Comments | + + + | Follow-up | Injection: bilateral L5-S1 TFESI 11/25/18 | + + + Encounter Details +--------+---------+ + + + | Date | Type | Department | Care Team | Description | +--------+---------+ + + + | 02/04/ | Office | [facility] | Jose Martinez, | Lumbar radiculopathy | | 2019 | Visit | PHYSIATRY [address] | PA-C [address] | (Primary Dx); | | | | [place], | [address] [place] | Lumbar foraminal | | | | [place] [address] | [place] [address] | stenosis; Lumbar | | | | [phone] | [phone] | stenosis with | | | | [...] of the procedure you must provide a dedicated intermodal truck driver to take you home. For [...] press against a nerve. Date Last Reviewed: 12/27/[id number] [employer]. [address] [place] [address], [place] [address]. All righ ts reserved. This information is not intended as a substitute for professional medical care. Always follow your healthcare professional's instructions. documented in this encounter Progress Notes Jose Martinez PA-C - 02/04/2019 1040 PDTFormatting of this note might be different from th e original. Jose Martinez PA-C [address] [facility] [place] [place], [place] [id number] FAX: PHYSICAL MEDICINE AND REHABILITATION H&P CHIEF [...] Dependent edema Due to inactivity Depression Diabetes ([facility]) Gastric reflux Heart disease Hereditary and idiopathic neuropathy, unspecified High cholesterol History of blood transfusion History of fracture Pars interarticularis History of ulceration Ulcer Hypertension Left atrial enlargement Lumbago Lumbar spondylosis Murmur Echo 09/2017 Neuropathy Feet Obstructive sleep apnea (adult) (pediatric) Other spondylosis, lumbar region Peripheral neuropathy Pneumonia Prostate cancer ([facility]) 1994 Radiation: 10/1995-12/1995, [facility] Right atrial enlargement Type 2 diabetes mellitus without complication ([facility]) PAST SURGICAL HISTORY: Past Surgical History: Procedure Laterality Date CARPAL TUNNEL RELEASE Right 12/17/2017 CATARACT REMOVAL Bilateral CORONARY ARTERY BYPASS GRAFT 07/31/2004 [facility] CORONARY ARTERY BYPASS GRAFT 07/09/2012 [facility] GALLBLADDER SURGERY 04/19/2007 Dr. Vinson, [facility] PROSTATE SURGERY 1994 Prostate Cancer CURRENT [...] has no apparent deficits with short or dedicated intermodal truck driver memory. He has appropriate fund of knowledge [...] PT (multiple sessions over the years) and career placement services counselor. Unfortunately Feliz Martinez continues to have significant [...] Martinez today with the majority of time [place] counselling the patient on his diagnosis, options for his care, and coordinating his care. ELECTRONICALLY EDITED AND SIGNED BY: Jose Martinez PA-C, 02/04/2019 documented in this encou nter Plan of Treatment + +--------+ + + | Name | [...] + +--------+ + + | Dr. Auguste_Neurosurgery [facility] | Routin | Lumbar foraminal | Ordered: 02/04/2019 | | | e | stenosis Lumbar | | | | | stenosis with | | | | | neurogenic | | | | | claudication Lumbar | | | | | radiculopathy | | + +--------+ + + | NEUROPSYCH_ Dr. Torres | Routin | Lumbar foraminal [...]
--- OUTSIDE RECORDS SUMMARY | ~2019-03-23 | XMS | Clinical Summary ---
Demographics + + + | Address | [address] [facility] [address] | | | [place] [address] | + + + | Home Phone | | + + + | Preferred Language | Unknown | + + + | Marital Status | | + + + | Zoroastrian Affiliation | Unknown | + + + | Race | Unknown | + + + | Ethnic Group | Unknown | + + + Author + + + | Author | [facility] | | | and Rezaana | + + + | Organization | [facility] | | [...] Team Providers + +------+ + | Care Traffic Assistant Name | Role | Phone | [...] | | | + + + +---------+------+------+-------+ Active Problems [...] X[place] 3 [place] | | 2017Entered By: JUANCARLOS HILL LComment: [...] 2017 | | Entered By: JUANCARLOS HILL | | Comment: urinary incontinence | + + + + + | Chronic diarrhea | 04/10/2018 | + + + + + | Overview: No comments entered for problem. | + + + + + | Coronary arteriosclerosis | 04/10/2018 | + + + + + | Overview: Sep 28, 2017Entered By: JUANCARLOS HILL LComment: | | 09/25/2016 - letter from [facility]; poss exposure NTM in bypass Nov | | 2016Entered By: JUANCARLOS HILL LComment: 2003 [...] | 07/05/2012 | + + + Encounters +--------+---------+ + + + | Date | [...] | claudication | +--------+---------+ + + + from Last 3 Months [...] 1034 PDT | + + + + Plan of Treatment + + + + + | Health [...] | | + + + + + Results Not on filefrom Last 3 Months Insurance + +--------+ +--------+ [...] + +--------+ | MEDICARE | MEDICA | [id number] | | [phone] | | Medica | | | RE | | 000-Pr | 5 | | re | | | PART A | | esent | | | | | | AND B | | | | | | + +--------+ +--------+ + +--------+ | MODA | MODA | [id number] | 10/29/19 | [phone] | [address] | [place] | | | HEALTH | | 14-Pre | 9 | [address] | ity | | | MDCR | | sent | | [place], | | | | [place] | | | | [place] [address] | | + +--------+ +--------+ + +--------+ [...] 10/16/ | | [address] | | | al/Fam | | 1935 | [phone] | [address] [place] | | | rosey | | | 5 (Home) | [address] | + +--------+ +--------+ + + Advance Directives Patient has advance care planning documents on file. For more information, please contact:[facility] [place] [address]
--- OUTSIDE RECORDS SUMMARY | ~2019-03-23 | XMS | Encounter Summary ---
Demographics + + + | Address | [address] | | | [place] [address] | + + + | Home Phone | | + + + | Preferred Language | Unknown | + + + | Marital Status | | + + + | Lutheran Affiliation | Unknown | + + + | Race | Unknown | + + + | Ethnic Group | Unknown | + + + Author + + + | Author | [facility] | + + + | Organization | [facility] | + + + | Address | Unknown | + + + | Phone | Unavailable | + + + Support + + +---------+ + | Name | Relationship | Address | Phone | + + +---------+ + | Salas Martinez | ECON | Unknown | | + + +---------+ + Care Team Providers + +------+ + | Care Merchandise Flow Team Leader Name | Role | Phone | + [...] [place] | | | | | | [address] | | | | | | [phone] | | | +--------+ + + + [...] | | | | | [place] [address] | | | | | | [phone] | | | | | | | | +--------+ + + + + | 05/20/ | Office | Cardiology | Henok Dumont, | | | 2018 | Visit | | MD [address] | | | | | | [place], | | | | | | [place] [address] | | | | | | [phone] | | | | | | | [...]
--- OUTSIDE RECORDS SUMMARY | ~2019-03-23 | XMS | Encounter Summary ---
Demographics + + + | Address | [address] | | | [place] [address] | + + + | Home Phone | | + + + | Preferred Language | Unknown | + + + | Marital Status | | + + + | Sabianist Affiliation | Unknown | + + + | Race | Unknown | + + + | Ethnic Group | Unknown | + + + Author + + + | Author | [facility] [employer] [facility] | + + + | Organization | [facility] [employer] [facility] | + + + | Address | Unknown | + + + | Phone | Unavailable | + + + Support + + +---------+ + | Name | Relationship | Address | Phone | + + +---------+ + | Salas Martinez | ECON | Unknown | | + + +---------+ + Care Team Providers + +------+ + | Care Cap Blocker Name | Role | Phone | + [...] log | | | | [address] | | [phone]) | | | | [place] | | | | | | [address] | | | | | | [phone] | | | +--------+ + + + [...] | Mehul Cash ARNP | | | 2018 | Visit | | [address] | | | | | | [place] [address] | | | | | | [phone] | | | | | | | | +--------+ + + + + | 05/20/ | Office | Cardiology | Henok Dumont, | | | 2018 | Visit | | MD [address] | | | | | | [place], | | | | | | [place] [address] | | | | | | [phone] | | | | | | | [...] Documentati | Cardiology | | | | 2020 | on Only | | | | +--------+ + + + + as of this encounter Visit Diagnoses Not on filein this encounter"
--- OUTSIDE RECORDS SUMMARY | ~2019-03-23 | XMS | Encounter Summary ---
Demographics + + + | Address | [address] [facility] [address] | | | [place] [address] | + + + | Home Phone | | + + + | Preferred Language | Unknown | + + + | Marital Status | | + + + | Scientology Affiliation | Unknown | + + + | Race | Unknown | + + + | Ethnic Group | Unknown | + + + Author + + + | Author | [facility] | | | and Rezaana | + + + | Organization | [facility] | | | and Rezaana [...] Team Providers + +------+ + | Care Eligibility Consultant Name | Role | Phone | [...] | | stenosis | [address] | [place] | | | | | Lumbar | [address] | [address] | | | | | stenosis | [place], | [place], [place] | | | | | with | [place] [address] | [address] Phone: | | | | | neurogenic | Phone: | [phone] | | | | | claudication | [phone] | Fax: | | | | | Lumbar | Fax: | [phone] | | | | | radiculopath | [phone] | | | | | | y [...] | | stenosis | [address], | [place], [place] | | | | | with | [place] [address] | [address] Phone: | | | | | neurogenic | Phone: | [phone] | | | | | claudication | [phone] | Fax: | | | | | Lumbar | Fax: | [phone] | | | | | radiculopath | [phone] | | | | | | y [...] + + | 02/04/ | Office | [facility] | Jose Martinez, | Lumbar radiculopathy | | 2019 | Visit | PHYSIATRY [address] | PA-C [address] | (Primary Dx); | | | | [place], | [address] [place] | Lumbar foraminal | | | | [place] [id number] | [place] [address] | stenosis; Lumbar | | | | [phone] | [phone] | stenosis with | | | | [...] of the procedure you must provide a mechanic welder truck driver to take you home. For [...] press against a nerve. Date Last Reviewed: 12/27/[id number] [employer]. [address] [place] [address], [place] [address]. All righ ts reserved. This information is not intended as a substitute for professional medical care. Always follow your healthcare professional's instructions. documented in this encounter Progress Notes Jose Martinez PA-C - 02/04/2019 1040 PDTFormatting of this note might be different from th e original. Jose Martinez PA-C [address] [facility], [address] [place], [place] [id number] FAX: PHYSICAL MEDICINE AND REHABILITATION H&P CHIEF [...] Dependent edema Due to inactivity Depression Diabetes ([facility]) Gastric reflux Heart disease Hereditary and idiopathic neuropathy, unspecified High cholesterol History of blood transfusion History of fracture Pars interarticularis History of ulceration Ulcer Hypertension Left atrial enlargement Lumbago Lumbar spondylosis Murmur Echo 09/2017 Neuropathy Feet Obstructive sleep apnea (adult) (pediatric) Other spondylosis, lumbar region Peripheral neuropathy Pneumonia Prostate cancer ([facility]) 1994 Radiation: 10/1995-12/1995, [facility] Right atrial enlargement Type 2 diabetes mellitus without complication ([facility]) PAST SURGICAL HISTORY: Past Surgical History: Procedure Laterality Date CARPAL TUNNEL RELEASE Right 12/17/2017 CATARACT REMOVAL Bilateral CORONARY ARTERY BYPASS GRAFT 07/31/2004 [facility] CORONARY ARTERY BYPASS GRAFT 07/09/2012 [facility] GALLBLADDER SURGERY 04/19/2007 Dr. 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 Unfortunately Feliz Martinez continues to have significant [...] + +--------+ + + | Dr. Auguste_Neurosurgery [facility] | Routin | Lumbar foraminal | Ordered: [...]
--- OUTSIDE RECORDS SUMMARY | ~2019-03-23 | XMS | Encounter Summary ---
Demographics + + + | Address | [address] | | | [place] [address] | + + + | Home Phone | | + + + | Preferred Language | Unknown | + + + | Marital Status | | + + + | Uatsdin Affiliation | Unknown | + + + | Race | Unknown | + + + | Ethnic Group | Unknown | + + + Author + + + | Author | [facility] | + + + | Organization | [facility] [employer] [facility] | + + + | Address | Unknown | + + + | Phone | Unavailable | + + + Support + + +---------+ + | Name | Relationship | Address | Phone | + + +---------+ + | Salas Martinez | ECON | Unknown | | + + +---------+ + Care Team Providers + +------+ + | Care Locomotive Operator Helper Name | Role | Phone | + [...] | [address] | | | | | [address] | | | | | | [phone] | | | +--------+ + + + [...] 2018 | Visit | | [address] | | | | | | [place] [address] | | | | | | [phone] | | | | | | | | +--------+ + + + + | 05/20/ | Office | Cardiology | Henok Dumont, | | | 2018 | Visit | | MD [address] | | | | | | [place], | | | | | | [place] [address] | | | | | | [phone] | | | | | | | [...]
--- OUTSIDE RECORDS SUMMARY | ~2019-03-23 | XMS | Encounter Summary ---
Demographics + + + | Address | [address] | | | [place] [address] | + + + | Home Phone | | + + + | Preferred Language | Unknown | + + + | Marital Status | | + + + | Pentecostalism Affiliation | Unknown | + + + | Race | Unknown | + + + | Ethnic Group | Unknown | + + + Author + + + | Author | [facility] [employer] [facility] | + + + | Organization | [facility] [employer] [facility] | + + + | Address | Unknown | + + + | Phone | Unavailable | + + + Support + + +---------+ + | Name | Relationship | Address | Phone | + + +---------+ + | Salas Martinez | ECON | Unknown | | + + +---------+ + Care Team Providers + +------+ + | Care Cook Larder Name | Role | Phone | + [...] [place] | | | | | | [address] | | | | | | [phone] | | | +--------+ + + + [...] | | | | | [place] [address] | | | | | | [phone] | | | | | | | | +--------+ + + + + | 05/20/ | Office | Cardiology | Henok Dumont, | | | 2018 | Visit | | MD [address] | | | | | | [place], | | | | | | [place] [address] | | | | | | [phone] | | | | | | | [...]
--- OUTSIDE RECORDS SUMMARY | ~2019-03-23 | XMS | Encounter Summary ---
Demographics + + + | Address | [address] | | | [place] [address] | + + + | Home Phone | | + + + | Preferred Language | Unknown | + + + | Marital Status | | + + + | Quaker Affiliation | Unknown | + + + | Race | Unknown | + + + | Ethnic Group | Unknown | + + + Author + + + | Author | [facility] [employer] [facility] | + + + | Organization | [facility] [employer] [facility] | + + + | Address | Unknown | + + + | Phone | Unavailable | + + + Support + + +---------+ + | Name | Relationship | Address | Phone | + + +---------+ + | Salas Martinez | ECON | Unknown | | + + +---------+ + Care Team Providers + +------+ + | Care Reed Cleaner Name | Role | Phone | + [...] 2019 | on Only | [facility] | [address] | | | | | [address] | [place] | | | | | [place] | [address] | | | | | [address] | | | | | | [phone] | | | +--------+ + + + [...] | | | | | [place] [address] | | | | | | [phone] | | | | | | | | +--------+ + + + + | 05/20/ | Office | Cardiology | Henok Dumont, | | | 2018 | Visit | | MD [address] | | | | | | [place], | | | | | | [place] [address] | | | | | | [phone] | | | | | | | [...]
--- OUTSIDE RECORDS SUMMARY | ~2019-03-23 | XMS | Clinical Summary ---
Demographics + + + | Address | [address] | | | [place] [address] | + + + | Home Phone | | + + + | Preferred Language | Unknown | + + + | Marital Status | | + + + | Adventist Affiliation | Unknown | + + + | Race | Unknown | + + + | Ethnic Group | Unknown | + + + Author + + + | Author | [facility] [employer] [facility] | + + + | Organization | [facility] [employer] [facility] | + + + | Address | Unknown | + + + | Phone | Unavailable | + + + Support + + +---------+ + | Name | Relationship | Address | Phone | + + +---------+ + | Salas Martinez | ECON | Unknown | | + + +---------+ + Care Team Providers + +------+ + | Care Ssrs Developer Name | Role | Phone | + [...] log | | | | | | [phone]) | +--------+ + + + + | 01/07/ | Office | | Henok Dumont, | Hypertension, | | 2019 | Visit | | MD | unspecified type | | | | | | (Primary Dx); | | | | | | Coronary artery | | | | | | disease involving | | | | | | [place] coronary | | | | | | artery of [place] | | | | | | heart with other | | | | | | form of angina | | | | | | pectoris ([facility]); S/P | | | | | | CABG x 3; S/P PTCA | | | | | | (percutaneous | | | | | | transluminal | | | | | | coronary | | | | | | angioplasty); NSTEMI | | | | | | (non-ST elevated | | | | | | myocardial | | | | | | infarction) ([facility]); | | | | | | Hyperlipidemia, [...] | | | | | [place] [address] | | | | | | [phone] | | | | | | | | +--------+ + + + + | 05/20/ | Office | | Henok Dumont, | | | 2018 | Visit | | MD [address] | | | | | | [place], | | | | | | [place] [address] | | | | | | [phone] | | | | | | | [...] | | 2015 | 5 | | [id number]: Qty: 1 on | | | | | | /[id number] | | 07/09/2012 by Davi, | | [...] + + + + | Calculated P [place] | 33 | degrees | [facility] | + + + + + | Calculated R [place] | 9 | degrees | [facility] | + + + + + | Calculated T [place] | 27 | degrees | [facility] [...] | | | | | by [facility] [place] Read Only, | | | | | [facility] Enrique ([id number]), | | | | | editor magazine Kroey Deluna | | | | | (029) on 01/07/2019 | | | | | 3:14:57 PM | | | + + + + + + + + + + | Performing | Address | City/State/Zipcode | Phone Number | | Organization | | | | + + + + + | [facility] | [address] | [place] [address] | | + + + + + [...] +------+-------+ + | MEDICARE | MEDICA | [id number] | | | [address] | | | RE | | | | [place] [address] | | | IP-OP | | | | | + +--------+ +------+-------+ + | ODS HEALTH PLAN | ODS - | [id number] | | | | | | GENERI [...] | | | [place] | | | [phone] | [address] | + +--------+ +--------+ + +
--- OUTSIDE RECORDS SUMMARY | ~2019-03-23 | XMS | Encounter Summary ---
Demographics + + + | Address | [address] | | | [place] [address] | + + + | Home Phone | | + + + | Preferred Language | Unknown | + + + | Marital Status | | + + + | Jehovah'S Witness Affiliation | Unknown | + + + | Race | Unknown | + + + | Ethnic Group | Unknown | + + + Author + + + | Author | [facility] [employer] [facility] [facility] | + + + | Organization | [facility] [employer] [facility] [employer] [facility] | + + + | Address | Unknown | + + + | Phone | Unavailable | + + + Support + + +---------+ + | Name | Relationship | Address | Phone | + + +---------+ + | Salas Martinez | ECON | Unknown | | + + +---------+ + Care Team Providers + +------+ + | Care Relay Man Name | Role | Phone | + [...] | | [address] | | [phone]) | | | | [place] | | | | | | [address] | | | | | | [phone] | | | +--------+ + + + [...] | | | | | [place] [address] | | | | | | [phone] | | | | | | | | +--------+ + + + + | 05/20/ | Office | Cardiology | Henok Dumont, | | | 2018 | Visit | | MD [address] | | | | | | [place], | | | | | | [place] [address] | | | | | | [phone] | | | | | | | [...]
--- OUTSIDE RECORDS SUMMARY | ~2019-03-23 | XMS | Encounter Summary ---
Demographics + + + | Address | [address] | | | [place] [address] | + + + | Home Phone | | + + + | Preferred Language | Unknown | + + + | Marital Status | | + + + | Restoration Affiliation | Unknown | + + + | Race | Unknown | + + + | Ethnic Group | Unknown | + + + Author + + + | Author | [facility] [employer] [facility] | + + + | Organization | [facility] [employer] [facility] | + + + | Address | Unknown | + + + | Phone | Unavailable | + + + Support + + +---------+ + | Name | Relationship | Address | Phone | + + +---------+ + | Salas Martinez | ECON | Unknown | | + + +---------+ + Care Team Providers + +------+ + | Care Recooperer Name | Role | Phone | + [...] | [address] | | | | | [address] | | | | | | [phone] | | | +--------+ + + + [...] | | | | | [place] [address] | | | | | | [phone] | | | | | | | | +--------+ + + + + | 05/20/ | Office | Cardiology | Henok Dumont, | | | 2018 | Visit | | MD [address] | | | | | | [place], | | | | | | [place] [address] | | | | | | [phone] | | | | | | | [...]
--- OUTSIDE RECORDS SUMMARY | ~2019-03-23 | XMS | Encounter Summary ---
Demographics + + + | Address | [address] | | | [place] [address] | + + + | Home Phone | | + + + | Preferred Language | Unknown | + + + | Marital Status | | + + + | Bahai Affiliation | Unknown | + + + | Race | Unknown | + + + | Ethnic Group | Unknown | + + + Author + + + | Author | [facility] [facility] | + + + | Organization | [facility] [employer] [facility] | + + + | Address | Unknown | + + + | Phone | Unavailable | + + + Support + + +---------+ + | Name | Relationship | Address | Phone | + + +---------+ + | Salas Martinez | ECON | Unknown | | + + +---------+ + Care Team Providers + +------+ + | Care Mime Artist Name | Role | Phone | + [...] + + | 01/07/ | Office | [facility] | Henok Dumont, | Hypertension, | | 2019 | Visit | Cardiology Fazal | MD [address] | unspecified type | | | | [address] | [place], | (Primary Dx); | | | | [facility] [address] | [place] [address] | Coronary artery | | | | [place] [address] | [phone] | disease involving | | | | [phone] | | [place] coronary | | | | | | artery of [place] | | | | | | heart with other | | | | | | form of angina | | | | | | pectoris ([facility]); S/P | | | | [...] | | | | infarction) ([facility]); | | | | | [...] NSTEMI (non-ST elevated myocardial infarction) ([facility]) 07/05/2012 NSTEMI Occlusion of carotid artery < 50% MAICOL stenosis 2011 Prostate cancer ([facility]) 1994 radiation therapy 1995 RLS [...] REDO; Surgeon: Lauren Tomlinson MD; Location: [facility] MAIN OR; Service: C ardiac; Laterality: N/A; [...] - Electrocardiogram, 12-lead 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 angina pectoris ([facility]) S/P CABG x 3 S/P PTCA (percutaneous transluminal coronary angioplasty) NSTEMI (non-ST elevated myocardial infarction) ([facility]) Hyperlipidemia, unspecified hyperlipidemia type Pedal [...] [address] | | | | | | [place] [address] | | | | | | [phone] | | | | | | | | +--------+ + + + + | 05/20/ | Office | Cardiology | Henok Dumont, | | | 2018 | Visit | | MD [address] | | | | | | [place], | | | | | | [place] [address] | | | | | | [phone] | | | | | | | [...] + + + + | Calculated P [place] | 33 | degrees | [facility] | + + + + + | Calculated R [place] | 9 | degrees | [facility] | + + + + + | Calculated T [place] | 27 | degrees | [facility] | + + + + + | Diagnosis | Normal sinus | | [facility] | | | rhythmIncomplete right | [...] | | | | | by [facility] [place] Read Only, | | | | | [facility] Enrique ([id number]), | | | | | writer editor Korey Deluna | | | | | (330) on 01/07/2019 | | | | | 3:14:57 PM | | | + + + + + + + + + + | Performing | Address | City/State/Zipcode | Phone Number | | Organization | | | | + + + + + | [facility] | [address] | [place] [address] | | + + + + + in this encounter Visit Diagnoses + + | Diagnosis | + + | Hypertension, unspecified type - Primary | + + | Coronary artery disease involving [place] coronary artery of [place] heart with other | | form of [...]
--- OUTSIDE RECORDS SUMMARY | ~2019-03-23 | XMS | Clinical Summary ---
Demographics + + + | Address | [address] [facility] [address] | | | [place] [address] | + + + | Home Phone | | + + + | Preferred Language | Unknown | + + + | Marital Status | | + + + | Pentecostalism Affiliation | Unknown | + + + | Race | Unknown | + + + | Ethnic Group | Unknown | + + + Author + + + | Author | [facility] | | | and Rezaana | + + + | Organization | [facility] | | | and Rezaana [...] Team Providers + +------+ + | Care Microbiological Lab Technician Name | Role | Phone | + [...] LComment: | | 09/25/2016 - letter from [facility]; poss exposure NTM in bypass [...] + +--------+ | MEDICARE | MEDICA | [id number] | | [phone] | | Medica | | | RE | | 000-Pr | 5 | | re | | | PART A | | esent | | | | | | AND B | | | | | | + +--------+ +--------+ + +--------+ | MODA | MODA | [id number] | 10/29/19 | [phone] | [address] | [address] | | | HEALTH | | 14-Pre | 9 | [address] | ity | | | MDCR | | sent | | [place], | | | | [place] | | | | [place] [address] | | + +--------+ +--------+ + +--------+ [...] | | al/Fam | | 1935 | [phone] | [address] | | | [place] | | | 5 (Home) | [address] | + +--------+ +--------+ + + Advance Directives Patient has advance care planning documents on file. For more information, please contact:[facility] [place] [facility] [place] [address]
--- OUTSIDE RECORDS SUMMARY | 2019-03-23 12:46 | XMS ---
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 Care History Medical/Surgical 02/21/2019 [facility] - PER RECENT ED VISIT- PATIENT IS NOW SEEING DR CORTES -UROLOGIST IN [place]. - PATIENT HAS AN APT WITH UROLOGIST ON SUNDAY FEBRUARY 24, 2019. 02/10/2019 [facility] - PATIENT HAS NOT SEEN UROLOGIST DR SCANLON SINCE 07/25/2018 AND CANCELLED HIS FOLLOWING APTS. - W NOTIFIED DR SCANLON UROLOGIST OF THE CURRENT ED VISITS- ED NOTES PROVIDED. - CHW CONTACTED DR RAJPUT OFFICE- PATIENT HAS A FOLLOW UP APT WITH DR RAJPUT ON 03/04/19. E.D. VISIT COUNT (12 MO.) 1 [facility] [place] 7 [facility]. TOTAL 8 NOTE: Visits indicate total known visits. ED/UCC VISIT TRACKING (12 MO.) 03/23/2019 12:44 [facility] [place] TYPE: Emergency COMPLAINT: - RIGHT SIDED WEAKNESS/CONFUSTION 03/10/2019 14:54 [facility] [place] TYPE: Emergency DIAGNOSES: - longterm (current) use of antithrombotics/antiplatelets - Gross hematuria - hematuria 03/01/2019 11:17 [facility] [place] TYPE: Emergency COMPLAINT: - POSS STROKE SYMPTOMS DIAGNOSES: - Other alf (current) drug therapy - Aphasia - Cerebral infarction due to thrombosis of left middle cerebral artery - Hyperlipidemia, unspecified - Essential (primary) hypertension - longterm (current) use of oral hypoglycemic drugs - Gastro-esophageal reflux disease without esophagitis - Obesity, unspecified - longterm (current) use of aspirin - Acquired absence of other specified parts of digestive tract - Cerebral infarction, unspecified - Type 2 diabetes mellitus without complications - Atherosclerotic heart disease of [place] coronary artery without angina pectoris - Presence of aortocoronary bypass graft - Presence of coronary angioplasty implant and graft - Personal history of malignant neoplasm of prostate 02/21/2019 00:04 [facility] [place] TYPE: Emergency COMPLAINT: - URINE PROBLEM DIAGNOSES: - Obesity, unspecified - Other alf (current) drug therapy - intermediate frame tender (current) use of oral hypoglycemic drugs - Retention of urine, unspecified - Personal history of malignant neoplasm of prostate - Presence of aortocoronary bypass graft - Essential (primary) hypertension - Acquired absence of other specified parts of digestive tract - Type 2 diabetes mellitus without complications - Personal history of nicotine dependence - Gastro-esophageal reflux disease without esophagitis - longterm (current) use of aspirin - Hyperlipidemia, unspecified - Presence of coronary angioplasty implant and graft - Old myocardial infarction - Allergy status to other drugs, medicaments and biological substances status 02/07/2019 12:38 [facility] [place] TYPE: Emergency COMPLAINT: - CATH PROBLEM DIAGNOSES: - Presence of aortocoronary bypass graft - Type 2 diabetes mellitus without complications - Obesity, unspecified - longterm (current) use of aspirin - Presence of coronary angioplasty implant and graft - Essential (primary) hypertension - Acquired absence of other specified parts of digestive tract - Leakage of indwelling urethral catheter, initial encounter - Other mechanical complication of indwelling urethral catheter, initial encounter - Balanitis - Hyperlipidemia, unspecified - Atherosclerotic heart disease of [place] coronary artery without angina pectoris - Other alf (current) drug therapy - Allergy status to other drugs, medicaments and biological substances status - Personal history of malignant neoplasm of prostate - Gastro-esophageal reflux disease without esophagitis 02/07/2019 08:40 [facility] [place] TYPE: Emergency COMPLAINT: - CATHETER PROBLEM DIAGNOSES: - Allergy status to other drugs, medicaments and biological substances status - Gastro-esophageal reflux disease without esophagitis - Hyperlipidemia, unspecified - Obesity, unspecified - Type 2 diabetes mellitus without complications - Presence of aortocoronary bypass graft - Other rat exterminator (current) drug therapy - Acquired absence of other specified parts of digestive tract - Balanitis - Personal history of malignant neoplasm of prostate - Essential (primary) hypertension - Leakage of indwelling urethral catheter, initial encounter - Atherosclerotic heart disease of [place] coronary artery without angina pectoris 02/06/2019 20:05 [...] without esophagitis - Atherosclerotic heart disease of [place] coronary artery without angina pectoris - Presence of aortocoronary bypass graft - longterm (current) use of aspirin - Balanitis - Other alf (current) drug therapy - intermediate frame tender (current) use of oral hypoglycemic drugs 09/12/2018 09:12 [facility] [place] TYPE: Emergency COMPLAINT: - CHEST PAIN/DIZZINESS DIAGNOSES: - intermediate frame tender (current) use of aspirin - Gastro-esophageal reflux disease without esophagitis - Allergy status to other drugs, medicaments and biological substances status - Obesity, unspecified - Personal history of nicotine dependence - intermediate frame tender (current) use of oral hypoglycemic drugs - Atherosclerotic heart disease of [place] coronary artery without angina pectoris - Dehydration - Other chest pain - Essential (primary) hypertension - Type 2 diabetes mellitus without complications - Other alf (current) drug therapy INPATIENT VISIT TRACKING (12 MO.) 03/01/2019 17:25 [facility] [place] TYPE: Cardiology DIAGNOSES: - Bradycardia, unspecified - Essential (primary) hypertension - Other chronic pain - Status post administration of tPA (rtPA) in a different facility within the last 24 hours prior to admission to current facility - Cerebral infarction due to embolism of left middle cerebral artery - Stroke (cerebrum) ([facility]) [I63.9] - Other specified heart block - Cerebral infarction due to unspecified occlusion or stenosis of left middle cerebral artery - Low back pain - Type 2 diabetes mellitus without complications - Restless legs syndrome - Cerebral atherosclerosis - stroke - Sleep apnea, unspecified - Atherosclerotic heart disease of [place] coronary artery without angina pectoris - Sick sinus syndrome [email or web address]
--- NOTE | 2019-03-25 19:12 | EKG ---
[facility] [address] [place], [place] [address] Signed Normal sinus rhythm Left ventricular hypertrophy with QRS widening Inferior infarct , age undetermined Abnormal ECG Confirmed by TARSHA WINSTON MD ([id number]) on 03/25/2019 7:11:59 PM Electronically Signed By: TARSHA WINSTON MD 03/25/191911 PATIENT NAME: DEEPALI JUDD Electrocardiogram DATE OF : 35 PHYSICIAN: TARSHA WINSTON MD REPORT #: [id number] REPORT IS CONFIDENTIAL AND NOT TO BE RELEASED WITHOUT AUTHORIZATION
== END ==
LOC: ED 12:42
DX: I63.9 Cerebral infarction, unspecified (principal); I10 Essential (primary) hypertension; E11.9 Type 2 diabetes mellitus without complications; K21.9 Gastro-esophageal reflux disease without esophagitis; Z87.891 Personal history of nicotine dependence; Z90.49 Acquired absence of other specified parts of digestive tract; Z88.5 Allergy status to narcotic agent; Z88.8 Allergy status to other drugs, medicaments and biological substances; Z79.82 Long term (current) use of aspirin; Z79.899 Other long term (current) drug therapy
CPT/HCPCS: 70450; 70496; 70498; 71045; 80053; 84484; 85025; 93005; 93010; 99285-25; J1644; Q9967

== ENCOUNTER 2019-04-06 07:19 | Emergency (ER) | payer OTHER ==
[~2019-04-06] VITALS: Ht 172.7 cm; Wt 105.4 kg
--- OUTSIDE RECORDS SUMMARY | ~2019-04-06 | XMS | Encounter Summary ---
Demographics + + + | Address | [address] | | | [place] [address] | + + + | Home Phone | | + + + | Preferred Language | Unknown | + + + | Marital Status | | + + + | Restorationism Affiliation | Unknown | + + + | Race | Unknown | + + + | Ethnic Group | Unknown | + + + Author + + + | Author | [facility] | + + + | Organization | [facility] | + + + | Address | Unknown | + + + | Phone | Unavailable | + + + Support + + +---------+ + | Name | Relationship | Address | Phone | + + +---------+ + | Salas Martinez | ECON | Unknown | | + + +---------+ + Care Team Providers + +------+ + | Care Supervisor Tunnel Heading Name | Role | Phone | + +------+ + | Angelito Maxwell MD | PCP | | + +------+ + Encounter Details +--------+ + + + + | Date | Type | Department | Care Team | Description | +--------+ + + + + | 03/31/ | Telephone | [facility] | Kenneth Hurtado, | | | 2018 | | [facility] [place] | [place] | | | | | [address] | | | | | | [place] | | | | | | [address] | | | | | | [phone] | | | +--------+ + + + + Social History + +-------+ +--------+ + | Tobacco Use | Types | Packs/Day | Years | Date | | | | | Used | | + +-------+ +--------+ + | Former Smoker | | 0.25 | 4 | Quit: 1960 | + +-------+ +--------+ + + +---+---+---+ | Smokeless Tobacco: | | | | | Never Used | | | | + +---+---+---+ + + +---------+ + | Alcohol Use | Drinks/We | oz/Week | Comments | | | ek | | | + + +---------+ + | Yes | 4 Cans | 2.4 | | | | of beer | | | + + +---------+ + + + + | Sex Assigned at | Date Recorded | | | | + + + | Not on file | | + + + as of this encounter Plan of Treatment +--------+ + + + + | Date | Type | Specialty | Care Team | Description | +--------+ + + + + | 04/08/ | Office | Cardiology | Henok Dumont, | | | 2018 | Visit | | MD [address] | | | | | | [place], | | | | | | [place] [address] | | | | | | [phone] | | | | | | | | +--------+ + + + + | 05/20/ | Office | Cardiology | Henok Dumont, | | | 2018 | Visit | | MD [address] | | | | | | [place] | | | | | | [place] [address] | | | | | | [phone] | | | | | | | | +--------+ + + + + | 06/25/ | Documentati | Cardiology | | | | 2018 | on Only | | | | +--------+ + + + + | 07/22/ | Office | Neurology | Yanni Sullivan, | | | 2018 | Visit | | MD [address] | | | | | | [place] | | | | | | [address] | | | | | | | | +--------+ + + + + | 09/24/ | Documentati | Cardiology | | | | 2018 | on Only | | | | +--------+ + + + + | 12/24/ | Documentati | Cardiology | | | | 2019 | on Only | | | | +--------+ + + + + as of this encounter Visit Diagnoses Not on filein this encounter"
--- OUTSIDE RECORDS SUMMARY | ~2019-04-06 | XMS | Encounter Summary ---
Demographics + + + | Address | [address] | | | [place] [address] | + + + | Home Phone | | + + + | Preferred Language | Unknown | + + + | Marital Status | | + + + | Adventism Affiliation | Unknown | + + + | Race | Unknown | + + + | Ethnic Group | Unknown | + + + Author + + + | Author | [facility] | + + + | Organization | [facility] | + + + | Address | Unknown | + + + | Phone | Unavailable | + + + Support + + +---------+ + | Name | Relationship | Address | Phone | + + +---------+ + | Salas Martinez | ECON | Unknown | | + + +---------+ + Care Team Providers + +------+ + | Care Clinician Oncology Name | Role | Phone | + +------+ + | Angelito Maxwell MD | PCP | | + +------+ + Encounter Details +--------+ + + + + | Date | Type | Department | Care Team | Description | +--------+ + + + + | 03/19/ | Documentati | [facility] | Yanni Sullivan, | | | 2019 | on Only | [facility] | [address] | | | | | [address] | [place] | | | | | [place] | [address] | | | | | [address] | | | | | | [phone] | | | +--------+ + + + [...] + + + as of this encounter Progress Notes Vanda Sloan N - 03/19/2019 9:24 AM PDTNeurology referralin this encounter Plan of Treatment +--------+ + + + + | Date | Type | Specialty | Care Team | Description | +--------+ + + + + | 04/08/ | Office | Cardiology | Henok Dumont, | | | 2018 | Visit | | MD [address] | | | | | | [place], | | | | | | [place] [address] | | | | | | [phone] | | | | | | | | +--------+ + + + + | 05/20/ | Office | Cardiology | Henok Dumont, | | | 2018 | Visit | | MD [address] | | | | | | [place] | | | | | | [place] [address] | | | | | | [phone] | | | | | | | [...] [place] | | | | | | [address] | | | | | | | [...]
--- OUTSIDE RECORDS SUMMARY | ~2019-04-06 | XMS | Encounter Summary ---
Demographics + + + | Address | [address] | | | [place] [address] | + + + | Home Phone | | + + + | Preferred Language | Unknown | + + + | Marital Status | | + + + | Sabianist Affiliation | Unknown | + + + | Race | Unknown | + + + | Ethnic Group | Unknown | + + + Author + + + | Author | [facility] | + + + | Organization | [facility] | + + + | Address | Unknown | + + + | Phone | Unavailable | + + + Support + + +---------+ + | Name | Relationship | Address | Phone | + + +---------+ + | Salas Martinez | ECON | Unknown | | + + +---------+ + Care Team Providers + +------+ + | Care Pole Framer Machine Name | Role | Phone | + +------+ + | Angelito Maxwell MD | PCP | | + +------+ + Encounter Details +--------+ + + + + | Date | Type | Department | Care Team | Description | +--------+ + + + + | 03/14/ | Documentati | [facility] | Mitchell Auguste DO | | | 2019 | on Only | [facility] | [address] | | | | | [address] | [place] | | | | | [place] | [address] | | | | | [address] | | | | | | [phone] | | | +--------+ + + + [...] | | | | | | [place] [address] | | | | | | [phone] | | | | | | | | +--------+ + + + + | 05/20/ | Office | Cardiology | Henok Dumont, | | | 2018 | Visit | | MD [address] | | | | | | [place] | | | | | | [place] [address] | | | | | | [phone] | | | | | | | | +--------+ + + + + | 06/25/ | Documentati | Cardiology | | | | 2018 | on Only | | | | +--------+ + + + + | 07/22/ | Office | Neurology | Yanni Sullivan, | | | 2018 | Visit | | MD [address] | | | | | | [place] | | | | | | [address] | | | | | | | [...]
--- OUTSIDE RECORDS SUMMARY | ~2019-04-06 | XMS | Encounter Summary ---
Demographics + + + | Address | [address] | | | [place] [address] | + + + | Home Phone | | + + + | Preferred Language | Unknown | + + + | Marital Status | | + + + | Tenriism Affiliation | Unknown | + + + | Race | Unknown | + + + | Ethnic Group | Unknown | + + + Author + + + | Author | [facility] | | | and Rezaana | + + + | Organization | [facility] | | | and Rezaana [...] Team Providers + +------+ + | Care Senior Executive Assistant Name | Role | Phone | + [...] | | stenosis | [address] | [place] | | | | | Lumbar | [address] | [address] | | | | | stenosis | [place], | [place], [place] | | | | | with | [place] [address] | [address] Phone: | | | | | neurogenic | Phone: | [phone] | | | | | claudication | [phone] | Fax: | | | | | Lumbar | Fax: | [phone] | | | | | radiculopath | [phone] | | | | | | y [...] | | stenosis | [address], | [place], [place] | | | | | with | [place] [address] | [address] Phone: | | | | | neurogenic | Phone: | [phone] | | | | | claudication | [phone] | Fax: | | | | | Lumbar | Fax: | [phone] | | | | | radiculopath | [phone] | | | | | | y [...] + + | 02/04/ | Office | [facility] | Jose Martinez, | Lumbar radiculopathy | | 2019 | Visit | PHYSIATRY [address] | PA-C [address] | (Primary Dx); | | | | [place], | [address] [place] | Lumbar foraminal | | | | [place] [address] | [place] [address] | stenosis; Lumbar | | | | [phone] | [phone] | stenosis with | | | | [...] of the procedure you must provide a ice delivery driver to take you home. For all [...] press against a nerve. Date Last Reviewed: 12/27/[id number] [employer]. [address] [place] [address], [place] [address]. All righ ts reserved. This information is not intended as a substitute for professional medical care. Always follow your healthcare professional's instructions. documented in this encounter Progress Notes Jose Martinez PA-C - 02/04/2019 1040 PDTFormatting of this note might be different from th e original. Jose Martinez PA-C [address] [facility], [address] [place], [place] [id number] FAX: PHYSICAL MEDICINE AND REHABILITATION H&P CHIEF [...] Dependent edema Due to inactivity Depression Diabetes ([facility]) Gastric reflux Heart disease Hereditary and idiopathic neuropathy, unspecified High cholesterol History of blood transfusion History of fracture Pars interarticularis History of ulceration Ulcer Hypertension Left atrial enlargement Lumbago Lumbar spondylosis Murmur Echo 09/2017 Neuropathy Feet Obstructive sleep apnea (adult) (pediatric) Other spondylosis, lumbar region Peripheral neuropathy Pneumonia Prostate cancer ([facility]) 1994 Radiation: 10/1995-12/1995, [facility] Right atrial enlargement Type 2 diabetes mellitus without complication ([facility]) PAST SURGICAL HISTORY: Past Surgical History: Procedure Laterality Date CARPAL TUNNEL RELEASE Right 12/17/2017 CATARACT REMOVAL Bilateral CORONARY ARTERY BYPASS GRAFT 07/31/2004 [facility] CORONARY ARTERY BYPASS GRAFT 07/09/2012 [facility] GALLBLADDER SURGERY 04/19/2007 Dr. Vinson, [facility] PROSTATE SURGERY 1994 Prostate Cancer CURRENT [...] has no apparent deficits with short or manager intermediate memory. 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 Unfortunately Feliz Martinez continues to have significant [...] + +--------+ + + | Dr. Auguste_Neurosurgery [facility] | Routin | Lumbar foraminal [...]
--- OUTSIDE RECORDS SUMMARY | ~2019-04-06 | XMS | Clinical Summary ---
Demographics + + + | Address | [address] | | | [place] [address] | + + + | Home Phone | | + + + | Preferred Language | Unknown | + + + | Marital Status | | + + + | Muslim Affiliation | Unknown | + + + | Race | Unknown | + + + | Ethnic Group | Unknown | + + + Author + + + | Author | [facility] | + + + | Organization | [facility] | + + + | Address | Unknown | + + + | Phone | Unavailable | + + + Support + + +---------+ + | Name | Relationship | Address | Phone | + + +---------+ + | Salas Judd | ECON | Unknown | | + + +---------+ + Care Team Providers + +------+ + | Care Steam Fitter Supervisor Name | Role | Phone | + [...] | +--------+ + + + + | 04/02/ | Telephone | | Irena Mcrae, | | | 2018 | | | [place] | | +--------+ + + + + | 03/31/ | Telephone | | Kenneth Hurtado, | | | 2018 | | | [place] | | +--------+ + + + + | 03/19/ | Documentati | | Yanni Sullivan, | | | 2018 | on Only | | MD | | +--------+ + + + + | 03/14/ | Documentati | | Mitchell Auguste DO | | | 2018 | on Only | | | | +--------+ + + + + | 01/16/ | Documentati | | Tori Umanzor Only | | 2018 | on Only | | BESSY Milligan | | +--------+ + + + + | 01/08/ | Documentati | | Nena Farias, | Other (Patient's | | 2019 | on Only | | [place] | blood sugar log | | | | | | [phone]) | +--------+ + + + + | 01/07/ | Office | | Henok Dumont, | Hypertension, | | 2018 | Visit | | MD | unspecified type | | | | | | (Primary Dx); | | | | | | Coronary artery | | | | | | disease involving | | | | | | akhiok coronary | | | | | | artery of akhiok | | | | | | heart with other | | | | | | form of angina | | | | | | pectoris ([facility]); S/P | | | | | | CABG x 3; S/P PTCA | | | | | | (percutaneous | | | | | | transluminal | | | | | | coronary | | | | | | angioplasty); NSTEMI | | | | | | (non-ST elevated | | | | | | myocardial | | | | | | infarction) ([facility]); | | | | | | Hyperlipidemia, [...] + + | 04/08/ | Office | | Henok Dumont, | | | 2018 | Visit | | [address] | | | | | | [place], | | | | | | [place] [address] | | | | | | [phone] | | | | | | | | +--------+ + + + + | 05/20/ | Office | | Henok Dumont, | | | 2018 | Visit | | [address] | | | | | | [place], | | | | | | [place] [address] | | | | | | [phone] | | | | | | | | +--------+ + + + + | 06/25/ | Documentati | | | | | 2018 | on Only | | | | +--------+ + + + + | 07/22/ | Office | | Yanni Sullivan, | | | 2018 | Visit | | MD [address] | | | | | | [place] | | | | | | [address] | | | | | | | | +--------+ + + + + | 09/24/ | Documentati | | | | | 2018 | on [...] | | 2015 | 5 | | [id number]: Qty: 1 on | | | | | | /[id number] | | 07/09/2012 by Davi, | | [...] + + + + | Calculated P [place] | 33 | degrees | [facility] | + + + + + | Calculated R [place] | 9 | degrees | [facility] | + + + + + | Calculated T [place] | 27 | degrees | [facility] [...] | | | | | by [facility] [place] Read Only, | | | | | [facility] Kate (502), | | | | | design editor Korey Deluna | | | | | (253) on 01/07/2019 | | | | | 3:14:57 PM | | | + + + + + + + + + + | Performing | Address | City/State/Zipcode | Phone Number | | Organization | | | | + + + + + | [facility] | [address] | [place] [address] | | + + + + + [...] +------+-------+ + | MEDICARE | MEDICA | [id number] | | | [address] | | | RE | | | | [place] [address] | | | IP-OP | | | | | + +--------+ +------+-------+ + | [employer] | ODS - | [id number] | | | | | | GENERI [...] + +--------+ +--------+ + + | DEEPALI JUDD | Person | Self [birth year] Home: | [address] | | | al/Fam | | [phone] | [phone] [address] [place] | | | [place] | | | [phone] | [phone] | + +--------+ +--------+ + +
--- OUTSIDE RECORDS SUMMARY | ~2019-04-06 | XMS | Encounter Summary ---
Demographics + + + | Address | [address] | | | [place] [address] | + + + | Home Phone | | + + + | Preferred Language | Unknown | + + + | Marital Status | | + + + | Taoist Affiliation | Unknown | + + + | Race | Unknown | + + + | Ethnic Group | Unknown | + + + Author + + + | Author | [facility] | + + + | Organization | [facility] | + + + | Address | Unknown | + + + | Phone | Unavailable | + + + Support + + +---------+ + | Name | Relationship | Address | Phone | + + +---------+ + | Salas Martinez | ECON | Unknown | | + + +---------+ + Care Team Providers + +------+ + | Care Iron And Steel Work Supervisor Name | Role | Phone | [...] + + | 01/07/ | Office | [facility] | Henok Dumont, | Hypertension, | | 2019 | Visit | Cardiology [place] | MD [address] | unspecified type | | | | [address] | [place], | (Primary Dx); | | | | [facility] [address] | [place] [address] | Coronary artery | | | | [place] [address] | [phone] | disease involving | | | | [phone] | | poarch coronary | | | | | | artery of poarch | | | | | | heart with other | | | | | | form of angina | | | | | | pectoris ([facility]); S/P | | | | [...] | | | | | | infarction) ([facility]); | | | | | [...] Hypertension Neuropathy NSTEMI (non-ST elevated myocardial infarction) ([facility]) 07/05/2012 NSTEMI Occlusion of carotid artery < 50% MAICOL stenosis 2011 Prostate cancer ([facility]) 1994 radiation therapy 1995 RLS [...] - REDO; Surgeon: Lauren Tomlinson MD; Location: [facility]; Service: C ardiac; Laterality: [...] - Electrocardiogram, 12-lead Coronary artery disease involving poarch coronary artery of poarch heart with other form of angina pectoris ([facility]) S/P CABG x 3 S/P PTCA (percutaneous transluminal coronary angioplasty) NSTEMI (non-ST elevated myocardial infarction) ([facility]) Hyperlipidemia, unspecified hyperlipidemia type Pedal [...] | | | | | | [place] [address] | | | | | | [phone] | | | | | | | | +--------+ + + + + | 05/20/ | Office | Cardiology | Henok Dumont, | | | 2018 | Visit | | MD [address] | | | | | | [place] | | | | | | [place] [address] | | | | | | [phone] | | | | | | | [...] [place] | | | | | | [address] | | | | | | | [...] + + + + | Calculated P [place] | 33 | degrees | [facility] | + + + + + | Calculated R [place] | 9 | degrees | [facility] | + + + + + | Calculated T [place] | 27 | degrees | [facility] | + + + + + | Diagnosis | Normal sinus | | [facility] | | | rhythmIncomplete right | [...] | | | | | by [facility] Foreman Read Only, | | | | | [facility] Kate ([id number]), | | | | | scientific editor Korey Deluna | | | | | ([id number]) on 01/07/2019 | | | | | 3:14:57 PM | | | + + + + + + + + + + | Performing | Address | City/State/Zipcode | Phone Number | | Organization | | | | + + + + + | [facility] | [address] | [place] [address] | | + + + + + in this encounter Visit Diagnoses + + | Diagnosis | + + | Hypertension, unspecified type - Primary | + + | Coronary artery disease involving poarch coronary artery of poarch heart with other | | form of [...]
--- OUTSIDE RECORDS SUMMARY | ~2019-04-06 | XMS | Clinical Summary ---
Demographics + + + | Address | [address] | | | [place] [address] | + + + | Home Phone | | + + + | Preferred Language | Unknown | + + + | Marital Status | | + + + | Anabaptist Affiliation | Unknown | + + + | Race | Unknown | + + + | Ethnic Group | Unknown | + + + Author + + + | Author | [facility] | | | and Rezaana | + + + | Organization | [facility] | | | and [...] Team Providers + +------+ + | Care Professor Of Law Name | Role | Phone | + [...] LComment: | | 09/25/2016 - letter from [facility]; poss exposure NTM in bypass Nov | [...] + +--------+ | MEDICARE | MEDICA | [id number] | | [phone] | | Medica | | | RE | | 000-Pr | 5 | | re | | | PART A | | esent | | | | | | AND B | | | | | | + +--------+ +--------+ + +--------+ | MODA | MODA | [id number] | 10/29/19 | [phone] | [address] | [place] | | | HEALTH | | 14-Pre | 9 | [address] | ity | | | MDCR | | sent | | [place], | | | | [place] | | | | [place] [address] | | + +--------+ +--------+ + +--------+ [...] | | al/Fam | | 1935 | [phone] | [address] [place] | | | rosey | | | 5 (Home) | [address] | + +--------+ +--------+ + + Advance Directives Patient has advance care planning documents on file. For more information, please contact:[facility] [place] [address]
--- OUTSIDE RECORDS SUMMARY | ~2019-04-06 | XMS | Encounter Summary ---
Demographics + + + | Address | [address] | | | [place] [address] | + + + | Home Phone | | + + + | Preferred Language | Unknown | + + + | Marital Status | | + + + | Hinduism Affiliation | Unknown | + + + | Race | Unknown | + + + | Ethnic Group | Unknown | + + + Author + + + | Author | [facility] | + + + | Organization | [facility] | + + + | Address | Unknown | + + + | Phone | Unavailable | + + + Support + + +---------+ + | Name | Relationship | Address | Phone | + + +---------+ + | Salas Martinez | ECON | Unknown | | + + +---------+ + Care Team Providers + +------+ + | Care Garageman Name | Role | Phone | + +------+ + | Angelito Maxwell MD | PCP | | + +------+ + Encounter Details +--------+ + + + + | Date | Type | Department | Care Team | Description | +--------+ + + + + | 04/02/ | Telephone | Kiley | Irena Mcrae, | | | 2018 | | [facility] | [place] | | | | | [address] | | | | | | [place] | | | | | | [address] | | | | | | [phone] | | | +--------+ + + + [...] | | | | | | [place] [address] | | | | | | [phone] | | | | | | | | +--------+ + + + + | 05/20/ | Office | Cardiology | Henok Dumont, | | | 2018 | Visit | | MD [address] | | | | | | [place] | | | | | | [place] [address] | | | | | | [phone] | | | | | | | [...] [place] | | | | | | [address] | | | | | | | [...]
--- OUTSIDE RECORDS SUMMARY | ~2019-04-06 | XMS | Encounter Summary ---
Demographics + + + | Address | [address] | | | [place] [address] | + + + | Home Phone | | + + + | Preferred Language | Unknown | + + + | Marital Status | | + + + | Alevism Affiliation | Unknown | + + + | Race | Unknown | + + + | Ethnic Group | Unknown | + + + Author + + + | Author | [facility] | + + + | Organization | [facility] | + + + | Address | Unknown | + + + | Phone | Unavailable | + + + Support + + +---------+ + | Name | Relationship | Address | Phone | + + +---------+ + | Salas Martinez | ECON | Unknown | | + + +---------+ + Care Team Providers + +------+ + | Care Grant Manager Name | Role | Phone | [...] [place] | | | | | | [address] | | | | | | [phone] | | | +--------+ + + + [...] | | | | | | [place] [address] | | | | | | [phone] | | | | | | | | +--------+ + + + + | 05/20/ | Office | Cardiology | Henok Dumont, | | | 2019 | Visit | | MD [address] | | | | | | [place], | | | | | | [place] [address] | | | | | | [phone] | | | | | | | | +--------+ + + + + | 06/25/ | Documentati | Cardiology | | | | 2018 | on Only | | | | +--------+ + + + + | 07/22/ | Office | Neurology | Yanni Sullivan, | | | 2019 | Visit | | MD [address] | | | | | | [place] | | | | | | [address] | | | | | | | [...]
--- OUTSIDE RECORDS SUMMARY | ~2019-04-06 | XMS | Encounter Summary ---
Demographics + + + | Address | [address] | | | [place] [address] | + + + | Home Phone | | + + + | Preferred Language | Unknown | + + + | Marital Status | | + + + | Buddhism Affiliation | Unknown | + + + | Race | Unknown | + + + | Ethnic Group | Unknown | + + + Author + + + | Author | [facility] | + + + | Organization | [facility] | + + + | Address | Unknown | + + + | Phone | Unavailable | + + + Support + + +---------+ + | Name | Relationship | Address | Phone | + + +---------+ + | Salas Martinez | ECON | Unknown | | + + +---------+ + Care Team Providers + +------+ + | Care Senior Billing Consultant Name | Role | Phone | [...] | | [address] | | [phone]) | | | | [place] | | | | | | [address] | | | | | | [phone] | | | +--------+ + + + [...] | | | | | | [place] [address] | | | | | | [phone] | | | | | | | | +--------+ + + + + | 05/20/ | Office | Cardiology | Henok Dumont, | | | 2018 | Visit | | MD [address] | | | | | | [place], | | | | | | [place] [address] | | | | | | [phone] | | | | | | | [...] [place] | | | | | | [address] | | | | | | | [...]
--- OUTSIDE RECORDS SUMMARY | 2019-04-06 07:22 | XMS ---
PreManage Notification: DEEPALI JUDD Security Burial Agent Events No recent Security Events currently on file CRITERIA MET - 6 ED Visits in 6 Months - [facility] - Has Care Guidelines - [facility] - 2 Visits in 30 Days CARE PROVIDERS KATHE RAJPUT Family Medicine 02/10/2019-Current PHONE: Unknown Vernon Irving MD Primary Care 01/08/2018 PHONE: [phone] Jude Lawrence Primary Care Current PHONE: [phone] Niko has no Care Guidelines for this patient. Care History Medical/Surgical 02/21/2019 [facility] - PER RECENT ED VISIT- PATIENT IS NOW SEEING DR CORTES -UROLOGIST IN [place]. - PATIENT HAS AN APT WITH UROLOGIST ON SUNDAY FEBRUARY 24, 2019. 02/10/2019 [facility] - PATIENT HAS NOT SEEN UROLOGIST DR SCANLON SINCE 07/25/2018 AND CANCELLED HIS FOLLOWING APTS. - W NOTIFIED DR SCANLON UROLOGIST OF THE CURRENT ED VISITS- ED NOTES PROVIDED. - CHW CONTACTED DR RAJPUT OFFICE- PATIENT HAS A FOLLOW UP APT WITH DR RAJPUT ON 03/04/19. E.D. VISIT COUNT (12 MO.) 1 [facility] [place] 8 [facility]. TOTAL 9 NOTE: Visits indicate total known visits. ED/UCC VISIT TRACKING (12 MO.) 04/06/2019 07:[address] [facility] [place] TYPE: Emergency COMPLAINT: - CATHETER PROBLEM 03/23/2019 12:[address] [facility] [place] TYPE: Emergency COMPLAINT: - RIGHT SIDED WEAKNESS/CONFUSTION DIAGNOSES: - Slurred speech - Other prison (current) drug therapy - Type 2 diabetes mellitus without complications - Allergy status to narcotic agent status - FCI (current) use of aspirin - Cerebral infarction, unspecified - Acquired absence of other specified parts of digestive tract - Gastro-esophageal reflux disease without esophagitis - Essential (primary) hypertension - Allergy status to other drugs, medicaments and biological substances status - Personal history of nicotine dependence 03/10/2019 14:54 [facility] [place] TYPE: Emergency DIAGNOSES: - FCI (current) use of antithrombotics/antiplatelets - Gross hematuria - hematuria 03/01/2019 11:17 [facility] [place]: Emergency COMPLAINT: - POSS STROKE SYMPTOMS DIAGNOSES: - Other prison (current) drug therapy - Aphasia - Cerebral infarction due to thrombosis of left middle cerebral artery - Hyperlipidemia, unspecified - Essential (primary) hypertension - FCI (current) use of oral hypoglycemic drugs - Gastro-esophageal reflux disease without esophagitis - Obesity, unspecified - ocean transportation intermediary (current) use of aspirin - Acquired absence of other specified parts of digestive tract - Cerebral infarction, unspecified - Type 2 diabetes mellitus without complications - Atherosclerotic heart disease of [place] coronary artery without angina pectoris - Presence of aortocoronary bypass graft - Presence of coronary angioplasty implant and graft - Personal history of malignant neoplasm of prostate 02/21/2019 00:04 [place] TYPE: Emergency COMPLAINT: - URINE PROBLEM DIAGNOSES: - Obesity, unspecified - Other prison (current) drug therapy - ocean transportation intermediary (current) use of oral hypoglycemic drugs - Retention of urine, unspecified - Personal history of malignant neoplasm of prostate - Presence of aortocoronary bypass graft - Essential (primary) hypertension - Acquired absence of other specified parts of digestive tract - Type 2 diabetes mellitus without complications - Personal history of nicotine dependence - Gastro-esophageal reflux disease without esophagitis - ocean transportation intermediary (current) use of aspirin - Hyperlipidemia, unspecified - Presence of coronary angioplasty implant and graft - Old myocardial infarction - Allergy status to other drugs, medicaments and biological substances status 02/07/2019 12:38 [place] [place] TYPE: Emergency COMPLAINT: - CATH PROBLEM DIAGNOSES: - Presence of aortocoronary bypass graft - Type 2 diabetes mellitus without complications - Obesity, unspecified - FCI (current) use of aspirin - Presence of coronary angioplasty implant and graft - Essential (primary) hypertension - Acquired absence of other specified parts of digestive tract - Leakage of indwelling urethral catheter, initial encounter - Other mechanical complication of indwelling urethral catheter, initial encounter - Balanitis - Hyperlipidemia, unspecified - Atherosclerotic heart disease of [place] coronary artery without angina pectoris - Other prison (current) drug therapy - Allergy status to [...] Presence of aortocoronary bypass graft - Other ferry terminal agent (current) drug therapy - Acquired absence of other specified parts of digestive tract - Balanitis - Personal history of malignant neoplasm of prostate - Essential (primary) hypertension - Leakage of indwelling urethral catheter, initial encounter - Atherosclerotic heart disease of [place] coronary artery without angina pectoris 02/06/2019 20:05 [...] without esophagitis - Atherosclerotic heart disease of [place] coronary artery without angina pectoris - Presence of aortocoronary bypass graft - ocean transportation intermediary (current) use of aspirin - Balanitis - Other ferry terminal agent (current) drug therapy - FCI (current) use of oral hypoglycemic drugs 09/12/2018 09:12 [place] [place] TYPE: Emergency COMPLAINT: - CHEST PAIN/DIZZINESS DIAGNOSES: - ocean transportation intermediary (current) use of aspirin - Gastro-esophageal reflux disease without esophagitis - Allergy status to other drugs, medicaments and biological substances status - Obesity, unspecified - Personal history of nicotine dependence - ocean transportation intermediary (current) use of oral hypoglycemic drugs - Atherosclerotic heart disease of [place] coronary artery without angina pectoris - Dehydration - Other chest pain - Essential (primary) hypertension - Type 2 diabetes mellitus without complications - Other ferry terminal agent (current) drug therapy INPATIENT VISIT TRACKING (12 MO.) 03/23/2019 19:25 [facility] [place] TYPE: Neuro Surgery DIAGNOSES: - Cerebral infarction due to embolism of left middle cerebral artery - Essential (primary) hypertension - Cerebral infarction due to unspecified occlusion or stenosis of left middle cerebral artery - Presence of cardiac pacemaker - Cerebrovascular disease, unspecified - Cerebral atherosclerosis - Hyperlipidemia, unspecified - ACUTE ISCHEMIC STROKE 03[facility]01/2019 17:[facility] [place] [facility] DIAGNOSES: - Bradycardia, unspecified - Essential (primary) hypertension - Other chronic pain - Status post administration of tPA (rtPA) in a different facility within the last 24 hours prior to admission to current facility - Cerebral infarction due to embolism of left middle cerebral artery - Stroke (cerebrum) ([facility]) [I63.9] - Other specified heart block - Cerebral infarction due to unspecified occlusion or stenosis of left middle cerebral artery - Low back pain - Type 2 diabetes mellitus without complications - Restless legs syndrome - Cerebral atherosclerosis - stroke - Sleep apnea, unspecified - Atherosclerotic heart disease of [place] coronary artery without angina pectoris - Sick sinus syndrome [email or web address]
== END 2019-04-06 07:56 | disposition home or self-care (01) ==
LOC: ED 07:19
DX: T83.091A Other mechanical complication of indwelling urethral catheter, initial encounter (principal); I10 Essential (primary) hypertension; E11.9 Type 2 diabetes mellitus without complications; E78.5 Hyperlipidemia, unspecified; K21.9 Gastro-esophageal reflux disease without esophagitis; Z86.73 Personal history of transient ischemic attack (TIA), and cerebral infarction without residual deficits; Z87.891 Personal history of nicotine dependence; Z90.49 Acquired absence of other specified parts of digestive tract; Z95.5 Presence of coronary angioplasty implant and graft; Z88.8 Allergy status to other drugs, medicaments and biological substances; Z79.82 Long term (current) use of aspirin; Z79.899 Other long term (current) drug therapy
CPT/HCPCS: 99282

== ENCOUNTER 2019-04-19 03:29 | Emergency (ER) | payer OTHER ==
[~2019-04-19] VITALS: Ht 172.7 cm; Wt 105.4 kg
--- OUTSIDE RECORDS SUMMARY | 2019-04-19 03:32 | XMS ---
PreManage Notification: DEEPALI JUDD Security Head Silverman Events No recent Security Events currently on file CRITERIA MET - 6 ED Visits in 6 Months - [facility] - Has Care Guidelines - [facility] - 2 Visits in 30 Days CARE PROVIDERS KATHE RAJPUT Family Medicine 02/10/2019-Current PHONE: Unknown Vernon Irving MD Primary Care 01/08/2018 PHONE: [phone] Jude Lawrence Primary Care Current PHONE: [phone] Niko has no Care Guidelines for this patient. Care History Medical/Surgical 02/21/[address] [facility] - PER RECENT ED VISIT- PATIENT IS NOW SEEING DR CORTES -UROLOGIST IN [place]. - PATIENT HAS AN APT WITH UROLOGIST ON SUNDAY FEBRUARY 24, 2019. 02/10/[address] [facility] - PATIENT HAS NOT SEEN UROLOGIST DR SCANLON SINCE 07/25/2018 AND CANCELLED HIS FOLLOWING APTS. - W NOTIFIED DR SCANLON UROLOGIST OF THE CURRENT ED VISITS- ED NOTES PROVIDED. - CHW CONTACTED DR RAJPUT OFFICE- PATIENT HAS A FOLLOW UP APT WITH DR RAJPUT ON 03/04/19. E.D. VISIT COUNT ([address] [facility] 9 [facility]. TOTAL 10 NOTE: Visits indicate total known visits. ED/UCC VISIT TRACKING (12 MO.) 04/19/2019 03:29 [facility] [place] [place] TYPE: Emergency COMPLAINT: - CATH CONCERN 04/06/2019 07:20 [place] TYPE: Emergency COMPLAINT: - CATHETER PROBLEM DIAGNOSES: - Allergy status to other drugs, medicaments and biological substances status - Type 2 diabetes mellitus without complications - Personal history of transient ischemic attack (TIA), and cerebral infarction without residual deficits - Other parts counterman (current) drug therapy - Personal history of nicotine dependence - Other mechanical complication of indwelling urethral catheter, initial encounter - Hyperlipidemia, unspecified - Other mechanical complication of indwelling urethral catheter, initial encounter - Gastro-esophageal reflux disease without esophagitis - Acquired absence of other specified parts of digestive tract - ferry terminal agent (current) use of aspirin - Presence of coronary angioplasty implant and graft - Essential (primary) hypertension 03/23/2019 12:44 [place] [place] TYPE: Emergency COMPLAINT: - RIGHT SIDED WEAKNESS/CONFUSTION DIAGNOSES: - Slurred speech - Other parts counterman (current) drug therapy - Type 2 diabetes mellitus without complications - Allergy status to narcotic agent status - skilled nursing (current) use of aspirin - Cerebral infarction, unspecified - Acquired absence of other specified parts of digestive tract - Gastro-esophageal reflux disease without esophagitis - Essential (primary) hypertension - Allergy status to other drugs, medicaments and biological substances status - Personal history of nicotine dependence 03/10/2019 14:54 [facility] [place] TYPE: Emergency DIAGNOSES: - skilled nursing (current) use of antithrombotics/antiplatelets - Gross hematuria - hematuria 03/01/2019 11:17 SARTH[facility] [place] TYPE: Emergency COMPLAINT: - POSS STROKE SYMPTOMS DIAGNOSES: - Other detention (current) drug therapy - Aphasia - Cerebral infarction due to thrombosis of left middle cerebral artery - Hyperlipidemia, unspecified - Essential (primary) hypertension - ferry terminal agent (current) use of oral hypoglycemic drugs - Gastro-esophageal reflux disease without esophagitis - Obesity, unspecified - skilled nursing (current) use of aspirin - Acquired absence of other specified parts of digestive tract - Cerebral infarction, unspecified - Type 2 diabetes mellitus without complications - Atherosclerotic heart disease of [place] coronary artery without angina pectoris - Presence of aortocoronary bypass graft - Presence of coronary angioplasty implant and graft - Personal history of malignant neoplasm of prostate 02/21/2019 00:04 SARTHAK [place] TYPE: Emergency COMPLAINT: - URINE PROBLEM DIAGNOSES: - Obesity, unspecified - Other detention (current) drug therapy - ferry terminal agent (current) use of oral hypoglycemic drugs - Retention of urine, unspecified - Personal history of malignant neoplasm of prostate - Presence of aortocoronary bypass graft - Essential (primary) hypertension - Acquired absence of other specified parts of digestive tract - Type 2 diabetes mellitus without complications - Personal history of nicotine dependence - Gastro-esophageal reflux disease without esophagitis - ferry terminal agent (current) use of aspirin - Hyperlipidemia, unspecified - Presence of coronary angioplasty implant and graft - Old myocardial infarction - Allergy status to other drugs, medicaments and biological substances status 02/07/2019 12:38 [place] [place] TYPE: Emergency COMPLAINT: - CATH PROBLEM DIAGNOSES: - Presence of aortocoronary bypass graft - Type 2 diabetes mellitus without complications - Obesity, unspecified - ferry terminal agent (current) use of aspirin - Presence of coronary angioplasty implant and graft - Essential (primary) hypertension - Acquired absence of other specified parts of digestive tract - Leakage of indwelling urethral catheter, initial encounter - Other mechanical complication of indwelling urethral catheter, initial encounter - Balanitis - Hyperlipidemia, unspecified - Atherosclerotic heart disease of [place] coronary artery without angina pectoris - Other parts counterman (current) drug therapy - Allergy status to [...] Presence of aortocoronary bypass graft - Other detention (current) drug therapy - Acquired absence of other specified parts of digestive tract - Balanitis - Personal history of malignant neoplasm of prostate - Essential (primary) hypertension - Leakage of indwelling urethral catheter, initial encounter - Atherosclerotic heart disease of [place] coronary artery without angina pectoris 02/06/2019 20:05 [...] without esophagitis - Atherosclerotic heart disease of [place] coronary artery without angina pectoris - Presence of aortocoronary bypass graft - skilled nursing (current) use of aspirin - Balanitis - Other parts counterman (current) drug therapy - ferry terminal agent (current) use of oral hypoglycemic drugs 09/12/2018 09:12 [place] TYPE: Emergency COMPLAINT: - CHEST PAIN/DIZZINESS DIAGNOSES: - ferry terminal agent (current) use of aspirin - Gastro-esophageal reflux disease without esophagitis - Allergy status to other drugs, medicaments and biological substances status - Obesity, unspecified - Personal history of nicotine dependence - ferry terminal agent (current) use of oral hypoglycemic drugs - Atherosclerotic heart disease of [place] coronary artery without angina pectoris - Dehydration - Other chest pain - Essential (primary) hypertension - Type 2 diabetes mellitus without complications - Other detention (current) drug therapy INPATIENT VISIT TRACKING (12 MO.) 03/23/2019 19:25 Patrick[place]o Pat[place] TYPE: Neuro Surgery DIAGNOSES: - Cerebral infarction due to embolism of left middle cerebral artery - Essential (primary) hypertension - Cerebral infarction due to unspecified occlusion or stenosis of left middle cerebral artery - Presence of cardiac pacemaker - Cerebrovascular disease, unspecified - Cerebral atherosclerosis - Hyperlipidemia, unspecified - ACUTE ISCHEMIC STROKE [facility]01/2019 [facility] DIAGNOSES: - Bradycardia, unspecified - Essential (primary) hypertension - Other chronic pain - Status post administration of tPA (rtPA) in a different facility within the last 24 hours prior to admission to current facility - Cerebral infarction due to embolism of left middle cerebral artery - Stroke (cerebrum) ([facility]) [I63.9] - Other specified heart block - Cerebral infarction due to unspecified occlusion or stenosis of left middle cerebral artery - Low back pain - Type 2 diabetes mellitus without complications - Restless legs syndrome - Cerebral atherosclerosis - stroke - Sleep apnea, unspecified - Atherosclerotic heart disease of [place] coronary artery without angina pectoris - Sick sinus syndrome [email or web address]
[2019-04-19] MEDS ORDERED: CIPRO500 MG PO (04:37)
[2019-04-19] MEDS ORDERED: PYRIDIUM200 MG PO (04:37)
== END 2019-04-19 04:58 | disposition home or self-care (01) ==
LOC: ED 03:29
PROC: 4A0D7LZ Measurement of Urinary Volume, Via Natural or Artificial Opening (ICD-10-PCS; principal; 2019-04-19)
DX: N39.0 Urinary tract infection, site not specified (principal); Z96.0 Presence of urogenital implants; I10 Essential (primary) hypertension; E11.9 Type 2 diabetes mellitus without complications; E78.5 Hyperlipidemia, unspecified; Z86.73 Personal history of transient ischemic attack (TIA), and cerebral infarction without residual deficits; Z87.891 Personal history of nicotine dependence; Z95.5 Presence of coronary angioplasty implant and graft; Z90.49 Acquired absence of other specified parts of digestive tract; Z88.8 Allergy status to other drugs, medicaments and biological substances; Z79.82 Long term (current) use of aspirin; Z79.84 Long term (current) use of oral hypoglycemic drugs; Z79.899 Other long term (current) drug therapy
CPT/HCPCS: 51798; 81001; 99283-25

== ENCOUNTER 2020-04-20 16:26 | Emergency (ER) | payer MEDICARE, OTHER ==
[~2020-04-20] VITALS: Ht 172.7 cm; Wt 105.4 kg
[~2020-04-20 16:26] MED LIST changes: +CIPRO500 MG PO; +CLOPIDOGREL75 MG PO; +PYRIDIUM200 MG PO
--- OUTSIDE RECORDS SUMMARY | 2020-04-20 16:30 | XMS ---
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 - Has Care Guidelines CARE PROVIDERS KATHE RAJPUT [facility] 02/10/2019-Current PHONE: [phone] Niko has no Care Guidelines for this patient. Care History Medical/Surgical 05/12/2019 [facility] - W CONTACTED DR CORTES OFFICE- IN REGARDS TO PATIENT RECENT ED VISITS. - PATIENT WAS LAST SEEN BY UROLOGIST ON 04/15/19. URO DYNAMIC PROCEDURE WAS DONE ON THAT DAY. - UROLOGIST WOULD LIKE TO DO A TURP PROCEDURE ON PATIENT- WAITING ON FOR CARDIOLOGY REVIEW BEFORE PROCEDURE CAN BE DONE. - DR CORTES RN- STATED SHE WOULD CONTACT PATIENT TO SCHEDULE AN APT TO PROVIDE CATHETER CARE EDUCATION AND REVIEW URO DYNAMIC RESULTS. 02/21/2019 [facility] - PER RECENT ED VISIT- PATIENT IS NOW SEEING DR CORTES -UROLOGIST IN [place]. - PATIENT HAS AN APT WITH UROLOGIST ON SUNDAY FEBRUARY 24, 2019. 02/10/2019 [facility] - PATIENT HAS NOT SEEN UROLOGIST DR SCANLON SINCE 07/25/2018 AND CANCELLED HIS FOLLOWING APTS. - W NOTIFIED DR SCANLON UROLOGIST OF THE CURRENT ED VISITS- ED NOTES PROVIDED. - W CONTACTED DR RAJPUT OFFICE- PATIENT HAS A FOLLOW UP APT WITH DR RAJPUT ON 03/04/19. E.D. VISIT COUNT (12 MO.) [address] [facility] TOTAL 3 NOTE: Visits indicate total known visits. ED/UCC VISIT TRACKING (12 MO.) 04/20/2020 16:27 [place] TYPE: Emergency COMPLAINT: - POSSIBLE STROKE 05/31/2019 15:55 [place] TYPE: Emergency COMPLAINT: - HEAD PAIN,WEAKNESS IN RT HAND DIAGNOSES: - Gastro-esophageal reflux disease without esophagitis - termite control technician (current) use of aspirin - Cerebral infarction, unspecified - Allergy status to other drugs, medicaments and biological sub - Personal history of malignant neoplasm of prostate - Presence of coronary angioplasty implant and graft - Other termite control technician (current) drug therapy - Type 2 diabetes mellitus without complications - Essential (primary) hypertension - Paresthesia of skin - Hyperlipidemia, unspecified 05/11/2019 11:45 [place] [place] TYPE: Emergency COMPLAINT: - CATHETER PROBLEM DIAGNOSES: - Personal history of transient ischemic attack (TIA), and cere - Hyperlipidemia, unspecified - Atherosclerotic heart disease of [place] coronary artery witho - Essential (primary) hypertension - FDC (current) use of aspirin - Other termite control technician (current) drug therapy - Leakage of other urinary catheter, initial encounter - Personal history of nicotine dependence - Type 2 diabetes mellitus without complications - Obesity, unspecified - Leakage of other urinary catheter, initial encounter - Allergy status to other drugs, medicaments and biological sub - Gastro-esophageal reflux disease without esophagitis INPATIENT VISIT TRACKING (12 MO.) 06/01/2019 01:10 [facility] [place] TYPE: Pulmonology DIAGNOSES: 0. BRAIN ATTACK POST TPA [email or web address]
[2020-04-20] MEDS ORDERED: PLAVIX75 MG PO (19:42)
--- NOTE | 2020-04-21 06:25 | EKG ---
[facility] [address] [facility] [place] [address] Signed Sinus rhythm with 1st degree AV block Nonspecific intraventricular block Possible Inferior infarct (cited on or before 05-SEP-2016) Abnormal ECG When compared with ECG of 31-MAY-2019 16:23, NH interval has increased QRS duration has increased Questionable change in initial forces of Inferior leads Confirmed by TARSHA WINSTON MD ([id number]) on 04/21/2020 6:25:01 AM Electronically Signed By: TARSHA WINSTON MD 04/21/20 0625 PATIENT NAME: DEEPALI JUDD PATO Electrocardiogram DATE OF : 35 PHYSICIAN: TARSHA WINSTON MD REPORT #: [id number] REPORT IS CONFIDENTIAL AND NOT TO BE RELEASED WITHOUT AUTHORIZATION
== END 2020-04-20 19:52 | disposition home or self-care (01) ==
LOC: ED 16:26
DX: G45.9 Transient cerebral ischemic attack, unspecified (principal); E78.5 Hyperlipidemia, unspecified; E11.9 Type 2 diabetes mellitus without complications; I10 Essential (primary) hypertension; Z86.73 Personal history of transient ischemic attack (TIA), and cerebral infarction without residual deficits; I25.10 Atherosclerotic heart disease of native coronary artery without angina pectoris; K21.9 Gastro-esophageal reflux disease without esophagitis; Z88.8 Allergy status to other drugs, medicaments and biological substances; Z79.899 Other long term (current) drug therapy; Z79.01 Long term (current) use of anticoagulants; Z79.82 Long term (current) use of aspirin
CPT/HCPCS: 70450; 70496; 70498; 80053; 84484; 85025; 85610; 85730; 93005; 93010; 99285-25; J7030; Q9967

== ENCOUNTER 2021-02-28 17:36 | Emergency (ER) | payer MEDICARE, OTHER ==
[~2021-02-28] VITALS: Ht 172.7 cm; Wt 105.4 kg
[~2021-02-28 17:36] MED LIST changes: +PLAVIX75 MG PO
[2021-02-28] MEDS ORDERED: ASPIRIN325 MG PO (18:16)
[2021-02-28] MEDS ORDERED: GLIMEPIRIDE4 MG PO (18:18)
[2021-02-28] MEDS ORDERED: OXYBUTYNIN CHLOR5 MG PO (18:19)
[2021-02-28] MEDS ORDERED: FLOMAX0.4 MG PO (18:21)
[2021-02-28] MEDS ORDERED: BICALUTAMIDE50 MG PO (18:22)
[2021-02-28] MEDS ORDERED: PIOGLITAZONE HC15 MG PO (18:22)
--- NOTE | 2021-02-28 19:34 | EKG ---
[facility] [address] [facility] [place] [address] Signed Normal sinus rhythm Incomplete right bundle branch block Inferior infarct (cited on or before 05-SEP-2016) Abnormal ECG When compared with ECG of 20-APR-2020 17:22, VT interval has decreased Confirmed by TARSHA WINSTON MD ([id number]) on 02/28/2021 7:34:21 PM Electronically Signed By: TARSHA WINSTON MD 02/28/21 193 PATIENT NAME: DEEPALI JUDD PATO Electrocardiogram DATE OF : 35 PHYSICIAN: TARSHA WINSTON MD REPORT #: [id number] REPORT IS CONFIDENTIAL AND NOT TO BE RELEASED WITHOUT AUTHORIZATION
== END 2021-02-28 21:09 | disposition home or self-care (01) ==
LOC: ED 17:36
DX: K21.9 Gastro-esophageal reflux disease without esophagitis (principal); R07.89 Other chest pain; E78.5 Hyperlipidemia, unspecified; E11.9 Type 2 diabetes mellitus without complications; I10 Essential (primary) hypertension; Z86.73 Personal history of transient ischemic attack (TIA), and cerebral infarction without residual deficits; I25.10 Atherosclerotic heart disease of native coronary artery without angina pectoris; E66.9 Obesity, unspecified; Z88.8 Allergy status to other drugs, medicaments and biological substances; Z79.899 Other long term (current) drug therapy; Z79.82 Long term (current) use of aspirin
CPT/HCPCS: 36415; 71045; 80053; 83735; 83880; 84484; 85025; 93005; 93010; 99285-25

== ENCOUNTER → 2022-04-22 | Emergency (ER) | payer MEDICARE, OTHER ==
[~2022-04-22] VITALS: Ht 172.7 cm; Wt 105.4 kg
[~2022-04-22] MED LIST changes: +ALOGLIPTIN12.5 MG PO; +ASPIRIN325 MG PO; +BICALUTAMIDE50 MG PO; +CHOLESTYRAMINE378 GM PO; +DIPHENOXYLATE-1 EACH PO; +FLOMAX0.4 MG PO; +INSULIN GL100 UNIT/1 SUB-Q; +PIOGLITAZONE HC15 MG PO; +TORSEMIDE10 MG PO
== END ==
LOC: ED 10:08
DX: R19.7 Diarrhea, unspecified (principal); I10 Essential (primary) hypertension; E11.9 Type 2 diabetes mellitus without complications; E78.5 Hyperlipidemia, unspecified; Z86.73 Personal history of transient ischemic attack (TIA), and cerebral infarction without residual deficits; K21.9 Gastro-esophageal reflux disease without esophagitis; Z95.1 Presence of aortocoronary bypass graft; Z79.899 Other long term (current) drug therapy; Z79.02 Long term (current) use of antithrombotics/antiplatelets; Z79.82 Long term (current) use of aspirin; Z79.4 Long term (current) use of insulin
CPT/HCPCS: 36415; 80053; 83735; 85025